=== PATIENT | female | born 1980 | race Caucasian/White ===

== ENCOUNTER 2023-04-17 10:27 | Emergency (ER) | payer BC, SELFPAY ==
[2023-04-17 10:34] VITALS: BP 123/90; PULSE 94; RESP 16; TEMP 36.7; O2SAT 96; BMI 36.0
--- NOTE | 2023-04-17 10:39 | XR_ITS ---
The [address] [address] Patient Name: ALEN TURNER MRN: [id number] date: 1980 Sex: F Assigned Patient Location: ER Current Patient Location: ER Accession/Order Number: [id number] Exam Date: 04/17/2023 10:45 Report Date: 04/17/2023 11:04 At the request of: KWABENA GONZALEZ Procedure: XR knee RT 4V EXAM: XR knee RT 4V HISTORY: Fall; technologist notes state right knee pain, locking and popping following a fall and twisting injury last night. COMPARISON: None. TECHNIQUE: 4 views of the right knee performed. FINDINGS: The bony alignment and mineralization are normal. There is no fracture. The joint spaces are normal. There is no joint effusion at the knee. There is no soft tissue abnormality. XR/XR knee RT 4V IMPRESSION: Unremarkable right knee series. Electronically authenticated by: PAMELA GRIER Date: 04/17/2023 11:04
--- NOTE | 2023-04-17 10:44 | ED.LOWEXI1 ---
HPI - Extremity Injury (Lower) General Chief Complaint: Extremity Injury, Lower Stated Complaint: RIGHT KNEE PAIN, TRAUMATIC Time Seen by Provider: 04/17/23 10:42 Source: patient Mode of arrival: walk-in Limitations: no limitations History of Present Illness HPI Narrative: 43-year-old female presents for right knee pain. It twisted last night and she fell. It hurts to bear weight on it and does not hurt much to push on it. No other injury was sustained, no pain in the ankle or hip. She is never had issues with this knee previously. Related Data Previous Rx's Medication Instructions Recorded acetaminophen 300 mg-codeine 30 mg 1 tab PO Q6H PRN pain 5 days #20 04/17/23 tablet tabs ibuprofen 800 mg tablet 800 mg PO Q8H PRN pain #20 tabs 04/17/23 Allergies Allergy/AdvReac Type Severity Reaction Status Date / Time No Known Drug Allergies Allergy Verified 04/17/23 10:34 Review of Systems ROS Narrative A ten point review of systems is negative except as noted above. PFSH PFSH Social History Smoking status: Current some day smoker Exam Narrative Exam Narrative: Nurses note and vital signs reviewed and patient is not hypoxic. General: The patient appears well and in no apparent distress. Patient is resting comfortably on cart. Skin: Warm, dry, no pallor noted. There is no rash noted. Head: Normocephalic, atraumatic Eye: Normal conjunctiva, no drainage Ears, Nose, Mouth, and Throat: oral mucosa is moist. Nares patent. Cardiovascular: Regular Rate and Rhythm Respiratory: Patient is in no distress, no accessory muscle use, lungs are clear to auscultation, no wheezing, rales or rhonchi Back: non-tender GI: Soft and nontender Musculoskeletal: The right ankle and hip are nontender. The right knee has no obvious deformity or palpable tenderness Neurological: A&O, normal speech Psychiatric: Cooperative Constitutional Vital Signs, click to edit/add: Last Vital Signs Temp 98.1 F 04/17/23 10:34 Pulse 94 H 04/17/23 10:34 Resp 16 04/17/23 10:34 BP 123/90 04/17/23 10:34 Pulse Ox 96 04/17/23 10:34 O2 Del Method Room Air 04/17/23 10:34 Course Vital Signs Vital signs: Vital Signs Temperature 98.1 F 04/17/23 10:34 Pulse Rate 94 H 04/17/23 10:34 Respiratory Rate 16 04/17/23 10:34 Blood Pressure 123/90 04/17/23 10:34 Pulse Oximetry 96 04/17/23 10:34 Oxygen Delivery Method Room Air 04/17/23 10:34 Temperature 98.1 F 04/17/23 10:34 Pulse Rate 94 H 04/17/23 10:34 Respiratory Rate 16 04/17/23 10:34 Blood Pressure 123/90 04/17/23 10:34 Pulse Oximetry 96 04/17/23 10:34 Oxygen Delivery Method Room Air 04/17/23 10:34 MDM - Extremity Injury (Lower) MDM Narrative Medical decision making narrative: X-ray per radiologist shows no acute findings. Knee immobilizer applied, application checked by me and found to be appropriate, she is neurovascularly intact. She will follow-up with orthopedics. Treatment diagnosis and follow-up were discussed with the patient Differential Diagnosis Differential diagnosis: Likely other (Knee sprain, knee strain, knee fracture, knee effusion) Imaging Data Knee: Radiologist's impression: ITS Impressions Knee X-Ray 04/17/23 10:39 IMPRESSION: Unremarkable right knee series. Electronically authenticated by: PAMELA GRIER Date: 04/17/2023 11:04 Discharge Plan Discharge Chief Complaint: Extremity Injury, Lower Clinical Impression: Right knee sprain Patient Disposition: Home, Self-Care Time of Disposition Decision: 11:15 Condition: Good Mode of Transportation: Private Vehicle Prescriptions / Home Meds: New acetaminophen-codeine 300-30 mg tablet 1 tab PO Q6H PRN (Reason: pain) 5 Days Qty: 20 0RF ibuprofen 800 mg tablet 800 mg PO Q8H PRN (Reason: pain) Qty: 20 0RF Instructions: Knee Sprain (ED) Additional Instructions: Follow-up with Dr. Liu Stand Alone Forms: Portal Instructions Referrals: Physician,Non-Staff, MD [Primary Care Provider] - 1 week
[2023-04-17] MEDS: ACETAMINOPHEN 300 MG/ 30 MG CODEINE TABLET 1 TAB PO (11:29)
== END 2023-04-17 11:33 | disposition home or self-care (01) ==
PROVIDERS: Emergency Provider Emergency Medicine
DX: S83.91XA Sprain of unspecified site of right knee, initial encounter (principal); W19.XXXA Unspecified fall, initial encounter; F17.210 Nicotine dependence, cigarettes, uncomplicated
CPT/HCPCS: 73564; 99283

== ENCOUNTER 2023-04-24 08:47 | Outpatient (OUT) | payer BC, SELFPAY ==
--- NOTE | 2023-04-24 | XR_ITS ---
The [address] [address] Patient Name: ALEN TURNER MRN: [id number] date: 1980 Sex: F Assigned Patient Location: Current Patient Location: Accession/Order Number: [id number] Exam Date: 04/24/2023 08:49 Report Date: 04/24/2023 09:23 At the request of: URSZULA AVILA Procedure: XR knee RT 4V PROCEDURE: XR knee RT 4V HISTORY: RIGHT KNEE PAIN since falling COMPARISON: XR knee right 04/17/2023 FINDINGS: BONES:No fracture, acute abnormality, or significant arthropathy. SOFT TISSUES:No visible soft tissue swelling. EFFUSION:None visible. OTHER: Negative. XR/XR knee RT 4V IMPRESSION: 1. No acute bone abnormality or significant degenerative joint disease. Electronically authenticated by: URSZULA ELIZONDO Date: 04/24/2023 09:23
--- OUTSIDE RECORDS SUMMARY | 2023-04-24 08:52 | XMS_ITS | CCD ---
Author Name Unknown Address [facility] [address] [place] [address] Organization [facility] Care Team Providers Care Trichologist Name Role Phone Rafaela West Primary Care Physician LOUIS, DR GALAN Admitting Unavailable LOUIS, DR GALAN Attending Unavailable MISC, DR BOLTON Primary Care Unavailable LOUIS, DR GALAN Consulting Unavailable JANETC, DR BOLTON Primary Care Unavailable JESUS, DR ELY Melissa Admitting Unavailcarrie LEE, DR ELY Melissa Attending Unavailabl e JESUS, DR ELY Melissa Consulting UnavailAnahy Hopson Attending Unavailable Rafaela West Attending Unavailable Rafaela West Attending Unavailable Rafaela West Attending Unavailable Rafaela West Attending Unavailable Shelia Gomez CNP Primary Care Provider [phone] Unavailable Primary Care Provider Gigi Morales MD Attending Unavailable SHELIA GOMEZ Referring Unavailable Medications Current Medications Medication Drug Class(es) Dates Sig (Normalized) Sig (Original) benzonatate 200 mg oral capsule (1 source) Non-narcotic Antitussive Start: 11-10-2021 End: 11-20-2021 take 1 capsule by mouth three times daily benzonatate 200 mg oral capsule 200 mg = 1 cap(s), Oral, TID, do not crush or chew, X 10 day(s), # 30 cap(s), Refills(s) 0, Pharmacy: [facility], 170, cm, 11/10/21 16:30:00 EDT, Height/Length Dosing, 110.6, kg, 11/10/21 16:30:00 EDT, Weight Dosing Start Date: 11/10/21 Stop Date: 11/20/21 Status: Ordered Brompheniramine / Pseudoephedrine (1 source) alpha-Adrenergic Agonist Start: 07-26-2021 take 10 mL by mouth four times daily for cough and congestion Bromfed DM oral syrup 10 mL, Oral, QID for cough and congestion, 200 mL, Refill(s) 0, [id number], 170, cm, 12/08/20 10:31:00 EDT, Height/Length Dosing, 113.5, kg, 12/08/20 10:31:00 EDT, Weight Dosing Start Date: 07/26/21 Status: Ordered cetirizine hydrochloride 10 mg oral tablet (1 source) Histamine-1 Receptor Antagonist Start: 12-13-2021 take 1 tablet by mouth once daily cetirizine 10 mg Tab 10 mg = 1 tab(s), Oral, Daily, # 90 tab(s), Refills(s) 3, Pharmacy: [facility], 170, cm, 12/13/21 17:01:00 EDT, Height/Length Dosing, 106.1, kg, 12/13/21 17:01:00 EDT, Weight Dosing Start Date: 12/13/21 Status: Ordered fluticasone propionate 0.05 mg/actuat metered dose nasal spray (1 source) Corticosteroid Start: 12-13-2021 End: 12-08-2022 take 1 spray(s) nasal route once daily Flonase 0.05 mg/inh nasal spray 1 spray(s), Nasal, Daily for 30 day(s), 16 gram, Refill(s) 11, each nostril, [facility], 170, cm, 12/13/21 17:01:00 EDT, Height/Length Dosing, 106.1, kg, 12/13/21 17:01:00 EDT, Weight Dosing Start Date: 12/13/21 Stop Date: 12/08/22 Status: Ordered methylPREDNISolone 4 mg oral tablet (1 source) Corticosteroid Start: 07-26-2021 End: 08-01-2021 Medrol 4 mg Tab = 1 packet(s), Oral, As Directed, as directed on package labeling, X 6 day(s), # 21 tab(s), Refills(s) 0, Pharmacy: [id number], 170, cm, 12/08/20 10:31:00 EDT, Height/Length Dosing, 113.5, kg, 12/08/20 10:31:00 EDT, Weight Dosing Start Date: 07/26/21 Stop Date: 08/01/21 Status: Ordered ondansetron 4 mg oral tablet (4 sources) Serotonin-3 Receptor Antagonist Start: 01-04-2021 take 1 tablet by mouth every eight hours as needed for nausea Zofran 4 mg Tab 4 mg = 1 tab(s), Oral, q8hr, PRN Nausea, # 20 tab(s), Refills(s) 2, Pharmacy: [facility], 170, cm, 12/08/20 10:31:00 EDT, Height/Length Dosing, 113.5, kg, 12/08/20 10:31:00 EDT, Weight Dosing Start Date: 01/04/21 Status: Ordered phentermine hydrochloride 37.5 mg oral tablet (2 sources) Sympathomimetic Amine Anorectic Start: 11-10-2021 End: 12-10-2021 take 1 tablet by mouth once daily 1 hour(s) after mealtime Adipex-P 37.5 mg Tab 37.5 mg = 1 tab(s), Oral, Daily, 1 hour before or 2 hours after meals., X 30 day(s), # 30 tab(s), Refills(s) 0, Pharmacy: [facility], 170, cm, 11/10/21 16:30:00 EDT, Height/Length Dosing, 110.6, kg, 11/10/21 16:30:00 EDT, Weight Dosing Start Date: 11/10/21 Stop Date: 12/10/21 Status: Ordered Start: 10-06-2021 End: 11-05-2021 take 1 tablet by mouth once daily 1 hour(s) after mealtime Adipex-P 37.5 mg Tab 37.5 mg = 1 tab(s), Oral, Daily, 1 hour before or 2 hours after meals. Adipex #1. OARRS reviewed. BMI>30., X 30 day(s), # 30 tab(s), Refills(s) 0, Pharmacy: [facility], 170, cm, 10/06/21 16:26:00 EDT, Height/Length Dosing, 114.3, kg, 080... Start Date: 10/06/21 Stop Date: 11/05/21 Status: Ordered predniSONE 20 mg oral tablet (1 source) Start: 11-10-2021 End: 11-15-2021 take 2 tablets by mouth once daily at mealtime predniSONE 20 mg Tab 40 mg = 2 tab(s), Oral, Daily, with food or milk, X 5 day(s), # 10 tab(s), Refills(s) 0, Pharmacy: [facility], 170, cm, 11/10/21 16:30:00 EDT, Height/Length Dosing, 110.6, kg, 11/10/21 16:30:00 EDT, Weight Dosing Start Date: 11/10/21 Stop Date: 11/15/21 Status: Ordered Completed/Discontinued Medications Medication Drug Class(es) Dates Sig (Normalized) Sig (Original) Albuterol (Eqv-ProAir HFA) 90 mcg/inh inhalation aerosol (4 sources) Start: 07-26-2021 take 1 dose by inhalation every six hours Albuterol (Eqv-ProAir HFA) 90 mcg/inh inhalation aerosol 2 puff(s), Inhalation, q6hr, 1 EA, Refill(s) 5, [id number], 170, cm, 12/08/20 10:31:00 EDT, Height/Length Dosing, 113.5, kg, 12/08/20 10:31:00 EDT, Weight Dosing Start Date: 07/26/21 Status: Ordered nebulizer machine and mouthpiece (4 sources) Start: 12-07-2020 nebulizer machine and mouthpiece nebulizer machine and mouthpiece, See Instructions, 1 EA, 0, Please dispense 1 nebulizer machine with adult mouthpiece kit. J20.8, Supply Start Date: 12/07/20 Status: Ordered Problems Active Problems Problem Classification Problem Date Documented Date Episodic/Chronic Administrative/social admission (6 sources) Patient encounter status; Translations: [Persons encountering health services in other specified circumstances] Onset: 10-05-2021 Episodic Anxiety disorders (4 sources) Mixed anxiety and depressive disorder 09-25-2020 Chronic Chronic obstructive pulmonary disease and bronchiectasis (4 sources) Bronchitis 09-25-2020 Episodic Conditions associated with dizziness or vertigo (4 sources) Dizziness and giddiness; Translations: [Unspecified disorder of vestibular function, unspecified ear] Onset: 11-11-2021 Episodic Immunizations and screening for infectious disease (8 sources) Exposure to sexually transmissible disorder; Translations: [Contact with or exposure to venereal diseases] Onset: 05-16-2022 Episodic Other nutritional; endocrine; and metabolic disorders (6 sources) Obesity; Translations: [Obesity, unspecified] Onset: 10-06-2021 10-26-2020 Chronic Other nutritional; endocrine; and metabolic disorders (2 sources) Obese class II; Translations: [Body mass index (BMI) 39.0-39.9, adult] Onset: 10-06-2021 Chronic Other nutritional; endocrine; and metabolic disorders (3 sources) Body mass index 30+ - obesity 10-06-2021 Chronic Other nutritional; endocrine; and metabolic disorders (3 sources) Finding of body mass index; Translations: [Body mass index (observable entity)] Onset: 05-16-2022 Chronic Other screening for suspected conditions (not mental disorders or infectious disease) (3 sources) Encounter for screening for diabetes mellitus; Translations: [Diabetes Risk Test Score] Onset: 05-16-2022 Episodic Other upper respiratory disease (4 sources) Allergic rhinitis 09-25-2020 Chronic Other upper respiratory infections (4 sources) Viral upper respiratory tract infection 12-02-2020 Episodic Spondylosis; intervertebral disc disorders; other back problems (4 sources) Low back pain 09-25-2020 Episodic Substance-related disorders (6 sources) Cocaine abuse; Translations: [Cocaine abuse, unspecified] Onset: 05-16-2022 Chronic Unclassified (4 sources) Non-smoker 09-25-2020 Unclassified (4 sources) Patient encounter status 10-26-2020 Unclassified (2 sources) COUGH, UNSPECIFIED; Translations: [COUGH, UNSPECIFIED] Onset: 05-17-2021 Past or Other Problems Problem Classification Problem Date Documented Da te Episodic/Chronic Acute bronchitis (1 source) Acute bronchitis, unspecified; Translations: [ACUTE BRONCHITIS UNSPECIFIED] Onset: 05-17-2021 Episodic Unclassified (1 source) COUGH, UNSPECIFIED; Translations: [COUGH, UNSPECIFIED] Onset: 05-14-2021 Unclassified (3 sources) 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 Amplification of target nucleic acid may have been Abnormal NEG [facility] Comment on above: Result Comment: affe cted by inhibitory substances present in the specimen. This test is intended for medical purposes only and is not valid for the evaluation of suspected sexual abuse or for other forensic purposes. In certain contexts, culture may be required to meet applicable laws and regulations for diagnosis of C. trachomatis and N. gonorrhoeae infections. Per 2014 CDC recommendations, this test does not include confirmation of positive results by an alternative nucleic acid target. Performed By: #### T RCMOL, VAGP, UCGP #### [address] [id number] [employer] Cover[employer] Consultant: Yoni Paniagua MD Gonorrhea Probe, Ur Result indeterminate . Amplification of target nucleic acid may have been Abnormal NEG [facility] Comment on above: Result Comment: affe cted by inhibitory substances present in the specimen. This test is intended for medical purposes only and is not valid for the evaluation of suspected sexual abuse or for other forensic purposes. In certain contexts, culture may be required to meet applicable laws and regulations for diagnosis of C. trachomatis and N. gonorrhoeae infections. Per 2014 CDC recommendations, this test does not include confirmation of positive results by an alternative nucleic acid target. Performed By: #### T RCMOL, VAGP, UCGP #### [place] [id number] [employer] Consultant: Yoni Paniagua MD HCV RNA,Quant,PCRon 05-18-19 23 HCV RNA,Quant Not detected Normal NOTDET [facility] Comment on above: Result Comment: INTERPRETIVE INFORMATION: HCV by Quantitative NAAT, Serum or Plasma Normal Range for this assay is Not Detected . The quantitative range of this assay is 15-30,000,000 IU/mL (1.17-7.48 log IU/mL). Lower limit of quantitation(LLoQ) is 15 IU/mL(1.17 log IU/mL). LLoQ values do not apply to diluted specimens. A result of Not Detected does not rule out the presence of inhibitors in the patient specimen or hepatitis C virus RNA concentrations below the level of detection of the test. Care should be taken when interpreting any single viral load determination. This test should not be used for blood donor screening, associated re-entry protocols, or for screening Human Cell, Tissues and Cellular Tissue-Based Products (HCT/P). Performed By: #### H CVQN, QBVD, HIVQN #### [facility] [address] [place] [address] [id number] [employer] Consultant: Yoni Paniagua MD HIV-1,Quant,RNAon 05-17-2022 HIV-1,RNA Not detected Normal NOTDET [facility] Comment on above: Result Comment: INTERPRETIVE INFORMATION: HIV-1 by Quantitative NAAT,Plasma Normal range for this assay is Not Detected . The quantitative range of this assay is 1.30-6.78 log copies/mL (20-6,000,000 copies/mL). An interpretation of Not Detected does not rule out the presence of inhibitors or HIV-1 RNA detection of the assay. Care should be taken in the interpretation of any single viral load determination. The clinical significance of changes in HIV-1 RNA concentration has not been fully established. However, a change of 0.5 log copies/mL may be significant.This assay should not be used for blood donor screening, associated re-entry protocols, or for screening Human Cell, Tissues and Tissue based Products(HCT/P). This assay has not been evaluated in patients younger than 19 years of age. Performed By: #### H CVQN, QBVD, HIVQN #### [facility] [address] [place] [address] [phone] [employer] Consultant: Yoni Paniagua MD Source .PLASMA Normal [facility] Comment on above: Performed By: #### H CVQN, QBVD, HIVQN #### [facility] [address] [place] [address] [phone] [employer] Consultant: Yoni Paniagua MD Trich Vag, Molecularon 05-17 Trich Vag, Molecular Negative Normal NEG [facility] Comment on above: Result Comment: T. v aginalis DNA not detected Results should be interpreted in conjunction with other clinical data. This test is intended for medical purposes only and is not valid for the evaluation of suspected sexual abuse or for other forensic purposes. This test has not been evaluated in women or in patients less than 16 years of age. Performed By: #### T RCMOL, VAGP, UCGP #### [address] [address] [employer] Consultant: Yoni Paniagua MD Source: .URINE Normal [facility] Comment on above: Performed By: #### T RCMOL, VAGP, UCGP #### [address] [id number] [employer] Consultant: Yoni Paniagua MD VDRL, Quantitativeon 023 VDRL, Quantitative Non-Reactive Normal NR [facility] Comment on above: Performed By: #### H CVQN, QBVD, HIVQN #### [address] [address] [employer] Consultant: Yoni Paniagua MD Vaginitis DNA Probeon 2022 Zelda Negative Normal NEG [facility] Comment on above: Result Comment: for Zelda sp. Method of testing is a DNA probe intended for detection and identification of Zelda species, Gardnerella vaginalis, and Trichomonas vaginalis nucleic acid in vaginal fluid specimens from patients with symptoms of vaginitis/vaginosis. Performed By: #### T RCMOL, VAGP, UCGP #### [facility] [address] [place] [id number] [employer] Consultant: Yoni Paniagua MD Gardnerella Negative Normal NEG [facility] Comment on above: Result Comment: for Gardnerella vaginalis Performed By: #### T RCMOL, VAGP, UCGP #### [address] [address] [employer] Consultant: Yoni Paniagua MD Trichomonas Negative Normal NEG [facility] Comment on above: Result Comment: for Trichomonas Vaginalis Performed By: #### T RCMOL, VAGP, UCGP #### [facility] [address] [place], [place] [phone] [employer] Consultant: Yoni Paniagua MD Source .VAGINAL SWAB Normal [facility] Comment on above: Performed By: #### T RCMOL, VAGP, UCGP #### [facility] [address] [place], [place] [phone] [employer] Consultant: Yoni Paniagua MD Laboratory - Microbiology an d Antimicrobial susceptibilityon 05-16-2022 HIV 1 RNA SALOME+probe [#/Vol] Not detected (NOTDET ) [facility] Comment on above: Note: INTERPRETIVE I NFORMATION: HIV-1 by Quantitative NAAT,PlasmaNormal range for this assay is Not Detected . The quantitative range of thisassay is 1.30-6.78 log copies/mL (20-6,000,000 copies/mL). An interpretation of Not Detected does not rule out the presence of inhibitors or HIV-1 RNAdetection of the assay.Care should be taken in the interpretation of any single viral loaddetermination. The clinical significance of changes in HIV-1 RNA concentrationhas not been fully established. However, a change of 0.5 log copies/mL may besignificant.This assay should not be used for blood donor screening, associatedre-entry protocols, or for screening Human Cell, Tissues and Tissue basedProducts(HCT/P).This assay has not been evaluated in patients younger than 19 years of age.Responsible Observer: BETSY PARHAM ([id number]) No Panel Informationon 05-16 HCV RNA,Quant Not detected (NOTDET ) [facility] Comment on above: Note: INTERPRETIVE I NFORMATION: HCV by Quantitative NAAT, Serum or PlasmaNormal Range for this assay is Not Detected . The quantitative range of thisassay is 15-30,000,000 IU/mL (1.17-7.48 log IU/mL). Lower limit ofquantitation(LLoQ) is 15 IU/mL(1.17 log IU/mL). LLoQ values do not apply todiluted specimens.A result of Not Detected does not rule out the presence of inhibitors in thepatient specimen or hepatitis C virus RNA concentrations below the level ofdetection of the test. Care should be taken when interpreting any single viralload determination.This test should not be used for blood donor screening, associated re-entryprotocols, or for screening Human Cell, Tissues and Cellular Tissue-BasedProducts (HCT/P).Responsible Observer: BETSY PARHAM ([id number]) Reported Physicians See Note [facility] Comment on above: Note: Reported Physi cians:Ordering: Shelia GomezAttending: Shelia GomezReferring: Shelia Gomez Source .PLASMA [facility] Comment on above: Note: Responsible Ob primer powder blender wet: GABBY THAO ([id number]) VDRL, Quantitative Non-Reactive (NR ) [facility] Comment on above: Note: Responsible Ob primer powder blender wet: BEVERLY JC (189) Zelda Negative (NEG ) [facility] Comment on above: Note: for Zelda sp .Method of testing is a DNA probe intended for detection and identification ofCandida species, Gardnerella vaginalis, and Trichomonas vaginalis nucleic acidin vaginal fluid specimens from patients with symptoms of vaginitis/vaginosis.Responsible Observer: DAYNA BLISS ([id number]) Chlamydia Probe, Ur Result indeterminate . Amplification of target nucleic acid may have been Abnormal (NEG ) [facility] Comment on above: Note: affected by in hibitory substances present in the specimen.This test is intended for medical purposes only and is not valid for theevaluation of suspected sexual abuse or for other forensic purposes.In certain contexts, culture may be required to meet applicable laws andregulations for diagnosis of C. trachomatis and N. gonorrhoeae infections.Per 2014 CDC recommendations, this test does not include confirmation ofpositive results by an alternative nucleic acid target.Responsible Observer: TIMMY VIDAL ([id number]) Gardnerella Negative (NEG ) [facility] Comment on above: Note: for Gardnerell a vaginalisResponsible Observer: DAYNA BLISS ([id number]) Gonorrhea Probe, Ur Result indeterminate . Amplification of target nucleic acid may have been Abnormal (NEG ) [facility] Comment on above: Note: affected by in hibitory substances present in the specimen.This test is intended for medical purposes only and is not valid for theevaluation of suspected sexual abuse or for other forensic purposes.In certain contexts, culture may be required to meet applicable laws andregulations for diagnosis of C. trachomatis and N. gonorrhoeae infections.Per 2014 CDC recommendations, this test does not include confirmation ofpositive results by an alternative nucleic acid target.Responsible Observer: TIMMY VIDAL ([id number]) Reported Physicians See Note [facility] Comment on above: Note: Reported Physi cians:Ordering: Shelia GomezAttending: Shelia GomezReferring: Shelia Gomez Source .VAGINAL SWAB [facility] Comment on above: Note: Responsible Ob primer powder blender wet: GERALDO ARGUELLO ([id number]) Source: .URINE [facility] Comment on above: Note: Responsible Ob primer powder blender wet: GERALDO ARGUELLO ([id number]) Trich Vag, Molecular Negative (NEG ) [facility] Comment on above: Note: T. vaginalis D NA not detectedResults should be interpreted in conjunction with other clinical data.This test is intended for medical purposes only and is not valid for theevaluation of suspected sexual abuse or for other forensic purposes.This test has not been evaluated in women or in patients less than 16years of age.Responsible Observer: STEVE MARTINES ([id number]) Trichomonas Negative (NEG ) [facility] Comment on above: Note: for Trichomona s VaginalisResponsible Observer: DAYNA BLISS ([id number]) Family Medicine Office/Clini c Noteon 12-14-2021 Family Medicine Office/Clinic Note Chief Complaint pt here for adipex #3. down 10lbs. History of Present Illness Pt presents today for Adipex f/u. Adipex #:3 Started at 39.55 kg 1st month on medication: 38.27 kg 2nd month on medication: 36.71 kg Feeling really good. The day after her last dose as started. She started having vertigo sleeping. This happened at work. Went to the ER. Was sitting down and then stood up, felt lightheaded. A few minutes later, room started spinning, felt like on [id number], 5 minutes vomited. Went to [place] ER- gave her antiemetic, and Meclizine and Valium. Then sent her home with Meclizine but has not needed it. Allergies are horrible, taking Advil allergy without relief. Dizziness has never happened to her before when she was on Adipex before. Sleeping well: yes Chest pain: no Tremors: no Headaches: No Increased heart rate: No Increased blood pressure: No Heart fluttering: No Blurred Vision: No Insomnia: No Dry mouth: No Constipation: No Nervousness: No Eating habits-logs: smaller portions, healthy options Exercise-logs: was walking a lot; but since new job gets 10,000 steps in at work and in process of moving. Concerns/complaints: none Review of Systems Constitutional: no fever, no chills, no sweats, no weakness, no fatigue, no body aches. Skin: no rash, no skin lesions, no petechiae. Eyes: no eye irritation, no eye drainage, no blurry vision, no double vision, no loss of vision, no foreign body sensation. Ears: no ear pain, no __ ear drainage, no_ itching, no_ tinnitus, no _ popping, no _ muffled hearing. Nose: clear rhinorrhea, mild nasal congestion, no bloody noses, no upper dental pain, reports PND. Throat: no pain, no difficulty swallowing, no laryngitis, reports hoarseness. Respiratory: no shortness of breath, no cough, no wheezing. Cardiovascular: no chest pain, no palpitations, no edema. Gastrointestinal: no nausea, no vomiting, no diarrhea, no bleeding, no abdominal pain. Musculoskeletal: no back pain, no neck pain, no shoulder pain, no knee pain, no trauma/injury, no joint pain, no joint swelling, no muscle aches, no change in ROM. Neurovascular: no numbness, no tingling, no headaches, no dizziness. Psychological: see depression screen. Physical Exam Vitals & Measurements T: 36.5 ?C(Oral) HR: 92(Peripheral) BP: 132/70 SpO2: 98% HT: 67 in HT: 170 cm WT: 106.1 kg WT: 233.42 lb BMI: 36.71 General: well developed, well groomed, obese in no acute distress. Eyes: pupils equal, round, reactive to light. Conjunctivae normal and sclera clear. Extraocular movement intact. Ears: bilateral external canals intact , no discharge. Bilateral tympanic membrane yellow and intact, light reflex present. No pain with manipulation of tragus and pinna bilaterally. Hearing grossly normal to conversational speech. Nose: no congestion, no erythema; pink & moist turbinates; no rhinorrhea. Mild congestion noted. Mouth: mucous membranes pink, moist and intact. [place] posterior oropharynx, no palatal inflammation, uvula midline, no cobble-stoning, no enlarged tonsils, no tonsillar exudate, no ulcers, with active post nasal drip. Neck: supple, no masses palpable. Trachea midline. No palpable cervical adenopathy. Lungs: normal respiratory effort. Lungs clear and equal to auscultation throughout all smith anterior and posterior. Cardiovascular: S1 and S2 present, with regular rate and rhythm. No murmur. No peripheral edema. Abdomen: soft, non-distended, non-tender. Bowel sounds active throughout. Musculoskeletal: Gait steady without assistance. Neurologic: Cranial nerves II-XII grossly intact. Skin: [place], warm and dry. No rashes, ulcerations, or suspicious lesions noted on visible/exposed skin. Mental status: alert and oriented x 3. Normal mood and affect, normal behavior for age. Assessment/Plan 1. Encounter for weight management (Z76.89: Persons encountering health services in other specified circumstances) Adipex #3 refilled. F/u in 1 month. Continue diet and exercise; over and beyond work now. OARRS reviewed. Ordered: phentermine, 37.5 mg = 1 tab(s), Oral, Daily, 1 hour before or 2 hours after meals., X 30 day(s), # 30 tab(s), Refills(s) 0, Pharmacy: [facility], 170, cm, 12/13/21 17:01:00 EDT, Height/Length Dosing, 106.1, kg, 12/13/21 17:01:00 EDT, Weight Dosing 2. Allergic rhinitis (J30.9: Allergic rhinitis, unspecified) Avoid known triggers. Will treat symptoms with daily Zyrtec and nightly Flonase nasal spray, reviewed dosing, s/e, and administration. Try sinus irrigation kits as well. F/u PRN. Ordered: cetirizine, 10 mg = 1 tab(s), Oral, Daily, # 90 tab(s), Refills(s) 3, [facility], 170, cm, 12/13/21 17:01:00 EDT, Height/Length Dosing, 106.1, kg, 12/13/21 17:01:00 EDT, Weight Dosing fluticasone nasal, 1 spray(s), Nasal, Daily for 30 day(s), 16 gram, Refill(s) 11, each nostril, [facility], 170, cm, 12/13/21 17:01:00 EDT, Height/Length Dosing, 106.1, kg, (more content not included)... [facility] Comment on above: Result Comment: Elec tronically Signed By: Rafaela West CNP.mikael\Date and Time Signed: 12/14/21 13:35 EDT Patient Educationon 12-15-19 Patient Education Immunology Allergic Rhinitis, Adult Allergic rhinitis is an allergic reaction that affects the mucous membrane inside the nose. It causes sneezing, a runny or stuffy nose, and the feeling of mucus going down the back of the throat (postnasal drip). Allergic rhinitis can be mild to severe. There are two types of allergic rhinitis: ? Seasonal. This type is also called hay fever. It happens only during certain seasons. ? Perennial. This type can happen at any time of the year. What are the causes? This condition happens when the body's defense system (immune system) responds to certain harmless substances called allergens as though they were germs. Seasonal allergic rhinitis is triggered by pollen, which can come from grasses, trees, and weeds. Perennial allergic rhinitis may be caused by: ? House dust mites. ? Pet dander. ? Mold spores. What are the signs or symptoms? Symptoms of this condition include: ? Sneezing. ? Runny or stuffy nose (nasal congestion). ? Postnasal drip. ? Itchy nose. ? Tearing of the eyes. ? Trouble sleeping. ? Daytime sleepiness. How is this diagnosed? This condition may be diagnosed based on: ? Your medical history. ? A physical exam. ? Tests to check for related conditions, such as: ? Asthma. ? [place] eye. ? Ear infection. ? Upper respiratory infection. ? Tests to find out which allergens trigger your symptoms. These may include skin or blood tests. How is this treated? There is no cure for this condition, but treatment can help control symptoms. Treatment may include: ? Taking medicines that block allergy symptoms, such as antihistamines. Medicine may be given as a shot, nasal spray, or pill. ? Avoiding the allergen. ? Desensitization. This treatment involves getting ongoing shots until your body becomes less sensitive to the allergen. This treatment may be done if other treatments do not help. ? If taking medicine and avoiding the allergen does not work, new, stronger medicines may be prescribed. Follow these instructions at home: ? Find out what you are allergic to. Common allergens include smoke, dust, and pollen. ? Avoid the things you are allergic to. These are some things you can do to help avoid allergens: ? Replace carpet with wood, tile, or vinyl maria luisa. Carpet can trap dander and dust. ? Do not smoke. Do not allow smoking in your home. ? Change your heating and air conditioning filter at least once a month. ? During allergy season: ? Keep windows closed as much as possible. ? Plan outdoor activities when pollen counts are lowest. This is usually during the evening hours. ? When coming indoors, change clothing and shower before sitting on furniture or bedding. ? Take gycg-cpe-vizpzry and prescription medicines only as told by your health care provider. ? Keep all follow-up visits as told by your health care provider. This is important. Contact a health care provider if: ? You have a fever. ? You develop a persistent cough. ? You make whistling sounds when you breathe (you wheeze). ? Your symptoms interfere with your normal daily activities. Get help right away if: ? You have shortness of breath. Summary ? This condition can be managed by taking medicines as directed and avoiding allergens. ? Contact your health care provider if you develop a persistent cough or fever. ? During allergy season, keep windows closed as much as possible. This information is not intended to replace advice given to you by your health care provider. Make sure you discuss any questions you have with your health care provider. Document Released: 11/15/2001 Document Revised: 02/02/2018 Document Reviewed: 03/30/2017 [employer] Patient Education ? 2020 [employer] Nutrition Healthy Eating Following a healthy eating pattern may help you to achieve and maintain a healthy body weight, reduce the risk of chronic disease, and live a long and productive life. It is important to follow a healthy eating pattern at an appropriate calorie level for your body. Your nutritional needs should be met primarily through food by choosing a variety of nutrient-rich foods. What are tips for following this plan? Reading food labels ? Read labels and choose the following: ? Reduced or low sodium. ? Juices with 100% fruit juice. ? Foods with low saturated fats and high polyunsaturated and monounsaturated fats. ? Foods with whole grains, such as whole wheat, cracked wheat, brown rice, and wild rice. ? Whole grains that are fortified with folic acid. This is recommended for women who are or who want to become . ? Read labels and avoid the following: ? Foods with a lot of added sugars. These include foods that contain brown sugar, corn sweetener, corn syrup, dextrose, fructose, glucose, high-fructose corn syrup, honey, invert sugar, lactose, malt syrup, maltose, molasses, raw sugar, sucrose, trehalose, or turbinado sugar. ? Do not eat more than the following amounts (more content not included)... [facility] Ambulatory Visit Summaryon 1 Ambulatory Visit Summary ALEN GOMEZ :1980 Visit Date:12/13/2021 Ambulatory Visit Instructions Your Diagnosis Encounter for weight management BMI 36.0-36.9,adult Obesity, Obesity Non-smoker Allergic rhinitis Your Care Team Attending Physician - Rafaela West CNP Primary Care Physician - Rafaela West CNP This Is Your Medications List cetirizine (cetirizine 10 mg Tab) fluticasone nasal (Flonase 0.05 mg/inh nasal spray) phentermine (Adipex-P 37.5 mg Tab) Contact prescribing physician if questions or concerns Misc Prescription (nebulizer machine and mouthpiece) albuterol (Albuterol (Eqv-ProAir HFA) 90 mcg/inh inhalation aerosol) ondansetron (Zofran 4 mg Tab) Procedures Performed Tubal ligation. Discharge Vitals Temperature (Oral) 36.5 ?C Heart Rate (Peripheral) 92 Blood Pressure 132/70 Height 170 cm Height 67 in Weight 106.1 kg Weight 233.42 lb BMI 36.71 What to do next Scheduled Follow-Up Appointments 2021 5:00 PM EST With: Rafaela West CNP Where: [facility] Ambulatory Visit Summary ALEN GOMZE :1980 Visit Date:12/13/2021 Ambulatory Visit Instructions Your Diagnosis Encounter for weight management BMI 36.0-36.9,adult Obesity, Obesity Non-smoker Allergic rhinitis Your Care Team Attending Physician - Rafaela West CNP Primary Care Physician - Rafaela West CNP This Is Your Medications List cetirizine (cetirizine 10 mg Tab) fluticasone nasal (Flonase 0.05 mg/inh nasal spray) phentermine (Adipex-P 37.5 mg Tab) Contact prescribing physician if questions or concerns Misc Prescription (nebulizer machine and mouthpiece) albuterol (Albuterol (Eqv-ProAir HFA) 90 mcg/inh inhalation aerosol) ondansetron (Zofran 4 mg Tab) Procedures Performed Tubal ligation. Discharge Vitals Temperature (Oral) 36.5 ?C Heart Rate (Peripheral) 92 Blood Pressure 132/70 Height 170 cm Height 67 in Weight 106.1 kg Weight 233.42 lb BMI 36.71 What to do next Scheduled Follow-Up Appointments 2021 5:00 PM EST With: Rafaela West CNP Where: [facility] POINT OF CARE GLUCOSEon 09-0 Glucose [Mass/Vol] 97 mg/dL Normal 74-106 [facility] Comment on above: Performed By: #### P OCGLUC #### [facility] [address] [address] [address] Lindsay Jimenes Family Medicine Office/Clini c Noteon 11-10-2021 Family Medicine Office/Clinic Note Chief Complaint pt here for adipex #2. down 8lbs. History of Present Illness Pt presents today for Adipex #2 f/u. Started at 39.55 kg 1st month on medication: 38.27 kg Thinks she gained some back this weekend because she ate a lot this weekend. Was down to 238 lb, and ate a lot of food and had 2 drinks. Sleeping well: yes Chest pain: no Tremors: no Headaches: No Increased heart rate: No Increased blood pressure: No Heart fluttering: No Blurred Vision: No Insomnia: No Dry mouth: mild Constipation: No Nervousness: No Eating habits-logs: more water, small portions. Exercise-logs: walking every night for 1 hour. Concerns/complaints: none Now working at [employer] Believes she is developing bronchitis again, happens this time of year, annually. Dry cough, no other symptoms, mild chest tightness with cough. No meds at home. No sick contacts. Review of Systems Constitutional: no fever, no chills, no sweats, no weakness, no fatigue, no body aches. Skin: no rash, no skin lesions, no petechiae. Eyes: no eye irritation, no eye drainage, no vision changes. Ears: no ear pain, no __ ear drainage, no_ itching, no_ tinnitus, no _ popping, no _ muffled hearing. Nose: no rhinorrhea, no nasal congestion, no bloody noses, no upper dental pain. Throat: no pain, no difficulty swallowing, no laryngitis, no hoarseness. Respiratory: no shortness of breath, mild, dry cough, no wheezing. Cardiovascular: no chest pain, no palpitations, no edema. Gastrointestinal: no nausea, no vomiting, no diarrhea, no bleeding, no abdominal pain. Musculoskeletal: no joint pain, no joint swelling. Neurovascular: no numbness, no tingling, no headaches, no dizziness. Psychological: see depression screen. Physical Exam Vitals & Measurements T: 36.5 ?C(Oral) HR: 93(Peripheral) BP: 136/78 SpO2: 98% HT: 170 cm HT: 170.0 cm WT: 110.6 kg WT: 110.6 kg BMI: 38.27 General: well developed, well groomed, obese in no acute distress. Eyes: pupils equal, round, reactive to light. Conjunctivae normal and sclera clear. Ears: bilateral external canals intact , no discharge. Bilateral tympanic membrane pearly xavier and intact, light reflex present. No pain with manipulation of tragus and pinna bilaterally. Hearing grossly normal to conversational speech. Nose: no congestion, no erythema; pink & moist turbinates; no rhinorrhea. Mouth: mucous membranes pink, moist and intact. [place] posterior oropharynx, no palatal inflammation, uvula midline, tongue normal. Neck: supple, no masses palpable. Trachea midline. No palpable cervical adenopathy. Lungs: normal respiratory effort. Lungs clear and equal to auscultation throughout all smith anterior and posterior. Symmetrical chest rise and fall bilaterally. No conversational dyspnea. Dry cough noted. Cardiovascular: S1 and S2 present, with regular rate and rhythm. No murmur. Abdomen: soft, non-distended, non-tender. Bowel sounds active throughout. Musculoskeletal: Gait steady without assistance. Neurologic: Cranial nerves II-XII grossly intact. Skin: [place], warm and dry. No rashes, ulcerations, or suspicious lesions noted on visible/exposed skin. Mental status: alert and oriented x 3. Normal mood and affect, normal behavior for age. Assessment/Plan 1. Encounter for weight management (Z76.89: Persons encountering health services in other specified circumstances) Adipex #2. OARRS reviewed. Step up exercise and diet changes. F/u in 1 month. Ordered: phentermine, 37.5 mg = 1 tab(s), Oral, Daily, 1 hour before or 2 hours after meals., X 30 day(s), # 30 tab(s), Refills(s) 0, Pharmacy: [facility], 170, cm, 11/10/21 16:30:00 EDT, Height/Length Dosing, 110.6, kg, 11/10/21 16:30:00 EDT, Weight Dosing 2. Viral bronchitis (J20.8: Acute bronchitis due to other specified organisms) Discussed viral nature of bronchitis and average duration being 3-6 weeks. Encouraged frequent handwashing, coughing into elbow, etc. Will prescribe steroid and tessalon for symptoms. May try Mucinex if expectorating. Advised to f/u if symptoms have not improved over the next 2 weeks; or sooner if develops fevers, shortness of breath, and/or chest pain with deep breathing (consistent with pneumonia). Patient understands treatment plan. Continue albuterol. Ordered: benzonatate, 200 mg = 1 cap(s), Oral, TID, do not crush or chew, X 10 day(s), # 30 cap(s), Refills(s) 0, Pharmacy: [facility], 170, cm, 11/10/21 16:30:00 EDT, Height/Length Dosing, 110.6, kg, 11/10/21 16:30:00 EDT, Weight Dosing predniSONE, 40 mg = 2 tab(s), Oral, Daily, with food or milk, X 5 day(s), # 10 tab(s), Refills(s) 0, Pharmacy: [facility], 170, cm, 11/10/21 16:30:00 EDT, Height/Length Dosing, 110.6, kg, 11/10/21 16:30:00 EDT, Weight Dosing 3. BMI 38.0-38.9,adult (Z68.38: Body mass index [BMI] 38.0-38.9, adult) The standard range for ages 18 and older is >=18.5 and < 25 kg/m2. Your BMI today was above this range, this f (more content not included)... [facility] Comment on above: Result Comment: Elec tronically Signed By: Rafaela West CNP\.br\Date and Time Signed: 11/10/21 17:08 EDT Patient Educationon 11-11-19 Patient Education Infectious Disease Viral Respiratory Infection Test Why am I having this test? A viral respiratory infection test is done to diagnose certain viral infections of the respiratory system. The respiratory system includes the nose, throat, windpipe, and lungs. In this test, a sample of the fluid from the back of your nose and throat, or the nasopharynx, is collected and sent to a lab for testing. The results will show whether a virus is causing your infection. It will also help your health care provider plan for your treatment. You may be given this test if: ? You have symptoms of a respiratory infection, including fever, cough, or sore throat. ? You are at risk for a respiratory infection because of your work or travel. ? You have had contact with someone who is sick, or there are many people who are infected in your community. ? It is important to find out if you are infected, even if you do not have symptoms. You do not have to prepare for this test. What is being tested? This test checks for the presence of a virus in your respiratory system. It checks a sample for the genetic material that makes up the virus (viral genetic material). Sometimes the test may also be used to find bacteria. What kind of sample is taken? A sample of fluid from the back of your nose and throat, also called the nasopharyngeal fluid, is collected using a swab that is attached to a metal wire or plastic tube (nasopharyngeal swab test). What happens during the test? Your health care provider will collect the sample by: ? Tilting your head back. ? Inserting the swab through one nostril, and along the bottom of your nose, until it reaches the back of your nose (about 2 inches). ? Gently rolling the swab to collect nasopharyngeal fluid. If the swab cannot be easily passed through your nose, your health care provider may collect the nasopharyngeal fluid by: ? Inserting the swab through your mouth to the back of your throat. ? Inserting the swab custodial inside your nose, to the middle front of the nose. The collected sample will be placed in a culture tube, labeled with your name, and sent to the lab for processing. How are the results reported? Your test results will be reported as either positive or negative. Sometimes, the test results may report that a condition is present when it is not present (false-positive result). This can happen if genetic material remains from a virus. Sometimes, the test results may report that a condition is not present when it is present (false-negative result). This can happen if the sample was not collected properly or if there is not enough viral genetic material for the test to detect. What do the results mean? ? A positive result means that viral genetic material was found. This also means that you likely have respiratory infection from a virus. ? A negative result means that no viral genetic material was found. This also means that you likely do not have a respiratory infection from a virus. If you have a positive result, this test may identify the type of virus or bacteria that you have. The test may indicate whether your infection is from: ? Flu (influenza) viruses. ? Coronaviruses. ? Rhinoviruses. ? Adenoviruses. ? Respiratory syncytial virus (RSV). ? Bacteria such as pertussis (also called whooping cough), chlamydophila, or mycoplasma. Talk with your health care provider about what your results mean. Questions to ask your health care provider Ask your health care provider, or the department that is doing the test: ? When will my results be ready? ? How will I get my results? ? What are my treatment options? ? What other tests do I need? ? What are my next steps? Summary ? A viral respiratory infection test is done to diagnose certain viral infections in the respiratory system. ? This test involves collecting a sample of the fluid from the back of your nose and throat and testing it in a lab for the presence of the virus. ? The sample is collected using a swab attached to a metal wire or plastic tube (nasopharyngeal swab test). ? A positive result means that it is likely that you have a viral respiratory infection. A negative result means that it is likely that you do not have a viral respiratory infection. ? Talk with your health care provider about what your results mean. This information is not intended to replace advice given to you by your health care provider. Make sure you discuss any questions you have with your health care provider. Document Released: 08/20/2019 Document Revised: 09/17/2019 Document Reviewed: 08/20/2019 [employer] Patient Education ? 2019 FRS. Nutrition BMI for Adults Body mass index (BMI) is a number that is calculated from a person's weight and height. BMI may help to estimate how much of a person's weight is composed of fat. BMI can help identify those who may be at higher r (more content not included)... [facility] Family Medicine Office/Clini c Noteon 10-06-2021 Family Medicine Office/Clinic Note Chief Complaint pt here to discuss adipex, History of Present Illness Pt presents today to discuss Adipex. Was last on Adipex in October of 2020. Previous side effects to Adipex: none Hx of heart disease: no Hx drug abuse: no Hx bipolar: no Diet: smaller portions, trying to eat healthier. Has lost some weight. Exercise: none now Occupation: [employer] Review of Systems Constitutional: no fever, no chills, no sweats. Skin: no jaundice, no rash, no diaphoresis. Throat: no pain, no difficulty swallowing, no laryngitis, no hoarseness. Respiratory: no shortness of breath, no cough, no wheezing. Cardiovascular: no chest pain, no palpitations, no edema. Gastrointestinal: no nausea, no vomiting, no diarrhea, no abdominal pain. Neurovascular: no numbness or tingling, headaches, or dizziness. Psychological: see depression screen. Physical Exam Vitals & Measurements T: 36.4 ?C(Oral) HR: 83(Peripheral) BP: 128/66 SpO2: 98% HT: 170.0 cm HT: 170 cm WT: 114.3 kg WT: 114.3 kg BMI: 39.55 General: well developed, well groomed, morbidly obese, in no acute distress. Neck: supple, no masses palpable. Trachea midline. Thyroid without nodules/masses, tenderness, or enlargement. Lungs: normal respiratory effort. Lungs clear and equal to auscultation throughout all smith anterior and posterior. Symmetrical chest rise and fall bilaterally. Cardiovascular: S1 and S2 present, with regular rate and rhythm. No murmur. Abdomen: soft, non-distended, non-tender. No organomegaly. No guarding or rigidity. Bowel sounds active throughout. Neurologic: Cranial nerves II-XII grossly intact. Skin: [place], warm and dry. No rashes, excessive bruising, ulcerations, or suspicious lesions noted on visible/exposed skin. Mental status: alert and oriented x 3. Normal mood and affect, normal behavior for age. Assessment/Plan 1. Encounter for weight management (Z76.89: Persons encountering health services in other specified circumstances) Discussed importance of diet and exercise to be used in conjunction with medication management. Given Adipex Rules sheet and Weight Loss Tips sheet. Keep food and exercise log and bring to all appointments. OARRS reviewed and no suspicious activity is noted. Discussed potential side effects of Adipex: increased HR/BP, insomnia, dry mouth, constipation, nervousness. If experiences insomnia, take dose in AM. If develops constipation, increase water intake. Immediately STOP Adipex if develops chest pain, shortness of breath, palpitations. Follow up in 1 month. Call with issues. Ordered: phentermine, 37.5 mg = 1 tab(s), Oral, Daily, 1 hour before or 2 hours after meals. Adipex #1. OARRS reviewed. BMI>30., X 30 day(s), # 30 tab(s), Refills(s) 0, Pharmacy: [facility], 170, cm, 10/06/21 16:26:00 EDT, Height/Length Dosing, 114.3, kg, 08/0... 2. Non-smoker (Z78.9: Other specified health status) Continue non-smoking behaviors. 3. BMI 39.0-39.9,adult (Z68.39: Body mass index [BMI] 39.0-39.9, adult) See #1. Ordered: phentermine, 37.5 mg = 1 tab(s), Oral, Daily, 1 hour before or 2 hours after meals. Adipex #1. OARRS reviewed. BMI>30., X 30 day(s), # 30 tab(s), Refills(s) 0, Pharmacy: [facility], 170, cm, 10/06/21 16:26:00 EDT, Height/Length Dosing, 114.3, kg, 08/0... 4. Obesity (E66.9: Obesity, unspecified) See #1. Follow-up With When Contact Information Brett KENDALL, Rafaela Gatica Within 1 month [address] [place] [phone] [phone] Additional Instructions: Patient Education Obesity, Adult Exercising to Stay Healthy Healthy Eating BMI for Adults Health Maintenance, Female Problem List/Past Medical History Ongoing Allergic rhinitis Anxiety and depression BMI 39.0-39.9,adult Bronchitis Encounter for weight management Low back pain Non-smoker Obesity Viral URI Historical No qualifying data Procedure/Surgical History Tubal ligation. Medications Adipex-P 37.5 mg Tab, 37.5 mg= 1 tab(s), Oral, Daily Albuterol (Eqv-ProAir HFA) 90 mcg/inh inhalation aerosol, 2 puff(s), Inhalation, q6hr, 5 refills nebulizer machine and mouthpiece, See Instructions Zofran 4 mg Tab, 4 mg= 1 tab(s), Oral, q8hr, PRN, 2 refills Allergies No Known Allergies Social History Alcohol - Denies Alcohol Use, 09/25/2020 Exercise Exercise duration: 30. Exercise frequency: 1-2 times/week. Exercise type: Walking., 09/25/2020 Substance Abuse - Denies Substance Abuse, 09/25/2020 Tobacco - Denies Tobacco Use, 09/25/2020 Never (less than 100 in lifetime) Tobacco Use:. Never Smokeless Tobacco Use:., 10/06/2021 Family History Anxiety: Mother. Depression: Mother. Drug addiction: Mother. Heart attack: Mother and Father. Hypertension: Mother. Immunizations Vaccine Date Status Comments SARS-CoV-2 (COVID-19) mRNA-1273 vaccine 01/18/2021 Given Prophylaxis influenza virus vaccine, inactivated 01/18/2021 Given Prophylaxis SARS-CoV-2 (COVID-19) mRNA-1273 vaccine 03/30 (more content not included)... [facility] Comment on above: Result Comment: Elec tronically Signed By: Rafaela West CNP.br\Date and Time Signed: 10/06/21 16:45 EDT Patient Educationon 10-07-19 Patient Education Gastroenterology Obesity, Adult Obesity is the condition of having too much total body fat. Being overweight or obese means that your weight is greater than what is considered healthy for your body size. Obesity is determined by a measurement called BMI. BMI is an estimate of body fat and is calculated from height and weight. For adults, a BMI of 30 or higher is considered obese. Obesity can lead to other health concerns and major illnesses, including: ? Stroke. ? Coronary artery disease (CAD). ? Type 2 diabetes. ? Some types of cancer, including cancers of the colon, breast, uterus, and gallbladder. ? Osteoarthritis. ? High blood pressure (hypertension). ? High cholesterol. ? Sleep apnea. ? Gallbladder stones. ? Infertility problems. What are the causes? Common causes of this condition include: ? Eating daily meals that are high in calories, sugar, and fat. ? Being born with genes that may make you more likely to become obese. ? Having a medical condition that causes obesity, including: ? Hypothyroidism. ? Polycystic ovarian syndrome (PCOS). ? Binge-eating disorder. ? David syndrome. ? Taking certain medicines, such as steroids, antidepressants, and seizure medicines. ? Not being physically active (sedentary lifestyle). ? Not getting enough sleep. ? Drinking high amounts of sugar-sweetened beverages, such as soft drinks. What increases the risk? The following factors may make you more likely to develop this condition: ? Having a family history of obesity. ? Being a woman of descent. ? Being a man of descent. ? Living in an area with limited access to: ? [place], recreation centers, or sidewalks. ? Healthy food choices, such as grocery stores and [employer] markets. What are the signs or symptoms? The main sign of this condition is having too much body fat. How is this diagnosed? This condition is diagnosed based on: ? Your BMI. If you are an adult with a BMI of 30 or higher, you are considered obese. ? Your waist circumference. This measures the distance around your waistline. ? Your skinfold thickness. Your health care provider may gently pinch a fold of your skin and measure it. You may have other tests to check for underlying conditions. How is this treated? Treatment for this condition often includes changing your lifestyle. Treatment may include some or all of the following: ? Dietary changes. This may include developing a healthy meal plan. ? Regular physical activity. This may include activity that causes your heart to beat faster (aerobic exercise) and strength training. Work with your health care provider to design an exercise program that works for you. ? Medicine to help you lose weight if you are unable to lose 1 pound a week after 6 weeks of healthy eating and more physical activity. ? Treating conditions that cause the obesity (underlying conditions). ? Surgery. Surgical options may include gastric banding and gastric bypass. Surgery may be done if: ? Other treatments have not helped to improve your condition. ? You have a BMI of 40 or higher. ? You have life-threatening health problems related to obesity. Follow these instructions at home: Eating and drinking ? Follow recommendations from your health care provider about what you eat and drink. Your health care provider may advise you to: ? Limit fast food, sweets, and processed snack foods. ? Choose low-fat options, such as low-fat milk instead of whole milk. ? Eat 5 or more servings of fruits or vegetables every day. ? Eat at home more often. This gives you more control over what you eat. ? Choose healthy foods when you eat out. ? Learn to read food labels. This will help you understand how much food is considered 1 serving. ? Learn what a healthy serving size is. ? Keep low-fat snacks available. ? Limit sugary drinks, such as soda, fruit juice, sweetened iced tea, and flavored milk. ? Drink enough water to keep your urine pale yellow. ? Do not follow a fad diet. Fad diets can be unhealthy and even dangerous. Physical activity ? Exercise regularly, as told by your health care provider. ? Most adults should get up to 150 minutes of moderate-intensity exercise every week. ? Ask your health care provider what types of exercise are safe for you and how often you should exercise. ? Warm up and stretch before being active. ? Cool down and stretch after being active. ? Rest between periods of activity. Lifestyle ? Work with your health care provider and a dietitian to set a weight-loss goal that is healthy and reasonable for you. ? Limit your screen time. ? Find ways to reward yourself that do not involve food. ? Do not drink alcohol if: ? Your health care provider tells you not to drink. ? You are , may be , or are planning to become . ? If you drink alcohol: ? Limit how much you use to: ? 0?1 drink (more content not included)... Normal [facility] Office/Clini c Noteon 08-04-2021 Family Medicine Office/Clinic Note Chief Complaint sinus sxs HPI Staff PT is a VV today c/o not feeling well since Monday. Claims this AM she woke up with nasal drainage/congestion, sore throat, sinus pressure. Does have a cough with mucus that is yellow in color. Does have SOB and wheezing. Denies V&D, ear ache. Has been taking otc Advil sinus with slight relief but sxs come right back. History of Present Illness Alen Gomez is a 41-year-old female who presents today with cough, rhinorrhea, fatigue, head, and chest congestion. Alen explains that she has been sick since 07/23/2021. Since that time, she has been experiencing an increase in congestion, sore throat, sinus pressure, productive cough with yellow phlegm, shortness of breath, and wheezing. She has been taking Advil Sinus to relieve her symptoms. When she was younger, she was prone to frequent asthmatic bronchitis. Alen notes that she has begun to experience wheezing with her shortness of breath and cough. There has been no exposure to COVID-19. She does have an albuterol inhaler; however, it is almost empty. Alen denies fever or chills. She does have a tooth infection and will be calling the dentist for an antibiotic. Review of Systems ROS - Clinical Support GI Symptoms: None Cardiopulmonary Symptoms: Cough, Shortness of breath General Symptoms: Other: nasal drainage/congestion, sore throat, sinus pressure Genitourinary Symptoms: None Pain Symptoms: No Skin Symptoms: None Constitutional: no fever, no chills, no sweats, Positive for fatigue Skin: no discoloration, no rash, no lesions, no cyanosis. ENMT: no ear pain, no sore throat, Positive for congestion, no vision change. Positive for sinus pressure. Respiratory: Positive for shortness of breath and cough, no orthopnea, Positive for wheezing. Cardiovascular: no chest pain, no palpitations, no edema. Gastrointestinal: no nausea, no vomiting, no diarrhea, no constipation no GI bleeding. Genitourinary: no dysuria, no hematuria, no discharge, no pain. Musculoskeletal: no back pain, no trauma, no change in ROM, no stiffness Neurologic: Positive for headache, no dizziness, no numbness, no weakness. Psychiatric: no sleeping problems, no irritability, no mood swings/depression. Heme/Lymph: no bleeding tendency, no bruising tendency, no petechiae, no swelling Allergy/Immunologic: no seasonal allergies, no food allergies, no recurrent infections, no impaired immunity. Physical Exam General Exam: Constitutional: alert, congested with speaking. examined via telehealth video while patient is sitting comfortably at their home. No one else present. Neck: trachea midline, thyroid appears normal. no masses or lymphadenopathy noted Skin: normal color, no rashes, no lesions, no unusual bruising. Eyes: EOM intact, sclera and conjunctiva clear Ears: no external deformities, gross hearing intact. Nose: nasal passages clear, no external drainage noted. does not sound congested with speaking Mouth: oral mucosa pink, moist without lesions. Respiratory: no respiratory distress or tachypnea. no coughing during exam. talks easily without breathlessness noted Musculoskeletal: no deformities noted, normal rom in neck and arms/shoulders during exam Psych: oriented to all spheres, affect and mood appropriate, normal interaction, good eye contact Assessment/Plan Nonsmoker (Z78.9: Other specified health status) URI with cough and congestion (J06.9: Acute upper respiratory infection, unspecified) I am prescribing Bromfed, Medrol dosepak, and refills for albuterol inhaler for Alen. She will need to increase her water intake while on the Bromfed. These prescriptions were sent to [facility]. She can take the antibiotic from the dentist in addition to the medications that I prescribed. Alen can take Tylenol for her headaches. If things worsen, we can see her again for a follow-up. This visit was conducted via two-way, real-time interactive video communications from my office using [employer] due to the restrictions of the COVID-19 pandemic. No physical exam was conducted other than those areas of the body visible to telecommunications with the patient located at [address] [place] [address] [phone], with no one else in attendance. If it is determined that the patient should be evaluated in the clinic, the patient will be directed to the appropriate clinic or venue. The patient or their guardian verbally consented to this visit. Total time spent preparing the chart, conducting the encounter with the patient and family, and time spent documenting, reviewing, and ordering tests was 10 minutes. ATTESTATION: Documentation services were performed after patient or guardian consented to allow Tami Jaison Frederick to record this visit. NEHA residential treatment specialist and provider reviewed before signing. NEHA: [place] Follow-up No qualifying data available Problem List/Past Medical History Ongoing Allergic rhinitis Anxiety and dep (more content not included)... Normal [facility] Comment on above: Result Comment: Elec tronically Signed By: Nir DALAL, Anahy Gatica\.br\Date and Time Signed: 08/04/21 11:24 EDT Vital Signs Date Time Vital Sign Value Performing Clinician Facility 05-16-2022 16:29-0400 Body height 170.18 cm Shelia Gomez ENOCH Work Phone: [facility] Work Phone: 05-16-2022 16:29-0400 Body mass index (BMI) [Ratio] 36 kg/m2 Shelia Gomez ENOCH Work Phone: [facility] Work Phone: 05-16-2022 16:29-0400 Body surface area Derived from formula 2.1 m2 Shelia Gomez ENOCH Work Phone: [facility] Work Phone: 05-16-2022 16:29-0400 Body weight 104.24 kg Shelia Gomez ENOCH Work Phone: [facility] Work Phone: 05-16-2022 16:29-0400 Diastolic blood pressure 82 mm[Hg] Shelia Ray [employer] Work Phone: [facility] Work Phone: 05-16-2022 16:29-0400 Heart rate 82 /min Shelia Ray [employer] Work Phone: [facility] Work Phone: 05-16-2022 16:29-0400 Inhaled oxygen concentration 21 % Shelia Ray [employer] Work Phone: [facility] Work Phone: 05-16-2022 16:29-0400 Inhaled oxygen flow rate 0 L/min Shelia Ray [employer] Work Phone: [facility] Work Phone: 05-16-2022 16:29-0400 Respiratory rate 18 /min Shelia Ray [employer] Work Phone: [facility] Work Phone: 05-16-2022 16:29-0400 SaO2% (BldA) [Mass fraction] 97 % Shelia Ray [employer] Work Phone: [facility] Work Phone: 05-16-2022 16:29-0400 Systolic blood pressure 118 mm[Hg] Shelia Ray [employer] Work Phone: [facility] Work Phone: 11-10-2021 16:26-0400 Blood Pressure Location Rafaela [facility] 11-10-2021 16:26-0400 Body temperature 97.7 [degF] Rafaela [facility] 11-10-2021 16:26-0400 Diastolic blood pressure 78 mm[Hg] Rafaela [facility] 11-10-2021 16:26-0400 Heart rate 93 /min Rafaela [facility] 11-10-2021 16:26-0400 SaO2% (BldA) [Mass fraction] 98 % Rafaela [facility] 11-10-2021 16:26-0400 Systolic blood pressure 136 mm[Hg] Rafaela [facility] 10-06-2021 16:21-0400 Blood Pressure Location Rafaela [facility] 10-06-2021 16:21-0400 Body temperature 97.52 [degF] Rafaela [facility] 10-06-2021 16:21-0400 Diastolic blood pressure 66 mm[Hg] Rafaela [facility] 10-06-2021 16:21-0400 Heart rate 83 /min Rafaela [facility] 10-06-2021 16:21-0400 SaO2% (BldA) [Mass fraction] 98 % Rafaela [facility] 10-06-2021 16:21-0400 Systolic blood pressure 128 mm[Hg] Rafaela [facility] Encounters Encounter Date Encounter Type Care Provider Facility Start: 05-16-2022 End: 05-16-2022 Subsequent hospital visit by physician [facility] Start: 05-16-2022 End: 05-16-2022 [facility] visit, estab pt Maia Pageell [employer] Work Phone: [facility] Work Phone: Start: 05-16-2022 End: 05-16-2022 [facility] visit, estab pt Maia Pageell [employer] Work Phone: [facility] Work Phone: Start: 05-16-2022 End: 05-17-2022 ambulatory Gigi Carroll MD [facility] Start: 05-16-2022 End: 05-16-2022 Adult health examination Shelia Gomez ENOCH Work Phone: [facility] Work Phone: Start: 05-16-2022 End: 05-16-2022 [facility] visit new patient Shelia Gomez [employer] Work Phone: [facility] Work Phone: Start: 05-16-2022 End: 05-16-2022 General Shelia Gomez CNP Work Phone: [facility] Work Phone: Start: 01-13-2022 End: 01-14-2022 ambulatory Rafaela [facility] Facility:[facility] Start: 01-13-2022 End: 01-13-2022 Patient encounter procedure Rafaela [facility] Start: 12-13-2021 End: 12-14-2021 ambulatory Rafaela [facility]st Facility:[facility] Start: 11-11-2021 End: 11-11-[address] DOCTOR MARMOLEJO Facility:[facility] Start: 11-10-2021 End: 11-11-2021 ambulatory Rafaela [facility] Facility:[facility] Start: 11-10-2021 End: 09-07-2022 Patient encounter procedure Rafaela [facility] Start: 10-06-2021 End: 10-07-2021 ambulatory Rafaela [facility] Facility:[facility] Start: 10-06-2021 End: 10-06-2021 Patient encounter procedure Rafaela [facility] Start: 10-05-2021 ambulatory Anahy Loyola Facility:[facility] Start: 09-28-2021 ambulatory Anahy Loyola [facility] Start: 07-26-2021 End: 07-26-2021 Off-Site Anahy Loyola [facility] Start: 07-26-2021 End: 07-27-2021 ambulatory Anahy Loyola Facility: [facility] Start: 05-14-2021 End: 05-14-[address] ADAMA MYERS Facility: Procedures Date Procedure Procedure Detail Performing Clinician Start: 05-16-2022 Dilation and curettage Shelia Gomez CNP Work Phone: Start: 05-16-2022 Hemoglobin glycosylated a1c Shelia Gomez CNP Work Phone: Start: 05-16-2022 Hepatitis c antibody Shelia Gomez CNP Work Phone: Start: 05-16-2022 Most recent diastolic blood pressure < 80 mm hg Shelia Gomez CNP Work Phone: Start: 05-16-2022 Most recent hemoglobin a1c level < 7.0% Shelia Gomez CNP Work Phone: Start: 05-16-2022 Most recent systolic blood pressure <130 mm hg Shelia Gomez CNP Work Phone: Start: 05-16-2022 Psychotherapy w/patient 30 minutes Maia VALLEJO Work Phone: Start: 05-16-2022 Tonsillectomy and adenoidectomy Shelia Gomez [employer] Work Phone: Start: 05-16-2022 Viral screening Visit For: Screening Exam Infectious Diseases Viral Shelia Gomez [employer] Work Phone: Ligation of fallopia n tube Anahy Loyola Plan of Treatment Date Care Activity Detail Author Start: 09-23-2022 [facility] Start: 06-15-2022 [facility] Start: 05-16-2022 End: 05-16-2022 Patient education based on identified need BHP offered active and supportive listening, validated emotions and feelings, and processed current stressors with relapsing and changes in mood. ~BHP encouraged patient to utilize positive supports and coping skills. ~P praised patient for prioritizing their recovery. ~ [facility] Start: 05-16-2022 End: 05-16-2022 Patient education based on identified need [facility] Start: 10-04-2021 Influenza vaccination Flu vaccine (# 1) [facility] [employer] Start: 1998 DTaP/Tdap/Td vaccine (1 - Tdap) DTaP/Tdap/Td vaccine (1 - Tdap) [facility] [employer] Start: 1979 COVID-19 Vaccine (#1) COVID-19 Vacci ne (#1) [facility] End: 05-16-2022 Hepatitis C RNA, quantitative, PCR [facility] Phone: Comment on above: Once for 1 Occurrenc es starting 05/16/2022 until 05/16/2022 End: 05-16-2022 HIV RNA, Quantitative, PCR [facility] Phone: Comment on above: Once for 1 Occurrenc es starting 05/16/2022 until 05/16/2022 End: 05-16-2022 VDRL, QUANTITATIVE [facility] Phone: Comment on above: Once for 1 Occurrenc es starting 05/16/2022 until 05/16/2022 Immunizations Immunization Date Immunization Notes Care Provider Fa cility 01-18-2021 COVID-19, mRNA, LNP- S, PF, 100 mcg or 50 mcg dose Anahy Loyola [facility] Comment on above: Reason for Medicatio n: Prophylaxis 01-18-2021 influenza virus vaccine, unspecified formulation; Translations: [Fluzone PF Quadrivalent ] Anahy Loyola [facility] Comment on above: Reason for Medicatio n: Prophylaxis 03-30-2020 SARS-CoV-2 (COVID-19 ) mRNA-1273 vaccine Anahy Loyola [facility] 03-09-2020 SARS-CoV-2 (COVID-19 ) mRNA-1273 vaccine Anahy Loyola [facility] NEGATED: Highlighted row has not occurred!12-13-2021 influenza virus vaccine, unspecified formulation Rafaela [facility] Payers Date Payer Category Payer Unknown [id number] 2014 Unknown [id number] 1979 Unknown [id number] 2.16.84 [id number] 1979 Unknown [id number] 2.16.84 [id number] 1979 Unknown [id number] 2.16.8 [id number] 1979 Unknown [id number] 2.16.8 [id number] 1979 Unknown [id number] 2.16.8 [id number] 1979 Unknown [id number] 2.16.8 [id number] 1979 Unknown [id number] 2.16.8 [id number] 1979 Unknown [id number] 2.16.8 [id number] 1979 Unknown [id number] 2.16.8 [id number] 1979 Unknown [id number] 2.16.8 [id number] 1979 Unknown [id number] 2.16. [id number] 1959 Unknown [id number] 1959 Unknown [id number] Unknown [id number] 2. [id number] Social History Date Type Detail Facility Start: 07-26-2021 End: 12-13-2021 Tobacco smoking status Never smoked tobacco (finding) [facility] Tobacco smoking status Never [facility] Sex Assigned At Female [facility] Assertion Details of drug misuse behavior (observable entity) [facility] Tobacco smoking status Unknown if ever smoked [facility] Work Phone: Start: 1980 Sex Assigned At Not on file [facility] Work Phone: Assertion Gender identity finding (finding) [facility] Assertion Exposure to poll ution (event) [facility] Assertion Finding of sexua l orientation (finding) [facility] NEGATED: Highlighted row Assertion Current drinker of alcohol (finding) [facility] NEGATED: Highlighted row Assertion Exposure to pollution (event) [facility] NEGATED: Highlighted row Assertion [facility] NEGATED: Highlighted row Assertion Contraception (finding) [facility] Functional Status Date Assessment Result Facility 11-10-2021 Functional Status N/A [facility] 10-06-2021 Functional Status N/A [facility] Mental Status Date Assessment Result Facility Cognitive function Oriented to t divya, place, and person Oriented to person, time and place (finding) [facility] Work Phone: Clinical Notes 10-06-2021 to 05-20-2022 Note Date & Type Note Facility 05-20-2022 Progress note Progress note Date 05/20/2022 Chart Update Last documented on 05/22/2022; 2:17 PM, Shelia Gomez CNP; [facility] Current Medication - None Past Medical/Surgical History Reported: Medical: No previous hospitalizations. : Not planning to have a baby in the next 12 months. Diagnoses: Depression Anxiety disorder NOS Surgical: - Tonsillectomy with adenoidectomy - Dilation and curettage Allergies - No Known Allergies Family History Maternal: Systemic hypertension Respiratory disorder Depression Sororal: Depression Previous Tests - Test: HIV-1,Quant,RNA Report Date: 05/17/2022 HIV-1,RNA Not Detected Source .PLASMA - Test: Trich Vag, Molecular Report Date: 05/17/2022 Trich Vag, Molecular NEGATIVE Source: .URINE - Test: Vaginitis DNA Probe Report Date: 05/17/2022 Zelda NEGATIVE Gardnerella NEGATIVE Source .VAGINAL SWAB Trichomonas NEGATIVE - Test: HCV RNA,Quant,PCR Report Date: 05/17/2022 HCV RNA,Quant Not Detected Source .PLASMA - Test: VDRL, Quantitative Report Date: 05/17/2022 VDRL, Quantitative NONREACTIVE - Test: Chlamydia/GC DNA, Ur Report Date: 05/18/2022 Chlamydia Probe, Ur Result indeterminate. Amplification of target nucleic acid may have been Abnormal Gonorrhea Probe, Ur Result indeterminate. Amplification of target nucleic acid may have been Abnormal [id number] Evaluation note Includes: Assessments for all patient encounters Findings Encounter Date Uncomplicated cocaine abuse BH Established Patie nt with Maia Cate [employer] 05/16/2022 Last Documented On 3 5:43PM ; [facility] Assessment of body mass index Open Acces s New Patient with Shelia Gomez [employer] 05/16/2022 Last Documented On 3 5:11PM ; [facility] Diabetes Risk Test Score was three score 05/16/2022 Open Access New Patient with Shelia Gomez [employer] 05/16/2022 Last Documented On 3 5:11PM ; [facility] Exposure to STD Open Access New Patient with Chr josh Gomez [employer] 05/16/2022 Last Documented On 3 5:11PM ; [facility] Nicotine dependence Open Access New Patient with Shelia Gomez [employer] 05/16/2022 Last Documented On 3 5:11PM ; [facility] Screening for HIV Open Access New Patient with C maurice Gomez [employer] 05/16/2022 Last Documented On 3 5:11PM ; [facility] Vaping related disorder Open Access New Patient with Shelia Gomez [employer] 05/16/2022 Last Documented On 3 5:11PM ; [facility] Visit for: routine adult H&P with abnormal findings Open Access New Patient with Shelia Gomez [employer] 05/16/2022 Last Documented On 3 5:11PM ; [facility] Visit for: screening exam fo r viral diseases Open Access New Patient with Shelia Gomez [employer] 05/16/2022 Last Documented On 3 5:11PM ; [facility] Work Phone: [phone] 866-999603-13-2023 Evaluation note Includes: Assessments for all patient encounters Findings Encounter Date Uncomplicated cocaine abuse BH Established Patie nt with Maia Pageell [employer] 05/16/2022 Last Documented On 3 5:43PM ; [facility] Assessment of body mass index Open Acces s New Patient with Shelia Gomez [employer] 05/16/2022 Last Documented On 3 10:10AM ; [facility] Diabetes Risk Test Score was three score 05/16/2022 Open Access New Patient with Shelia Gomez [employer] 05/16/2022 Last Documented On 3 10:10AM ; [facility] Exposure to STD Open Access New Patient with Chr josh Gomez [employer] 05/16/2022 Last Documented On 3 10:10AM ; [facility] Nicotine dependence Open Access New Patient with Shelia Ray [employer] 05/16/2022 Last Documented On 3 10:10AM ; [facility] Screening for HIV Open Access New Patient with C hristina Ray CHAMPAGNE MAKER 05/16/2022 Last Documented On 3 10:10AM ; [facility] Vaping related disorder Open Access New Patient with Shelia Gomez CHAMPAGNE MAKER 05/16/2022 Last Documented On 3 10:10AM ; [facility] Visit for: routine adult H&P with abnormal findings Open Access New Patient with Shelia Gomez CHAMPAGNE MAKER 05/16/2022 Last Documented On 3 10:10AM ; [facility] Visit for: screening exam fo r viral diseases Open Access New Patient with Shelia Gomez CHAMPAGNE MAKER 05/16/2022 Last Documented On 3 10:10AM ; [facility] Work Phone: 1([phone]) 312-593203-13-2023 Evaluation note Includes: Assessments for all patient encounters Findings Encounter Date Uncomplicated cocaine abuse BH Sera Watts nt with Maia VALLEJO 05/16/2022 Last Documented On 3 5:43PM ; [facility] Assessment of body mass index Open Acces s New Patient with Shelia Gomez CHAMPAGNE MAKER 05/16/2022 Last Documented On 3 10:10AM ; [facility] Diabetes Risk Test Score was three score 05/16/2022 Open Access New Patient with Shelia Ray CHAMPAGNE MAKER 05/16/2022 Last Documented On 3 10:10AM ; [facility] Exposure to STD Open Access New Patient with Chr josh Ray CHAMPAGNE MAKER 05/16/2022 Last Documented On 3 10:10AM ; [facility] Nicotine dependence Open Access New Patient with Shelia Gomez CHAMPAGNE MAKER 05/16/2022 Last Documented On 3 10:10AM ; [facility] Screening for HIV Open Access New Patient with Rebekah Gomez CHAMPAGNE MAKER 05/16/2022 Last Documented On 3 10:10AM ; [facility] Vaping related disorder Open Access New Patient with Shelia Gomez CHAMPAGNE MAKER 05/16/2022 Last Documented On 3 10:10AM ; [facility] Visit for: routine adult H&P with abnormal findings Open Access New Patient with Shelia Gomez CHAMPAGNE MAKER 05/16/2022 Last Documented On 3 10:10AM ; [facility] Visit for: screening exam fo r viral diseases Open Access New Patient with Shelia Gomez CHAMPAGNE MAKER 05/16/2022 Last Documented On 3 10:10AM ; [facility] Work Phone: [phone]) 623-348303-13-2023 History general Narrative - Reported Includes: Medical History in patient's chart Description Last Updated History of anxiety disorder NOS 05/17/19 Last Documented On 3 10:10AM ; [facility] History of depression 05/16/2022 Last Documented On 3 10:10AM ; [facility] No previous hospitalizations 05/16/2022 Last Documented On 3 10:10AM ; [facility] Not planning to have a baby in the next 12 months 05/16/2022 Last Documented On 3 10:10AM ; [facility] Work Phone: 1(449) 596-617603-13-2023 History general Narrative - Reported Includes: Medical History in patient's chart Description Last Updated History of anxiety disorder NOS 05/17/19 Last Documented On 3 10:10AM ; [facility] History of depression 05/16/2022 Last Documented On 3 10:10AM ; [facility] No previous hospitalizations 05/16/2022 Last Documented On 3 10:10AM ; [facility] Not planning to have a baby in the next 12 months 05/16/2022 Last Documented On 3 10:10AM ; [facility] Work Phone: 1([phone]) 345-972103-13-2023 Progress note* Progress note Date Encounter Last Documented by 05/16/2022 BH Established Patient Last docu mented on 05/16/2022; 5:43 PM, Maia VALLEJO; [facility] Subjective BHP met with patient to discuss mood. Patient reports a history of anxiety, stating she was on prozac for almost a month but didn't like it. Patient reports she was at [facility] at that time and they were going to try Effexor on her but then she left treatment. Patient reports she relapsed on crack cocaine last December. Patient reports she used it 3 times since then and is now going to [facility]. Patient reports she wants to address her mental health there and will establish with a counselor there as well. Patient denies thoughts to harm self or others. Chief Complaint The Chief Complaint is: STD testing. History of Present Illness Alen Gomez is a 42 year old female. - Anxiety - Sleep disturbances - Energy level is fair Current Medication - None Social History Environmental Exposure: No secondhand cigarette smoke exposure. Behavioral: Not a current tobacco user. Alcohol: Not using alcohol. Drug Use: Recovering from drug addiction. - Substance Use: [facility] Allergies - No Known Allergies Physical Findings General Appearance: - Normal Appearance. Neurological: - Oriented to time, place, and person. Speech: - Is Normal. Psychiatric: - Mood is Euthymic. - Attitude Open. Affect: - Congruent with the mood. Thought Processes: - Not impaired. Thought Content: - Revealed no impairment. - No suicidal ideation. - No homicidal ideations. Assessment - F14.10 - Cocaine abuse, uncomplicated Therapy - SBIRT Screen Pos. - SBIRT Full Screen Pos. - Brief solution-focused therapy. - Referral to mental health team. - Collaborated with patient and provider: Counseling/Education BHP offered active and supportive listening, validated emotions and feelings, and processed current stressors with relapsing and changes in mood. BHP encouraged patient to utilize positive supports and coping skills. BHP praised patient for prioritizing their recovery. . Plan P to follow up with patient at next scheduled visit. . Health Reminders - Assess Tobacco Use satisfied 05/16/2022. - PHQ9 / PHQA satisfied 05/16/2022. - SBIRT satisfied 05/16/2022. User Defined 1 Has not worked without getting the payment you thought you would, has not felt pressured to do something against will to keep job, have not felt threatened in a relationship, has not been put down, humilitated, or someone has tried to control them, has not been hit, kicked, punched, or sexually forced to do something, or hurt, and not afraid of someone you have a relationship with. Domestic Violence/ Human Trafficking Screening was completed. She has not had 4 or more drinks in a day within the past year. and no misuse of prescription only drugs. Illicit drug use. PHQ-9: total score was five 05/16/2022 If you checked off problems, how difficult is it for you to do your work? + : Somewhat difficult, [PHQ-9-1] Little interest or pleasure in doing things? + 0 pt : Not at all, [PHQ-9-2] Feeling down, depressed, or hopeless? + 1 pt : Several days, [PHQ-9-3] Trouble falling or staying asleep or sleeping too much? + 1 pt : Several days, [PHQ-9-4] Feeling tired or having little energy? + 1 pt : Several days, [PHQ-9-5] Poor appetite or overeating? + 1 pt : Several days, [PHQ-9-6] Feeling bad about yourself-or that you are a failure + 1 pt : Several days, [PHQ-9-7] Trouble concentrating on things such as reading the newspaper + 0 pt : Not at all, [PHQ-9-8] Moving or speaking so slowly that other people have noticed. + 0 pt : Not at all, [PHQ-9-9] Thoughts that you would be better off or hurting yourself? + 0 pt : Not at all, Dast - 10 Score was three 05/16/2022 (DAST1) Have you used drugs other than those required for medical reasons? was one Yes , (DAST3) Are you always able to stop using drugs when you want to? was one No , (DAST4) Have you had blackouts or flashbacks as a result of drug use? was 0 No , (DAST5) Do you ever feel bad or guilty about your drug use? was 0 No , (DAST6)Do your parents/spouse ever complain about your involvement with drugs? was 0 No , (DAST7) Have you neglected your family because of your use of drugs? was 0 No , (DAST9) Have you ever experienced withdrawl symptoms when you stopped drugs? was 0 No , (DAST10) Have you had medical problems as a result of your drug use? was 0 No , (DAST8) Have you engaged in illegal activities in order to obtain drugs? was one Yes , and (DAST2) Do you abuse more than one drug at a time? was 0 No . [facility]03-13-2023 Progress note* Progress note Date Encounter Last Documented by 05/16/2022 Open Access New Patient Last doc umented on 05/18/2022; 10:10 AM, Shelia Gomez CNP; [facility] Chief Complaint The Chief Complaint is: Pt is here today to be tested for STD's, Pt along with boyfriend donate blood however was told they couldn't donate. Referred Here Not referred by urgent care clinic and not the emergency room. No prior encounters. - Data to be reviewed: no clinical lab tests History of Present Illness Alen Gomez is a 42 year old female. - Allergy list reviewed - Reviewed Medications - Medication list reviewed - Date of last menstruation 05/13/2022 - test - would not like a test Patient is a 42 year old female who presents for STI testing. Patient and her significant other donate plasma. They were recently informed that they could no longer donate due to testing positive for HCV, HIV, or syphilis - patient is unsure which. Patient and her significant other were evaluated at the health department and she was notified that her hepatitis C antibody screen was positive. Patient has never tested positive for hepatitis C in the past. Her significant other had hepatitis C and completed treatment with [facility] in January 2022. His last viral load in March 2022 was completed at [facility] and was negative. 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 Was sober for 17 months, relapsed on 12/21/22, last use was approximately 4+ weeks ago - has not used recently because he doesn't have any money to buy drugs. Has a good support system and is planning on moving into [facility] in the near future. Chlamydia in 2003, completed treatment and testing since that time has been negative. Declines routine screening labs and PAP - states she is originally from [place], [place] and will likely have completed when she returns home after sober living Current Medication - None Past Medical/Surgical History Reported: Medical: No previous hospitalizations. : Not planning to have a baby in the next 12 months. Diagnoses: Depression Anxiety disorder NOS Surgical: - Tonsillectomy with adenoidectomy - Dilation and curettage Social History Environmental Exposure: Secondhand cigarette smoke exposure. Behavioral: Not a current tobacco user. Tobacco use: Not using electronic cigarettes/vaping. Alcohol: Not using alcohol. Drug Use: Using cocaine. Sexual: Sexual orientation Straight (not lesbian or avendano) and gender identity Female. No report of control being practiced. Allergies - No Known Allergies Family History Maternal: Systemic hypertension Respiratory disorder Depression Sororal: Depression Review Of Systems Systemic: Energy level. Not feeling tired or poorly. No fever. Head: No head symptoms. Neck: No neck symptoms. Eyes: No eye symptoms. Otolaryngeal: No ear symptoms, no nasal symptoms, no nose and sinus finding, no throat symptoms, no oral cavity symptoms, and no jaw symptoms. Cardiovascular: No cardiovascular symptoms. Pulmonary: No pulmonary symptoms. Gastrointestinal: No gastrointestinal symptoms. Genitourinary: No urinary symptoms, no genital lesion, and no vaginal discharge. Musculoskeletal: No musculoskeletal symptoms. Neurological: No neurological symptoms. Psychological: No anxiety and no depression. Skin: No skin symptoms. Physical Findings - Vitals taken 05/16/2022 04:29 pm BP-Sitting L118/82 mmHg Pulse Rate-Vrkoenq72 bpm Respiration Rate18 per min Sfrnxz11 in Exocna253 lbs 12.8 oz Body Mass Index36 kg/m2 Body Surface Area2.1 m2 Oxygen Jukvewhoaz26 % O2 DeviceNone (Room Air) SkJ176 % General Appearance: - Awake. - Alert. - Well developed. - Well nourished. - In no acute distress. Head: Appearance: - Head normocephalic. Neck: Appearance: - Of the neck was normal. Palpation: - Of the neck revealed no abnormalities. Thyroid: - Is normal. Eyes: General/bilateral: Extraocular Movements: - Normal. Pupils: - PERRLA. Ears: General/bilateral: Outer Ear: - Normal. Tympanic Membrane: - Examined. - Both tympanic membranes were examined. Hearing: - No hearing abnormalities. Right Ear: - Examined. Left Ear: - Examined. Nose: General/bilateral: Discharge: - No nasal discharge. External Deformities: - No external nose deformities. Oral Cavity: - General condition was good. Pharynx: Oropharynx: - Normal. Lungs: - Respiration rhythm and depth was normal. - Respiratory movements were normal. - Clear to auscultation. Cardiovascular: Heart Rate And Rhythm: - Normal. Heart Sounds: - Normal. Abdomen: Visual Inspection: - Abdomen was normal on visual inspection. Auscultation: - Bowel sounds were normal. Palpation: - Abdominal palpation revealed no abnormalities. - Abdominal non- tender. Musculoskeletal System: General/bilateral: - Normal movement of all extremities. Neurological: - Oriented to time, place, and person. - Memory was unimpaired. Speech: - Normal. Gait And Stance: - Normal. Psychiatric: - Mood was anxious. Appearance: - Not tired. - Clothing was appropriate. - Grooming was normal. Skin: - General appearance was normal. Tests Blood Analysis: Blood Endocrine Laboratory Tests: ValueDate Blood glucose level by fingerstick Fasting 89 mg/dl05/16/2022 Blood hemoglobin A1c 4.9%05/16/2022 Laboratory-based Chemistry: Immunology Studies: HIV test was negative. Other Laboratory Tests: Screening for sexually transmitted infections was performed. Microbiology: Infectious Agent Antigen Detection: Antigen detection for hepatitis C was negative 05/16/2022. 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 Discussed benefits of flu vaccine with Patient. Vaccinations - Did not receive dose of Reported: Patient has not received the Covid Vaccine Counseling/Education - Does not want to stop using current contraception - Discussed nutritional needs teach healthy choices including fruits and vegetables - Patient education about a proper diet - Not requesting contraception - Discussed concerns about exercise: promote physical activity Plan StartCited- Contact w and exposure to infect w a sexl mode of transmiss Lab: HCV VIRAL LOAD Lab: HIV VIRAL LOAD Lab: VDRL Outside Labs/Microbiology: All 3 Urine Test Vuccfinnn-Axnkudbjs-Vdveocxgals, BD Affirm EndCited Will call with test results. Follow up as needed. Practice Management Hemoglobin A1c level < 7.0%, for blood pressure systolic < 140 mmHg systolic < 130 mmHg systolic < 130 mmHg, and diastolic < 80 mmHg diastolic < 80 mmHg. User Defined 1 No (0 points) [Pre-DM]: No, mother, father, sister, or brother does not have DM, No (0 points) [Pre-DM]: No, patient has not been diagnosed with high blood pressure, No (0 points) [Pre-DM]: Patient has not been diagnosed with gestational diabetes or given to a baby weighing 9 pounds or more, No (1 point) [Pre-DM]: No, not physically active, and Woman (0 Points) [Pre-DM]. 40 to 49 Years Old (1 Point) [Pre-DM]. [facility]03-13-2023 Reason for referral (narrative)* Date Encounter Description Provider Reason for Referral 05/16/22 Established Patient Maia VALLEJO Referral To Mental Health Team [facility] Work Phone: 1(780) 602-544309-07-2022 Hospital Discharge instructions Patient Education 11/10/2021 17:07:32 BMI for Adults BMI for Adults Body mass index (BMI) is a number that is calculated from a person's weight and height. BMI may help to estimate how much of a person's weight is composed of fat. BMI can help identify those who may be at higher risk for certain medical problems. How is BMI used with adults? BMI is used as a screening tool to identify possible weight problems. It is used to check whether aperson is obese, overweight, healthy weight, or underweight. How is BMI calculated? BMI measures your weight and compares it to your height. This can be done either in [place] or metric measurements. Note that charts are available to help you find your BMI quickly and easily without having to do these calculations yourself. To calculate your BMI in [place] measurements, your health care provider will: 1.Measure your weight in pounds (lb). 2.Multiply the number of pounds by 703. For example, for a person who weighs 180 lb, multiply that number by 703, which equals 126,540. 3.Measure your height in inches (in). Then multiply that number by itself to get a measurement called inches squared. For example, for a person who is 70 in tall, the inches squared measurement is 70 in x 70 in, which equals 4900 inches squared. 4.Divide the total from Step 2 (number of lb x 703) by the total from Step 3 (inches squared): 126,540 4900 = 25.8. This is your BMI. To calculate your BMI in metric measurements, your health care provider will: 1.Measure your weight in kilograms (kg). 2.Measure your height in meters (m). Then multiply that number by itself to get a measurement called meters squared. For example, for a person who is 1.75 m tall, the meters squared measurement is 1.75 m x 1.75 m, which is equal to 3.1 meters squared. 3.Divide the number of kilograms (your weight) by the meters squared number. In this example: 70 3.1 = 22.6. This is your BMI. How is BMI interpreted? To interpret your results, your health care provider will use BMI charts to identify whether you are underweight, normal weight, overweight, or obese. The following guidelines will be used: Underweight: BMI less than 18.5. Normal weight: BMI between 18.5 and 24.9. Overweight: BMI between 25 and 29.9. Obese: BMI of 30 and above. Please note: Weight includes both fat and muscle, so someone with a muscular build, such as an athlete, may havea BMI that is higher than 24.9. In cases like these, BMI is not an accurate measure of body fat. To determine if excess body fat is the cause of a BMI of 25 or higher, further assessments may needto be done by a health care provider. BMI is usually interpreted in the same way for men and women. Why is BMI a useful tool? BMI is useful in two ways: Identifying a weight problem that may be related to a medical condition, or that may increase the risk for medical problems. Promoting lifestyle and diet changes in order to reach a healthy weight. Summary Body mass index (BMI) is a number that is calculated from a person's weight and height. BMI may help to estimate how much of a person's weight is composed of fat. BMI can help identify those who may be at higher risk for certain medical problems. BMI can be measured using [place] measurements or metric measurements. To interpret your results, your health care provider will use BMI charts to identify whether you are underweight, normal weight, overweight, or obese. This information is not intended to replace advice given to you by your health care provider. Make sure you discuss any questions you have with your health care provider. Document Released: 11/01/2004 Document Revised: 02/02/2018 Document Reviewed: 01/03/2018 [employer] Patient Education 2020 FRS. 11/10/2021 17:07:30 Viral Respiratory Infection Test Viral Respiratory Infection Test Why am I having this test? A viral respiratory infection test is done to diagnose certain viral infections of the respiratory system. The respiratory system includes the nose, throat, windpipe, and lungs. In this test, a sample of the fluid from the back of your nose and throat, or the nasopharynx, is collected and sent to alab for testing. The results will show whether a virus is causing your infection. It will also helpyour health care provider plan for your treatment. You may be given this test if: You have symptoms of a respiratory infection, including fever, cough, or sore throat. You are at risk for a respiratory infection because of your work or travel. You have had contact with someone who is sick, or there are many people who are infected in your community. It is important to find out if you are infected, even if you do not have symptoms. You do not have to prepare for this test. What is being tested? This test checks for the presence of a virus in your respiratory system. It checks a sample for thegenetic material that makes up the virus (viral genetic material). Sometimes the test may also be used to find bacteria. What kind of sample is taken? A sample of fluid from the back of your nose and throat, also called the nasopharyngeal fluid, is collected using a swab that is attached to a metal wire or plastic tube (nasopharyngeal swab test). What happens during the test? Your health care provider will collect the sample by: Tilting your head back. Inserting the swab through one nostril, and along the bottom of your nose, until it reaches the back of your nose (about 2 inches). Gently rolling the swab to collect nasopharyngeal fluid. If the swab cannot be easily passed through your nose, your health care provider may collect the nasopharyngeal fluid by: Inserting the swab through your mouth to the back of your throat. Inserting the swab custodial inside your nose, to the middle front of the nose. The collected sample will be placed in a culture tube, labeled with your name, and sent to the lab for processing. How are the results reported? Your test results will be reported as either positive or negative. Sometimes, the test results may report that a condition is present when it is not present (false-positive result). This can happen if genetic material remains from a virus. Sometimes, the test results may report that a condition is not present when it is present (false-negative result). This can happen if the sample was not collected properly or if there is not enough viral genetic material for the test to detect. What do the results mean? A positive result means that viral genetic material was found. This also means that you likely haverespiratory infection from a virus. A negative result means that no viral genetic material was found. This also means that you likely do not have a respiratory infection from a virus. If you have a positive result, this test may identify the type of virus or bacteria that you have. The test may indicate whether your infection is from: Flu (influenza) viruses. Coronaviruses. Rhinoviruses. Adenoviruses. Respiratory syncytial virus (RSV). Bacteria such as pertussis (also called whooping cough), chlamydophila, or mycoplasma. Talk with your health care provider about what your results mean. Questions to ask your health care provider Ask your health care provider, or the department that is doing the test: When will my results be ready? How will I get my results? What are my treatment options? What other tests do I need? What are my next steps? Summary A viral respiratory infection test is done to diagnose certain viral infections in the respiratory system. This test involves collecting a sample of the fluid from the back of your nose and throat and testing it in a lab for the presence of the virus. The sample is collected using a swab attached to a metal wire or plastic tube (nasopharyngeal swab test). A positive result means that it is likely that you have a viral respiratory infection. A negative result means that it is likely that you do not have a viral respiratory infection. Talk with your health care provider about what your results mean. This information is not intended to replace advice given to you by your health care provider. Make sure you discuss any questions you have with your health care provider. Document Released: 08/20/2019 Document Revised: 09/17/2019 Document Reviewed: 08/20/2019 [employer] Patient Education 2020 FRS. 11/10/2021 17:07:26 Health Maintenance, Female Health Maintenance, Female Adopting a healthy lifestyle and getting preventive care are important in promoting health and wellness. Ask your health care provider about: The right schedule for you to have regular tests and exams. Things you can do on your own to prevent diseases and keep yourself healthy. What should I know about diet, weight, and exercise? Eat a healthy diet Eat a diet that includes plenty of vegetables, fruits, low-fat dairy products, and lean protein. Do not eat a lot of foods that are high in solid fats, added sugars, or sodium. Maintain a healthy weight Body mass index (BMI) is used to identify weight problems. It estimates body fat based on height and weight. Your health care provider can help determine your BMI and help you achieve or maintain a healthy weight. Get regular exercise Get regular exercise. This is one of the most important things you can do for your health. Most adults should: Exercise for at least 150 minutes each week. The exercise should increase your heart rate and make you sweat (moderate-intensity exercise). Do strengthening exercises at least twice a week. This is in addition to the moderate-intensity exercise. Spend less time sitting. Even light physical activity can be beneficial. Watch cholesterol and blood lipids Have your blood tested for lipids and cholesterol at 20 years of age, then have this test every 5 years. Have your cholesterol levels checked more often if: Your lipid or cholesterol levels are high. You are older than 40 years of age. You are at high risk for heart disease. What should I know about cancer screening? Depending on your health history and family history, you may need to have cancer screening at various ages. This may include screening for: Breast cancer. Cervical cancer. Colorectal cancer. Skin cancer. Lung cancer. What should I know about heart disease, diabetes, and high blood pressure? Blood pressure and heart disease High blood pressure causes heart disease and increases the risk of stroke. This is more likely to develop in people who have high blood pressure readings, are of descent, or are overweight. Have your blood pressure checked: ?Every 3 5 years if you are 18 39 years of age. ?Every year if you are 40 years old or older. Diabetes Have regular diabetes screenings. This checks your fasting blood sugar level. Have the screening done: Once every three years after age 40 if you are at a normal weight and have a low risk for diabetes. More often and at a younger age if you are overweight or have a high risk for diabetes. What should I know about preventing infection? Hepatitis B If you have a higher risk for hepatitis B, you should be screened for this virus. Talk with your health care provider to find out if you are at risk for hepatitis B infection. Hepatitis C Testing is recommended for: Everyone born from 1945 through 1965. Anyone with known risk factors for hepatitis C. Sexually transmitted infections (STIs) Get screened for STIs, including gonorrhea and chlamydia, if: ?You are sexually active and are younger than 24 years of age. ?You are older than 24 years of age and your health care provider tells you that you are at risk for this type of infection. ?Your sexual activity has changed since you were last screened, and you are at increased risk for chlamydia or gonorrhea. Ask your health care provider if you are at risk. Ask your health care provider about whether you are at high risk for HIV. Your health care providermay recommend a prescription medicine to help prevent HIV infection. If you choose to take medicineto prevent HIV, you should first get tested for HIV. You should then be tested every 3 months for as long as you are taking the medicine. If you are about to stop having your period (premenopausal) and you may become , seek counseling before you get . Take 400 to 800 micrograms (mcg) of folic acid every day if you become . Ask for control (contraception) if you want to prevent . Osteoporosis and menopause Osteoporosis is a disease in which the bones lose minerals and strength with aging. This can resultin bone fractures. If you are 65 years old or older, or if you are at risk for osteoporosis and fractures, ask your health care provider if you should: Be screened for bone loss. Take a calcium or vitamin D supplement to lower your risk of fractures. Be given hormone replacement therapy (HRT) to treat symptoms of menopause. Follow these instructions at home: Lifestyle Do not use any products that contain nicotine or tobacco, such as cigarettes, e- cigarettes, and chewing tobacco. If you need help quitting, ask your health care provider. Do not use street drugs. Do not share needles. Ask your health care provider for help if you need support or information about quitting drugs. Alcohol use Do not drink alcohol if: ?Your health care provider tells you not to drink. ?You are , may be , or are planning to become . If you drink alcohol: ?Limit how much you use to 0 1 drink a day. ?Limit intake if you are . Be aware of how much alcohol is in your drink. In the [place] one drink equals one 12 oz bottle of beer (355 mL), one 5 oz glass of wine (148 mL), or one 1 oz glass of hard liquor (44 mL). General instructions Schedule regular health, dental, and eye exams. Stay current with your vaccines. Tell your health care provider if: ?You often feel depressed. ?You have ever been abused or do not feel safe at home. Summary Adopting a healthy lifestyle and getting preventive care are important in promoting health and wellness. Follow your health care provider's instructions about healthy diet, exercising, and getting tested or screened for diseases. Follow your health care provider's instructions on monitoring your cholesterol and blood pressure. This information is not intended to replace advice given to you by your health care provider. Make sure you discuss any questions you have with your health care provider. Document Released: 09/05/2011 Document Revised: 02/13/2019 Document Reviewed: 02/13/2019 [employer] Patient Education 2020 FRS. Follow Up Care 10/06/2021 16:43:43 With:Rafaela West CNP Address: [address] [place] [address] [place] [address]- [phone] When:1 month [facility] 08-03-2022 Hospital Discharge instructions Patient Education 10/06/2021 16:45:03 Obesity, Adult Obesity, Adult Obesity is the condition of having too much total body fat. Being overweight or obese means that your weight is greater than what is considered healthy for your body size. Obesity is determined by a measurement called BMI. BMI is an estimate of body fat and is calculated from height and weight. Foradults, a BMI of 30 or higher is considered obese. Obesity can lead to other health concerns and major illnesses, including: Stroke. Coronary artery disease (CAD). Type 2 diabetes. Some types of cancer, including cancers of the colon, breast, uterus, and gallbladder. Osteoarthritis. High blood pressure (hypertension). High cholesterol. Sleep apnea. Gallbladder stones. Infertility problems. What are the causes? Common causes of this condition include: Eating daily meals that are high in calories, sugar, and fat. Being born with genes that may make you more likely to become obese. Having a medical condition that causes obesity, including: ?Hypothyroidism. ?Polycystic ovarian syndrome (PCOS). ?Binge-eating disorder. ?[place] syndrome. Taking certain medicines, such as steroids, antidepressants, and seizure medicines. Not being physically active (sedentary lifestyle). Not getting enough sleep. Drinking high amounts of sugar-sweetened beverages, such as soft drinks. What increases the risk? The following factors may make you more likely to develop this condition: Having a family history of obesity. Being a woman of descent. Being a man of descent. Living in an area with limited access to: ?[place], recreation centers, or sidewalks. ?Healthy food choices, such as grocery stores and [employer] markets. What are the signs or symptoms? The main sign of this condition is having too much body fat. How is this diagnosed? This condition is diagnosed based on: Your BMI. If you are an adult with a BMI of 30 or higher, you are considered obese. Your waist circumference. This measures the distance around your waistline. Your skinfold thickness. Your health care provider may gently pinch a fold of your skin and measureit. You may have other tests to check for underlying conditions. How is this treated? Treatment for this condition often includes changing your lifestyle. Treatment may include some or all of the following: Dietary changes. This may include developing a healthy meal plan. Regular physical activity. This may include activity that causes your heart to beat faster (aerobicexercise) and strength training. Work with your health care provider to design an exercise program that works for you. Medicine to help you lose weight if you are unable to lose 1 pound a week after 6 weeks of healthy eating and more physical activity. Treating conditions that cause the obesity (underlying conditions). Surgery. Surgical options may include gastric banding and gastric bypass. Surgery may be done if: ?Other treatments have not helped to improve your condition. ?You have a BMI of 40 or higher. ?You have life-threatening health problems related to obesity. Follow these instructions at home: Eating and drinking Follow recommendations from your health care provider about what you eat and drink. Your health care provider may advise you to: ?Limit fast food, sweets, and processed snack foods. ?Choose low-fat options, such as low-fat milk instead of whole milk. ?Eat 5 or more servings of fruits or vegetables every day. ?Eat at home more often. This gives you more control over what you eat. ?Choose healthy foods when you eat out. ?Learn to read food labels. This will help you understand how much food is considered 1 serving. ?Learn what a healthy serving size is. ?Keep low-fat snacks available. ?Limit sugary drinks, such as soda, fruit juice, sweetened iced tea, and flavored milk. Drink enough water to keep your urine pale yellow. Do not follow a fad diet. Fad diets can be unhealthy and even dangerous. Physical activity Exercise regularly, as told by your health care provider. ?Most adults should get up to 150 minutes of moderate-intensity exercise every week. ?Ask your health care provider what types of exercise are safe for you and how often you should exercise. Warm up and stretch before being active. Cool down and stretch after being active. Rest between periods of activity. Lifestyle Work with your health care provider and a dietitian to set a weight-loss goal that is healthy and reasonable for you. Limit your screen time. Find ways to reward yourself that do not involve food. Do not drink alcohol if: ?Your health care provider tells you not to drink. ?You are , may be , or are planning to become . If you drink alcohol: ?Limit how much you use to: ?0 1 drink a day for women. ?0 2 drinks a day for men. ?Be aware of how much alcohol is in your drink. In the [place] one drink equals one 12 oz bottle of beer (355 mL), one 5 oz glass of wine (148 mL), or one 1 oz glass of hard liquor (44 mL). General instructions Keep a weight-loss journal to keep track of the food you eat and how much exercise you get. Take wjoc-ogp-fmlqoip and prescription medicines only as told by your health care provider. Take vitamins and supplements only as told by your health care provider. Consider joining a support group. Your health care provider may be able to recommend a support group. Keep all follow-up visits as told by your health care provider. This is important. Contact a health care provider if: You are unable to meet your weight loss goal after 6 weeks of dietary and lifestyle changes. Get help right away if you are having: Trouble breathing. Suicidal thoughts or behaviors. Summary Obesity is the condition of having too much total body fat. Being overweight or obese means that your weight is greater than what is considered healthy for your body size. Work with your health care provider and a dietitian to set a weight-loss goal that is healthy and reasonable for you. Exercise regularly, as told by your health care provider. Ask your health care provider what types of exercise are safe for you and how often you should exercise. This information is not intended to replace advice given to you by your health care provider. Make sure you discuss any questions you have with your health care provider. Document Released: 03/30/2005 Document Revised: 10/25/2018 Document Reviewed: 10/25/2018 [employer] Patient Education 2020 [employer] 10/06/2021 16:44:57 Exercising to Stay Healthy Exercising to Stay Healthy To become healthy and stay healthy, it is recommended that you do moderate- intensity and vigorous-intensity exercise. You can tell that you are exercising at a moderate intensity if your heart startsbeating faster and you start breathing faster but can still hold a conversation. You can tell that you are exercising at a vigorous intensity if you are breathing much harder and faster and cannot hold a conversation while exercising. Exercising regularly is important. It has many health benefits, such as: Improving overall fitness, flexibility, and endurance. Increasing bone density. Helping with weight control. Decreasing body fat. Increasing muscle strength. Reducing stress and tension. Improving overall health. How often should I exercise? Choose an activity that you enjoy, and set realistic goals. Your health care provider can help you make an activity plan that works for you. Exercise regularly as told by your health care provider. This may include: Doing strength training two times a week, such as: ?Lifting weights. ?Using resistance bands. ?Push-ups. ?Sit-ups. ?Yoga. Doing a certain intensity of exercise for a given amount of time. Choose from these options: ?A total of 150 minutes of moderate-intensity exercise every week. ?A total of 75 minutes of vigorous-intensity exercise every week. ?A mix of moderate-intensity and vigorous-intensity exercise every week. Children, women, people who have not exercised regularly, people who are overweight, and older adults may need to talk with a health care provider about what activities are safe to do. If you have a medical condition, be sure to talk with your health care provider before you start a new exercise program. What are some exercise ideas? Moderate-intensity exercise ideas include: Walking 1 mile (1.6 km) in about 15 minutes. Biking. Hiking. Golfing. Dancing. Water aerobics. Vigorous-intensity exercise ideas include: Walking 4.5 miles (7.2 km) or more in about 1 hour. Jogging or running 5 miles (8 km) in about 1 hour. Biking 10 miles (16.1 km) or more in about 1 hour. Lap swimming. Roller-skating or in-line skating. Cross-country skiing. Vigorous competitive sports, such as football, basketball, and soccer. Jumping rope. Aerobic dancing. What are some everyday activities that can help me to get exercise? Yard work, such as: ?Pushing a home therapy teacher. ?Raking and bagging leaves. Washing your car. Pushing a stroller. Shoveling snow. Gardening. Washing windows or floors. How can I be more active in my day-to-day activities? Use stairs instead of an elevator. Take a walk during your lunch break. If you drive, park your car farther away from your work or school. If you take public transportation, get off one stop early and walk the rest of the way. Stand up or walk around during all of your indoor phone calls. Get up, stretch, and walk around every 30 minutes throughout the day. Enjoy exercise with a friend. Support to continue exercising will help you keep a regular routine of activity. What guidelines can I follow while exercising? Before you start a new exercise program, talk with your health care provider. Do not exercise so much that you hurt yourself, feel dizzy, or get very short of breath. Wear comfortable clothes and wear shoes with good support. Drink plenty of water while you exercise to prevent dehydration or heat stroke. Work out until your breathing and your heartbeat get faster. Where to find more information [place] Department of Health and Human Services: www.hhs.gov Centers for Disease Control and Prevention (CDC): www.cdc.gov Summary Exercising regularly is important. It will improve your overall fitness, flexibility, and endurance. Regular exercise also will improve your overall health. It can help you control your weight, reducestress, and improve your bone density. Do not exercise so much that you hurt yourself, feel dizzy, or get very short of breath. Before you start a new exercise program, talk with your health care provider. This information is not intended to replace advice given to you by your health care provider. Make sure you discuss any questions you have with your health care provider. Document Released: 03/25/2011 Document Revised: 02/02/2018 Document Reviewed: 01/11/2018 [employer] Patient Education 2020 FRS. 10/06/2021 16:44:55 Healthy Eating Healthy Eating Following a healthy eating pattern may help you to achieve and maintain a healthy body weight, reduce the risk of chronic disease, and live a long and productive life. It is important to follow a healthy eating pattern at an appropriate calorie level for your body. Your nutritional needs should be met primarily through food by choosing a variety of nutrient-rich foods. What are tips for following this plan? Reading food labels Read labels and choose the following: ?Reduced or low sodium. ?Juices with 100% fruit juice. ?Foods with low saturated fats and high polyunsaturated and monounsaturated fats. ?Foods with whole grains, such as whole wheat, cracked wheat, brown rice, and wild rice. ?Whole grains that are fortified with folic acid. This is recommended for women who are orwho want to become . Read labels and avoid the following: ?Foods with a lot of added sugars. These include foods that contain brown sugar, corn sweetener, corn syrup, dextrose, fructose, glucose, high-fructose corn syrup, honey, invert sugar, lactose, malt syrup, maltose, molasses, raw sugar, sucrose, trehalose, or turbinado sugar. ?Do not eat more than the following amounts of added sugar per day: 6 teaspoons (25 g) for women. 9 teaspoons (38 g) for men. ?Foods that contain processed or refined starches and grains. ?Refined grain products, such as white flour, degermed cornmeal, white bread, and white rice. Shopping Choose nutrient-rich snacks, such as vegetables, whole fruits, and nuts. Avoid high-calorie and high-sugar snacks, such as potato chips, fruit snacks, and candy. Use oil-based dressings and spreads on foods instead of solid fats such as butter, stick margarine,or cream cheese. Limit pre-made sauces, mixes, and instant products such as flavored rice, instant noodles, and ready-made pasta. Try more plant-protein sources, such as tofu, tempeh, black beans, edamame, lentils, nuts, and seeds. Explore eating plans such as the Mediterranean diet or vegetarian diet. Cooking Use oil to saut or stir-spivey foods instead of solid fats such as butter, stick margarine, or lard. Try baking, boiling, grilling, or broiling instead of frying. Remove the fatty part of meats before cooking. Steam vegetables in water or broth. Meal planning At meals, imagine dividing your plate into fourths: ?One-half of your plate is fruits and vegetables. ?One-fourth of your plate is whole grains. ?One-fourth of your plate is protein, especially lean meats, poultry, eggs, tofu, beans, or nuts. Include low-fat dairy as part of your daily diet. Lifestyle Choose healthy options in all settings, including home, work, school, restaurants, or stores. Prepare your food safely: ?Wash your hands after handling raw meats. ?Keep food preparation surfaces clean by regularly washing with hot, soapy water. ?Keep raw meats separate from pjxgd-ml-whg foods, such as fruits and vegetables. ?manager van, meat, poultry, and eggs to the recommended internal temperature. ?Store foods at safe temperatures. In general: ?Keep cold foods at 40 F (4.4 C) or below. ?Keep hot foods at 140 F (60 C) or above. ?Keep your freezer at 0 F (-17.8 C) or below. ?Foods are no longer safe to eat when they have been between the temperatures of 40 140 F (4.4 60 C) for more than 2 hours. What foods should I eat? Fruits Aim to eat 2 cup-equivalents of fresh, canned (in natural juice), or frozen fruits each day. Examples of 1 cup-equivalent of fruit include 1 small apple, 8 large strawberries, 1 cup canned fruit, cupdried fruit, or 1 cup 100% juice. Vegetables Aim to eat 2 3 cup-equivalents of fresh and frozen vegetables each day, including different varieties and colors. Examples of 1 cup-equivalent of vegetables include 2 medium carrots, 2 cups raw, leafy greens, 1 cup chopped vegetable (raw or cooked), or 1 medium baked potato. Grains Aim to eat 6 ounce-equivalents of whole grains each day. Examples of 1 ounce- equivalent of grains include 1 slice of bread, 1 cup uqvsy-yw-bhv cereal, 3 cups popcorn, or cup cooked rice, pasta, or cereal. Meats and other proteins Aim to eat 5 6 ounce-equivalents of protein each day. Examples of 1 ounce- equivalent of protein include 1 egg, 1/2 cup nuts or seeds, or 1 tablespoon (16 g) peanut butter. A cut of meat or fish that is the size of a deck of cards is about 3 4 ounce-equivalents. Of the protein you eat each week, try to have at least 8 ounces come from seafood. This includes salmon, trout, weber, and anchovies. Dairy Aim to eat 3 cup-equivalents of fat-free or low-fat dairy each day. Examples of 1 cup-equivalent ofdairy include 1 cup (240 mL) milk, 8 ounces (250 g) yogurt, 1 ounces (44 g) natural cheese, or 1 cup (240 mL) fortified soy milk. Fats and oils Aim for about 5 teaspoons (21 g) per day. Choose monounsaturated fats, such as canola and olive oils, avocados, peanut butter, and most nuts, or polyunsaturated fats, such as sunflower, corn, and soybean oils, walnuts, pine nuts, sesame seeds, sunflower seeds, and flaxseed. Beverages Aim for six 8-oz glasses of water per day. Limit coffee to three to five 8-oz cups per day. Limit caffeinated beverages that have added calories, such as soda and energy drinks. Limit alcohol intake to no more than 1 drink a day for non women and 2 drinks a day for men. One drink equals 12 oz of beer (355 mL), 5 oz of wine (148 mL), or 1 oz of hard liquor (44 mL). Seasoning and other foods Avoid adding excess amounts of salt to your foods. Try flavoring foods with herbs and spices instead of salt. Avoid adding sugar to foods. Try using oil-based dressings, sauces, and spreads instead of solid fats. This information is based on general [place] nutrition guidelines. For more information, visit choosemyplate.gov. Exact amounts may vary based on your nutrition needs. Summary A healthy eating plan may help you to maintain a healthy weight, reduce the risk of chronic diseases, and stay active throughout your life. Plan your meals. Make sure you eat the right portions of a variety of nutrient- rich foods. Try baking, boiling, grilling, or broiling instead of frying. Choose healthy options in all settings, including home, work, school, restaurants, or stores. This information is not intended to replace advice given to you by your health care provider. Make sure you discuss any questions you have with your health care provider. Document Released: 06/04/2018 Document Revised: 06/04/2018 Document Reviewed: 06/04/2018 [employer] Patient Education 2020 [employer] 10/06/2021 16:44:54 BMI for Adults BMI for Adults Body mass index (BMI) is a number that is calculated from a person's weight and height. BMI may help to estimate how much of a person's weight is composed of fat. BMI can help identify those who may be at higher risk for certain medical problems. How is BMI used with adults? BMI is used as a screening tool to identify possible weight problems. It is used to check whether aperson is obese, overweight, healthy weight, or underweight. How is BMI calculated? BMI measures your weight and compares it to your height. This can be done either in [place] ([place] or metric measurements. Note that charts are available to help you find your BMI quickly and easily without having to do these calculations yourself. To calculate your BMI in [place] measurements, your health care provider will: 1.Measure your weight in pounds (lb). 2.Multiply the number of pounds by 703. For example, for a person who weighs 180 lb, multiply that number by 703, which equals 126,540. 3.Measure your height in inches (in). Then multiply that number by itself to get a measurement called inches squared. For example, for a person who is 70 in tall, the inches squared measurement is 70 in x 70 in, which equals 4900 inches squared. 4.Divide the total from Step 2 (number of lb x 703) by the total from Step 3 (inches squared): 126,540 4900 = 25.8. This is your BMI. To calculate your BMI in metric measurements, your health care provider will: 1.Measure your weight in kilograms (kg). 2.Measure your height in meters (m). Then multiply that number by itself to get a measurement called meters squared. For example, for a person who is 1.75 m tall, the meters squared measurement is 1.75 m x 1.75 m, which is equal to 3.1 meters squared. 3.Divide the number of kilograms (your weight) by the meters squared number. In this example: 70 3.1 = 22.6. This is your BMI. How is BMI interpreted? To interpret your results, your health care provider will use BMI charts to identify whether you are underweight, normal weight, overweight, or obese. The following guidelines will be used: Underweight: BMI less than 18.5. Normal weight: BMI between 18.5 and 24.9. Overweight: BMI between 25 and 29.9. Obese: BMI of 30 and above. Please note: Weight includes both fat and muscle, so someone with a muscular build, such as an athlete, may havea BMI that is higher than 24.9. In cases like these, BMI is not an accurate measure of body fat. To determine if excess body fat is the cause of a BMI of 25 or higher, further assessments may needto be done by a health care provider. BMI is usually interpreted in the same way for men and women. Why is BMI a useful tool? BMI is useful in two ways: Identifying a weight problem that may be related to a medical condition, or that may increase the risk for medical problems. Promoting lifestyle and diet changes in order to reach a healthy weight. Summary Body mass index (BMI) is a number that is calculated from a person's weight and height. BMI may help to estimate how much of a person's weight is composed of fat. BMI can help identify those who may be at higher risk for certain medical problems. BMI can be measured using [place] measurements or metric measurements. To interpret your results, your health care provider will use BMI charts to identify whether you are underweight, normal weight, overweight, or obese. This information is not intended to replace advice given to you by your health care provider. Make sure you discuss any questions you have with your health care provider. Document Released: 11/01/2004 Document Revised: 02/02/2018 Document Reviewed: 01/03/2018 [employer] Patient Education 2020 FRS. 10/06/2021 16:44:51 Health Maintenance, Female Health Maintenance, Female Adopting a healthy lifestyle and getting preventive care are important in promoting health and wellness. Ask your health care provider about: The right schedule for you to have regular tests and exams. Things you can do on your own to prevent diseases and keep yourself healthy. What should I know about diet, weight, and exercise? Eat a healthy diet Eat a diet that includes plenty of vegetables, fruits, low-fat dairy products, and lean protein. Do not eat a lot of foods that are high in solid fats, added sugars, or sodium. Maintain a healthy weight Body mass index (BMI) is used to identify weight problems. It estimates body fat based on height and weight. Your health care provider can help determine your BMI and help you achieve or maintain a healthy weight. Get regular exercise Get regular exercise. This is one of the most important things you can do for your health. Most adults should: Exercise for at least 150 minutes each week. The exercise should increase your heart rate and make you sweat (moderate-intensity exercise). Do strengthening exercises at least twice a week. This is in addition to the moderate-intensity exercise. Spend less time sitting. Even light physical activity can be beneficial. Watch cholesterol and blood lipids Have your blood tested for lipids and cholesterol at 20 years of age, then have this test every 5 years. Have your cholesterol levels checked more often if: Your lipid or cholesterol levels are high. You are older than 40 years of age. You are at high risk for heart disease. What should I know about cancer screening? Depending on your health history and family history, you may need to have cancer screening at various ages. This may include screening for: Breast cancer. Cervical cancer. Colorectal cancer. Skin cancer. Lung cancer. What should I know about heart disease, diabetes, and high blood pressure? Blood pressure and heart disease High blood pressure causes heart disease and increases the risk of stroke. This is more likely to develop in people who have high blood pressure readings, are of descent, or are overweight. Have your blood pressure checked: ?Every 3 5 years if you are 18 39 years of age. ?Every year if you are 40 years old or older. Diabetes Have regular diabetes screenings. This checks your fasting blood sugar level. Have the screening done: Once every three years after age 40 if you are at a normal weight and have a low risk for diabetes. More often and at a younger age if you are overweight or have a high risk for diabetes. What should I know about preventing infection? Hepatitis B If you have a higher risk for hepatitis B, you should be screened for this virus. Talk with your health care provider to find out if you are at risk for hepatitis B infection. Hepatitis C Testing is recommended for: Everyone born from 1945 through 1965. Anyone with known risk factors for hepatitis C. Sexually transmitted infections (STIs) Get screened for STIs, including gonorrhea and chlamydia, if: ?You are sexually active and are younger than 24 years of age. ?You are older than 24 years of age and your health care provider tells you that you are at risk for this type of infection. ?Your sexual activity has changed since you were last screened, and you are at increased risk for chlamydia or gonorrhea. Ask your health care provider if you are at risk. Ask your health care provider about whether you are at high risk for HIV. Your health care providermay recommend a prescription medicine to help prevent HIV infection. If you choose to take medicineto prevent HIV, you should first get tested for HIV. You should then be tested every 3 months for as long as you are taking the medicine. If you are about to stop having your period (premenopausal) and you may become , seek counseling before you get . Take 400 to 800 micrograms (mcg) of folic acid every day if you become . Ask for control (contraception) if you want to prevent . Osteoporosis and menopause Osteoporosis is a disease in which the bones lose minerals and strength with aging. This can resultin bone fractures. If you are 65 years old or older, or if you are at risk for osteoporosis and fractures, ask your health care provider if you should: Be screened for bone loss. Take a calcium or vitamin D supplement to lower your risk of fractures. Be given hormone replacement therapy (HRT) to treat symptoms of menopause. Follow these instructions at home: Lifestyle Do not use any products that contain nicotine or tobacco, such as cigarettes, e- cigarettes, and chewing tobacco. If you need help quitting, ask your health care provider. Do not use street drugs. Do not share needles. Ask your health care provider for help if you need support or information about quitting drugs. Alcohol use Do not drink alcohol if: ?Your health care provider tells you not to drink. ?You are , may be , or are planning to become . If you drink alcohol: ?Limit how much you use to 0 1 drink a day. ?Limit intake if you are . Be aware of how much alcohol is in your drink. In the [place] one drink equals one 12 oz bottle of beer (355 mL), one 5 oz glass of wine (148 mL), or one 1 oz glass of hard liquor (44 mL). General instructions Schedule regular health, dental, and eye exams. Stay current with your vaccines. Tell your health care provider if: ?You often feel depressed. ?You have ever been abused or do not feel safe at home. Summary Adopting a healthy lifestyle and getting preventive care are important in promoting health and wellness. Follow your health care provider's instructions about healthy diet, exercising, and getting tested or screened for diseases. Follow your health care provider's instructions on monitoring your cholesterol and blood pressure. This information is not intended to replace advice given to you by your health care provider. Make sure you discuss any questions you have with your health care provider. Document Released: 09/05/2011 Document Revised: 02/13/2019 Document Reviewed: 02/13/2019 [employer] Patient Education [employer]. Follow Up Care 09/28/2021 15:02:14 With:Rafaela West CNP Address: [address] [place] [address] [place] [address]- [phone] When:1 month [facility] Evaluation + Plan note No data available for this section [facility] Evaluation + Plan note Future Appointments Appointment Date:11/10/2021 04:20:00 PM Scheduled Provider:Rafaela West CNP Location:[facility] Appointment Type:[facility] Evaluation + Plan note Future Appointments Appointment Date:12/13/2021 05:00:00 PM Scheduled Provider:Rafaela West CNP Location:[facility] Appointment Type:[facility] History general Narrative - Reported Includes: Medical History in patient's chart No Medical History RecordedHealth [facility] Work Phone: History of Present illness Narrative History of Present Illness not supported for this document type No History of Present Illness RecordedHealth [facility] Work Phone: Hospital Discharge instructions No data available for this section [facility] Instructions Includes: Instructions for all patient encounters Education and Decision Aids were provided during visit for: BHP offered active and suppo rtive listening, validated emotions and feelings, and processed current stressors with relapsing and changes in mood. ~BHP encouraged patient to utilize positive supports and coping skills. ~BHP praised patient for prioritizing their recovery. ~ Last Documented On 3 5:43PM ; [facility] Discussed nutritional needs teach healthy choices including fruits and vegetables Last Documented On 3 4:35PM ; [facility] Patient education about a pr oper diet Last Documented On 3 4:35PM ; [facility] Discussed concerns about exe rcise : promote physical activity Last Documented On 3 4:35PM ; [facility] Not requesting contraception Last Documented On 3 4:35PM ; [facility] Work Phone: Instructions Includes: Instructions for all patient encounters Education and Decision Aids were provided during visit for: BHP offered active and suppo rtive listening, validated emotions and feelings, and processed current stressors with relapsing and changes in mood. ~BHP encouraged patient to utilize positive supports and coping skills. ~BHP praised patient for prioritizing their recovery. ~ Last Documented On 3 5:43PM ; [facility] Discussed nutritional needs teach healthy choices including fruits and vegetables Last Documented On 3 4:35PM ; [facility] Patient education about a pr oper diet Last Documented On 3 4:35PM ; [facility] Discussed concerns about exe rcise : promote physical activity Last Documented On 3 4:35PM ; [facility] Not requesting contraception Last Documented On 3 4:35PM ; [facility] Work Phone: Instructions Includes: Instructions for all patient encounters Education and Decision Aids were provided during visit for: BHP offered active and suppo rtive listening, validated emotions and feelings, and processed current stressors with relapsing and changes in mood. ~BHP encouraged patient to utilize positive supports and coping skills. ~BHP praised patient for prioritizing their recovery. ~ Last Documented On 3 5:43PM ; [facility] Discussed nutritional needs teach healthy choices including fruits and vegetables Last Documented On 3 4:35PM ; [facility] Patient education about a pr oper diet Last Documented On 3 4:35PM ; [facility] Discussed concerns about exe rcise : promote physical activity Last Documented On 3 4:35PM ; [facility] Not requesting contraception Last Documented On 3 4:35PM ; [facility] Work Phone: Patient problem outcome Narrative Includes: Evaluations & Outcomes for active Goals No [facility] Work Phone: Progress note No data available for this section [facility] Review of systems Narrative - Reported Review of Systems not supported for this document type No [facility] of [facility] Work Phone: Summary Purpose Family History Description Last Updated Maternal history of depression 3 Last Documented On 3 10:10AM ; [facility] Sor[place] history of depression 05/16/2022 [place] history of psychiatric disorders 05/16/2022 Maternal history of psychiatric disorder s 05/16/2022 Maternal history of respiratory disorder 05/16/2022 Maternal history of systemic hypertensio n 05/16/2022 Description Last Updated Maternal history of depression 3 Last Documented On 3 10:10AM ; [facility] Sororal history of depression 05/16/2022 Sor[place] history of psychiatric disorders 05/16/2022 Maternal history of psychiatric disorder s 05/16/2022 Maternal history of respiratory disorder 05/16/2022 Maternal history of systemic hypertensio n 05/16/2022 Advance Directives No Advanced Directives Records FoundNo Advanced Directives Records Found Includes: Current Advance Directives No Advance Directives RecordedNo Advanced Directives Records Found Includes: Current Advance Directives No Advance Directives RecordedNo Advanced Directives Records Found Includes: Current Advance Directives No Advance Directives Recorded Physical Exam Physical Exam not supported for this document type No Physical Exam Recorded Physical Exam not supported for this document type No Physical Exam Recorded Physical Exam not supported for this document type No Physical Exam Recorded Additional Source Comments Care Team (unrecognized sect ion and content) Personnel Name: Rafaela West CNP Address: [address] [place] [address], [place] [address] Personnel Name: Rafaela West CNP Address: [address], [place] [address] Personnel Name: Rafaela West CNP Address: Address: [place] [address] INFORMATION SOURCE (unrecogn ized section and content) DATE CREATED AUTHOR 11/15/2021 [facility] DATE CREATED AUTHOR AUTHOR'S ORGANIZ ATION 01/14/2022 [facility] DATE CREATED AUTHOR AUTHOR'S ORGANIZ ATION 05/17/2022 [facility] DATE CREATED AUTHOR AUTHOR'S ORGANIZ ATION 05/19/2022 [facility] FOR RECORDS PERTAINING TO PATIENTS WHO ARE OR HAVE BEEN ENROLLED IN A CHEMICAL DEPENDENCY/SUBSTANCEABUSE PROGRAM, SOME INFORMATION MAY BE OMITTED. This clinical summary was aggregated from multiple sources. Caution should be exercised in using it in the provision of clinical care. This summary normalizes information from multiple sources, and as a consequence, information in this document may materially change the coding, format and clinical context of patient data. In addition, data may be omitted in some cases. CLINICAL DECISIONS SHOULD BE BASED ON THE PRIMARY CLINICAL RECORDS. [employer] [facility]. provides no warranty or guarantee of the accuracy or completeness of information in this document.
== END 2023-04-24 08:48 | disposition home or self-care (01) ==
LOC: EC 08:47
PROVIDERS: Visit Provider Orthopaedic Surgery
DX: M25.561 Pain in right knee (principal)
CPT/HCPCS: 73564

== ENCOUNTER 2023-04-27 08:39 | Outpatient (OUT) | payer BC, SELFPAY ==
--- NOTE | 2023-04-27 08:42 | MR_ITS ---
The [address] [address] Patient Name: ALEN TURNER MRN: [id number] date: 1980 Sex: F Assigned Patient Location: MRI Current Patient Location: MRI Accession/Order Number: [id number] Exam Date: 04/27/2023 08:50 Report Date: 04/27/2023 09:46 At the request of: URSZULA AVILA Procedure: MR knee RT wo con MR knee RT wo con, 04/27/2023 8:50 AM EST INDICATION: Acute Pain Right Knee M25.561 COMPARISON: Prior x-rays of the right knee dated 04/24/2023 and 04/17/2023 TECHNIQUE: Multiplanar and multisequential MR images of the right knee were obtained without contrast. FINDINGS: The study is limited due to patient's body habitus, using alternative coil and large [id number] that decreases the sensitivity of this study. Meniscus: Possible radial tear of the posterior horn of the medial meniscus. No definite abnormality of lateral meniscus is noted. Ligaments: There is high-grade of the ACL. The PCL, LCL, and iliotibial tract are unremarkable. Medial collateral ligament sprain type I is noted. Cartilage: There is focal fissuring and partial-thickness defect (less than 50%) in medial compartment. The remainder of cartilages are unremarkable for age. Bone: There is reactive bone marrow edema in the posterior lateral and medial tibial plateau. No osseus lesion. No acute fracture or dislocation. Muscles and tendons: The visualized portions of muscles and its tendons are unremarkable. There is increased intra-articular joint effusion with extension to the suprapatellar bursa. Ruptured Tadeo's cyst is noted. MR/MR knee RT wo con IMPRESSION: Limited study. High-grade tear of the ACL. MCL sprain type I Possible radial tear of the posterior horn of the medial meniscus with mild degenerative changes in medial compartment. A stat note was submitted to inform the clinician at the 9:45 AM. Electronically authenticated by: ROBERTH JACKSON Date: 04/27/2023 09:46
--- OUTSIDE RECORDS SUMMARY | 2023-04-27 08:43 | XMS_ITS | CCD ---
Author Name Unknown Address [facility] [address] [place] [address] Organization [facility] Care Team Providers Care Sweat Band Sewer Name Role Phone Rafaela West Primary Care Physician [phone] [place], DR GALAN Admitting Unavailable [place], DR [...] Unavailable Shelia Gomez CNP Primary Care Provider Unavailable Primary Care Provider Gigi Morales MD [...] day(s), # 30 cap(s), Refills(s) 0, Pharmacy: [facility], 170, cm, 11/10/21 16:30:00 EDT, Height/Length Dosing, 110.6, kg, 11/10/21 16:30:00 EDT, Weight Dosing Start Date: 11/10/21 Stop Date: 11/20/21 Status: Ordered Brompheniramine / Pseudoephedrine (1 source) alpha-Adrenergic Agonist Start: 07-26-2021 take 10 mL by mouth four times daily for cough and congestion Bromfed DM oral syrup 10 mL, Oral, QID for cough and congestion, 200 mL, Refill(s) 0, [facility]/pharmacy #[id number], 170, cm, 12/08/20 10:31:00 EDT, Height/Length Dosing, 113.5, kg, 12/08/20 10:31:00 EDT, Weight Dosing Start Date: 07/26/21 Status: Ordered cetirizine hydrochloride 10 mg oral tablet (1 source) Histamine-1 Receptor Antagonist Start: 12-13-2021 take 1 tablet by mouth once daily cetirizine 10 mg Tab 10 mg = 1 tab(s), Oral, Daily, # 90 tab(s), Refills(s) 3, Pharmacy: [facility], 170, cm, 12/13/21 17:01:00 EDT, Height/Length Dosing, 106.1, kg, 12/13/21 17:01:00 EDT, Weight Dosing Start Date: 12/13/21 Status: Ordered fluticasone propionate 0.05 mg/actuat metered dose nasal spray (1 source) Corticosteroid Start: 12-13-2021 End: 12-08-2022 take 1 spray(s) nasal route once daily Flonase 0.05 mg/inh nasal spray 1 spray(s), Nasal, Daily for 30 day(s), 16 gram, Refill(s) 11, each nostril, [facility], 170, cm, 12/13/21 17:01:00 EDT, Height/Length Dosing, 106.1, kg, 12/13/21 17:01:00 EDT, Weight Dosing Start Date: 12/13/21 Stop Date: 12/08/22 Status: Ordered methylPREDNISolone 4 mg oral tablet (1 source) Corticosteroid Start: 07-26-2021 End: 08-01-2021 Medrol 4 mg Tab = 1 packet(s), Oral, As Directed, as directed on package labeling, X 6 day(s), # 21 tab(s), Refills(s) 0, Pharmacy: [facility]/pharmacy #[id number], 170, cm, 12/08/20 10:31:00 EDT, Height/Length [...] # 20 tab(s), Refills(s) 2, Pharmacy: [facility], 170, cm, 12/08/20 10:31:00 EDT, Height/Length [...] day(s), # 30 tab(s), Refills(s) 0, Pharmacy: [facility], 170, cm, 11/10/21 16:30:00 EDT, Height/Length [...] day(s), # 30 tab(s), Refills(s) 0, Pharmacy: [facility], 170, cm, 10/06/21 16:26:00 EDT, [...] day(s), # 10 tab(s), Refills(s) 0, Pharmacy: [facility], 170, cm, 11/10/21 16:30:00 EDT, [...] puff(s), Inhalation, q6hr, 1 EA, Refill(s) 5, [facility]/pharmacy #[id number], 170, cm, 12/08/20 10:31:00 EDT, Height/Length [...] nucleic acid may have been Abnormal NEG [facility] Comment on above: Result Comment: affe cted [...] By: #### T RCMOL, VAGP, UCGP #### [address] [address] Sheep Sorter: Yoni Paniagua MD Gonorrhea Probe, Ur Result indeterminate . Amplification of target nucleic acid may have been Abnormal NEG [facility] Comment on above: Result Comment: affe cted [...] By: #### T RCMOL, VAGP, UCGP #### [place] [id number] Sheep Sorter: Yoni Paniagua MD HCV RNA,Quant,PCRon 05-18-19 23 HCV RNA,Quant Not detected Normal NOTDET [facility] Comment on above: Result Comment: INTERPRETIVE INFORMATION: [...] By: #### H CVQN, QBVD, HIVQN #### [facility] [email or web address] [address] [place] [address] [id number] Sheep Sorter: Yoni Paniagua MD HIV-1,Quant,RNAon 05-17-2022 HIV-1,RNA Not detected Normal NOTDET [facility] Comment on above: Result Comment: INTERPRETIVE INFORMATION: [...] By: #### H CVQN, QBVD, HIVQN #### [facility] [address] [place] [address] [id number] Sheep Sorter: Yoni Paniagua MD Source .PLASMA Normal [facility] Comment on above: Performed By: #### H CVQN, QBVD, HIVQN #### [facility] [email or web address] [address] [place] [address] [id number] Sheep Sorter: Yoni Paniagua MD Trich Vag, Molecularon 05-17 Trich Vag, Molecular Negative Normal NEG [facility] Comment on above: Result Comment: [...] By: #### T RCMOL, VAGP, UCGP #### [address] [address] Sheep Sorter: Yoni Paniagua MD Source: .URINE Normal [facility] Comment on above: Performed By: #### T RCMOL, VAGP, UCGP #### [address] [address] Sheep Sorter: Yoni Paniagua MD VDRL, Quantitativeon 023 VDRL, Quantitative Non-Reactive Normal NR [facility] Comment on above: Performed By: #### H CVQN, QBVD, HIVQN #### [address] [address] Sheep Sorter: Yoni Paniagua MD Vaginitis DNA Probeon 2022 Zelda Negative Normal NEG [facility] Comment on above: Result Comment: for Zelda sp. Method of testing is a DNA probe intended for detection and identification of Zelda species, Gardnerella vaginalis, and Trichomonas vaginalis nucleic acid in vaginal fluid specimens from patients with symptoms of vaginitis/vaginosis. Performed By: #### T RCMOL, VAGP, UCGP #### [facility] [email or web address] [address] [place] [address] Sheep Sorter: Yoni Paniagua MD Gardnerella Negative Normal NEG [facility] Comment on above: Result Comment: for Gardnerella vaginalis Performed By: #### T RCMOL, VAGP, UCGP #### [address] [address] Sheep Sorter: Yoni Paniagua MD Trichomonas Negative Normal NEG [facility] Comment on above: Result Comment: for Trichomonas Vaginalis Performed By: #### T RCMOL, VAGP, UCGP #### [facility] [address] [place], [place] [id number] Sheep Sorter: Yoni Paniagua MD Source .VAGINAL SWAB Normal [facility] Comment on above: Performed By: #### T RCMOL, VAGP, UCGP #### [facility] [address] [place], [place] [id number] Sheep Sorter: Yoni Paniagua MD Laboratory - Microbiology an d Antimicrobial susceptibilityon 05-16-2022 HIV 1 RNA SALOME+probe [#/Vol] Not detected (NOTDET ) [facility] Comment on above: Note: INTERPRETIVE I [...] 18 years of age.Responsible Observer: BETSY PARHAM ([id number]) No Panel Informationon 05-16 HCV RNA,Quant Not detected (NOTDET ) [facility] Comment on above: Note: INTERPRETIVE I [...] and Cellular Tissue-BasedProducts (HCT/P).Responsible Observer: BETSY PARHAM ([id number]) Reported Physicians See Note [facility] Comment on above: Note: Reported Physi cians:Ordering: Shelia GomezAttending: Shelia GomezReferring: Shelia Gomez Source .PLASMA [facility] Comment on above: Note: Responsible Ob geophysical observer: GABBY THAO ([id number]) VDRL, Quantitative Non-Reactive (NR ) [facility] Comment on above: Note: Responsible Ob geophysical observer: BEVERLY JC ([id number]) Zelda Negative (NEG ) [facility] Comment on above: Note: for Zelda sp .Method of testing is a DNA probe intended for detection and identification ofCandida species, Gardnerella vaginalis, and Trichomonas vaginalis nucleic acidin vaginal fluid specimens from patients with symptoms of vaginitis/vaginosis.Responsible Observer: DAYNA BLISS ([id number]) Chlamydia Probe, Ur Result indeterminate . Amplification of target nucleic acid may have been Abnormal (NEG ) [facility] Comment on above: Note: affected by [...] alternative nucleic acid target.Responsible Observer: TIMMY VIDAL ([id number]) Gardnerella Negative (NEG ) [facility] Comment on above: Note: for Gardnerell a vaginalisResponsible Observer: DAYNA BLISS ([id number]) Gonorrhea Probe, Ur Result indeterminate . Amplification of target nucleic acid may have been Abnormal (NEG ) [facility] Comment on above: Note: affected by [...] alternative nucleic acid target.Responsible Observer: TIMMY VIDAL ([id number]) Reported Physicians See Note [facility] Comment on above: Note: Reported Physi cians:Ordering: Shelia GomezAttending: Shelia GomezReferring: Shelia Gomez Source .VAGINAL SWAB [facility] Comment on above: Note: Responsible Ob geophysical observer: GERALDO ARGUELLO ([id number]) Source: .URINE [facility] Comment on above: Note: Responsible Ob geophysical observer: GERALDO ARGUELLO ([id number]) Trich Vag, Molecular Negative (NEG ) [facility] Comment on above: Note: T. vaginalis D [...] STEVE MARTINES (209) Trichomonas Negative (NEG ) [facility] Comment on above: Note: for Trichomona [...] later, room started spinning, felt like on eyqaa-ti-mhcmi, 5 minutes vomited. Went to [place] [facility]- gave her antiemetic, and Meclizine and [...] Mouth: mucous membranes pink, moist and intact. [place] posterior oropharynx, no palatal inflammation, uvula midline, [...] Neurologic: Cranial nerves II-XII grossly intact. Skin: [place], warm and dry. No rashes, ulcerations, or [...] day(s), # 30 tab(s), Refills(s) 0, Pharmacy: [facility], 170, cm, 12/13/21 17:01:00 EDT, [...] Daily, # 90 tab(s), Refills(s) 3, [facility], cm, 12/13/21 17:01:00 EDT, Height/Length Dosing, 106.1, kg, 12/13/21 17:01:00 EDT, Weight Dosing fluticasone nasal, 1 spray(s), Nasal, Daily for 30 day(s), 16 gram, Refill(s) 11, each nostril, [facility], 170, cm, 12/13/21 17:01:00 EDT, Height/Length Dosing, 106.1, kg, (more content not included)... Normal [facility] Comment on above: Result [...] related conditions, such as: ? Asthma. ? [place] eye. ? Ear infection. ? Upper respiratory [...] sitting on furniture or bedding. ? Take dhjh-fbr-tombvtu and prescription medicines only as told by [...] 11/15/2001 Document Revised: 02/02/2018 Document Reviewed: 03/30/2017 [employer] Patient Education ? 2020 [employer] Nutrition Healthy Eating Following a healthy [...] following amounts (more content not included)... Normal [facility] Ambulatory Visit Summaryon 1 Ambulatory Visit Summary [...] PM EST With: Rafaela West CNP Where: [facility] Normal [facility] Ambulatory Visit Summary ALEN GOMEZ :1980 Visit [...] Follow-Up Appointments 2021 5:00 PM EST With: Rafaeal West CNP Where: [facility] Normal [facility] POINT OF CARE GLUCOSEon 09-0 Glucose [Mass/Vol] 97 mg/dL Normal 74-106 [facility] Comment on above: Performed By: #### P OCGLUC #### [facility] [address] [address] [address] Lindsay Jimenes Family Medicine Office/Clini c [...] 1 hour. Concerns/complaints: none Now working at [employer]. Believes she is developing bronchitis again, happens [...] Mouth: mucous membranes pink, moist and intact. [place] posterior oropharynx, no palatal inflammation, uvula midline, [...] Neurologic: Cranial nerves II-XII grossly intact. Skin: [place], warm and dry. No rashes, ulcerations, or [...] day(s), # 30 tab(s), Refills(s) 0, Pharmacy: [facility], 170, cm, 11/10/21 16:30:00 EDT, [...] day(s), # 30 cap(s), Refills(s) 0, Pharmacy: [facility], 170, cm, 11/10/21 16:30:00 EDT, Height/Length Dosing, 110.6, kg, 11/10/21 16:30:00 EDT, Weight Dosing predniSONE, 40 mg = 2 tab(s), Oral, Daily, with food or milk, X 5 day(s), # 10 tab(s), Refills(s) 0, Pharmacy: [facility], 170, cm, 11/10/21 16:30:00 EDT, Height/Length Dosing, 110.6, kg, 11/10/21 16:30:00 EDT, Weight Dosing 3. BMI 38.0-38.9,adult (Z68.38: Body mass index [BMI] 38.0-38.9, adult) The standard range for ages 18 and older is >=18.5 and < 25 kg/m2. Your BMI today was above this range, this f (more content not included)... Normal [facility] Comment on above: Result [...] of your throat. ? Inserting the swab [facility] inside your nose, to the middle front [...] 08/20/2019 Document Revised: 09/17/2019 Document Reviewed: 08/20/2019 [employer] Patient Education ? 2019 [employer]. Nutrition BMI for Adults Body mass index (BMI) is a number that is calculated from a person's weight and height. BMI may help to estimate how much of a person's weight is composed of fat. BMI can help identify those who may be at higher r (more content not included)... Normal [facility] Family Medicine Office/Clini c Noteon 10-06-2021 Family [...] Neurologic: Cranial nerves II-XII grossly intact. Skin: [place], warm and dry. No rashes, excessive bruising, [...] day(s), # 30 tab(s), Refills(s) 0, Pharmacy: [facility], 170, cm, 10/06/21 16:26:00 EDT, [...] day(s), # 30 tab(s), Refills(s) 0, Pharmacy: [facility], 170, cm, 10/06/21 16:26:00 EDT, Height/Length Dosing, 114.3, kg, 08/0... 4. Obesity (E66.9: Obesity, unspecified) See #1. Follow-up With When Contact Information Brett KENDALL, Rafaela Gatica Within 1 month [address] [place] [address]- [phone] Additional Instructions: Patient Education Obesity, Adult Exercising [...] 03/30 (more content not included)... Normal [facility] Comment on above: Result Comment: Elec tronically [...] food choices, such as grocery stores and [employer] markets. What are the signs or symptoms? [...] 0?1 drink (more content not included)... Normal [facility] Family Medicine Office/Clini c Noteon 08-04-2021 Family [...] the Bromfed. These prescriptions were sent to [facility]. She can take the antibiotic from the dentist in addition to the medications that I prescribed. Alen can take Tylenol for her headaches. If things worsen, we can see her again for a follow-up. This visit was conducted via two-way, real-time interactive video communications from my office using [employer] due to the restrictions of the COVID-19 pandemic. No physical exam was conducted other than those areas of the body visible to telecommunications with the patient located at [address] [place] [address] [phone], with no one else in attendance. If [...] Jaison Frederick to record this visit. NEHA network operations specialist and provider reviewed before signing. NEHA: [place] Follow-up No qualifying data available Problem List/Past Medical History Ongoing Allergic rhinitis Anxiety and dep (more content not included)... Normal [facility] Comment on above: Result Comment: Elec tronically Signed By: Nir DALAL, Anahy Gatica\.br\Date and Time Signed: 08/04/21 11:24 EDT Vital Signs Date Time Vital Sign Value Performing Clinician Facility 05-16-2022 16:29-0400 Body height 170.18 cm Shelia Gomez ENOCH Work Phone: [facility] Work Phone: 05-16-2022 16:29-0400 Body mass index (BMI) [Ratio] 36 kg/m2 Shelia Gomez ENOCH Work Phone: [facility] Work Phone: 05-16-2022 16:29-0400 Body surface area Derived from formula 2.1 m2 Shelia Gomez ENOCH Work Phone: [facility] Work Phone: 05-16-2022 16:29-0400 Body weight 104.24 kg Shelia Gomez ENOCH Work Phone: [facility] Work Phone: 05-16-2022 16:29-0400 Diastolic blood pressure 82 mm[Hg] Shelia Ray WIRE DRAWER Work Phone: [facility] Work Phone: 05-16-2022 16:29-0400 Heart rate 82 /min Shelia Ray WIRE DRAWER Work Phone: [facility] Work Phone: 05-16-2022 16:29-0400 Inhaled oxygen concentration 21 % Shelia Ray WIRE DRAWER Work Phone: [facility] Work Phone: 05-16-2022 16:29-0400 Inhaled oxygen flow rate 0 L/min Shelia Ray WIRE DRAWER Work Phone: [facility] Work Phone: 05-16-2022 16:29-0400 Respiratory rate 18 /min Shelia Ray WIRE DRAWER Work Phone: [facility] Work Phone: 05-16-2022 16:29-0400 SaO2% (BldA) [Mass fraction] 97 % Shelia Ray WIRE DRAWER Work Phone: [facility] Work Phone: 05-16-2022 16:29-0400 Systolic blood pressure 118 mm[Hg] Shelia Ray WIRE DRAWER Work Phone: [facility] Work Phone: 11-10-2021 16:26-0400 Blood Pressure Location Rafaela Brett [facility] 11-10-2021 16:26-0400 Body temperature 97.7 [degF] Rafaela West [facility] 11-10-2021 16:26-0400 Diastolic blood pressure 78 mm[Hg] Rafaela West [facility] 11-10-2021 16:26-0400 Heart rate 93 /min Rafaela West [facility] 11-10-2021 16:26-0400 SaO2% (BldA) [Mass fraction] 98 % Rafaela West [facility] 11-10-2021 16:26-0400 Systolic blood pressure 136 mm[Hg] Rafaela West [facility] 10-06-2021 16:21-0400 Blood Pressure Location Rafaela West [facility] 10-06-2021 16:21-0400 Body temperature 97.52 [degF] Rafaela West [facility] 10-06-2021 16:21-0400 Diastolic blood pressure 66 mm[Hg] Rafaela West [facility] 10-06-2021 16:21-0400 Heart rate 83 /min Rafaela West [facility] 10-06-2021 16:21-0400 SaO2% (BldA) [Mass fraction] 98 % Rafaela West [facility] 10-06-2021 16:21-0400 Systolic blood pressure 128 mm[Hg] Rafaela West [facility] Encounters Encounter Date Encounter Type Care Provider Facility Start: 05-16-2022 End: 05-16-2022 Subsequent hospital visit by physician [facility] Start: 05-16-2022 End: 05-16-2022 [facility] visit, estab pt Maia Pageell ELECTRIC BATH ATTENDANT Work Phone: [facility] Work Phone: Start: 05-16-2022 End: 05-16-2022 [facility] visit, estab pt Maia Pageell ELECTRIC BATH ATTENDANT Work Phone: [facility] Work Phone: Start: 05-16-2022 End: 05-17-2022 ambulatory Gigi Carroll MD [facility] Start: 05-16-2022 End: 05-16-2022 Adult health examination Shelia Gomez ENOCH Work Phone: [facility] Work Phone: Start: 05-16-2022 End: 05-16-2022 [facility] visit new patient Shelia Gomez WIRE DRAWER Work Phone: [facility] Work Phone: Start: 05-16-2022 End: 05-16-2022 General Shelia Gomez CNP Work Phone: [facility] Work Phone: Start: 01-13-2022 End: 01-14-2022 ambulatory Rafaela West Facility:[facility] Start: 01-13-2022 End: 01-13-2022 Patient encounter procedure Rafaela West [facility] Start: 12-13-2021 End: 12-14-2021 ambulatory Rfaaela West [facility] Start: 11-11-2021 End: 11-11-[address] DOCTOR MARMOLEJO Facility:[facility] Start: 11-10-2021 End: 11-11-2021 ambulatory Rafaela West Facility:[facility] Start: 11-10-2021 End: 09-07-2022 Patient encounter procedure Rafaela West [facility] Start: 10-06-2021 End: 10-07-2021 ambulatory Rafaela West Facility:[facility] Start: 10-06-2021 End: 10-06-2021 Patient encounter procedure Rafaela West [facility] Start: 10-05-2021 ambulatory Anahy Loyola Facility:[facility] Start: 09-28-2021 ambulatory Anahy Loyola Facility:[facility] Start: 07-26-2021 End: 07-26-2021 Off-Site Anahy Loyola [facility] Start: 07-26-2021 End: 07-27-2021 ambulatory Anahy [...] Work Phone: Start: 05-16-2022 Tonsillectomy and adenoidectomy Shelai Gomez WIRE DRAWER Work Phone: Start: 05-16-2022 Viral screening Visit For: Screening Exam Infectious Diseases Viral Shelia Gomez WIRE DRAWER Work Phone: Ligation of fallopia n tube Anahy Loyola Plan of Treatment Date Care Activity Detail Author Start: 09-23-2022 [facility] Start: 06-15-2022 [facility] Start: 05-16-2022 End: 05-16-2022 Patient education based on identified need [facility] offered active and supportive listening, validated emotions and feelings, and processed current stressors with relapsing and changes in mood. ~[facility] encouraged patient to utilize positive supports and coping skills. ~P praised patient for prioritizing their recovery. ~ [facility] Start: 05-16-2022 End: 05-16-2022 Patient education based on identified need [facility] Start: 10-04-2021 Influenza vaccination Flu vaccine (# 1) [facility] [employer] Start: 1998 DTaP/Tdap/Td vaccine (1 - Tdap) DTaP/Tdap/Td vaccine (1 - Tdap) [facility] [employer] Start: 1980 COVID-19 Vaccine (#1) COVID-19 Vacci ne (#1) [id number] [facility] End: 05-16-2022 Hepatitis C RNA, quantitative, PCR [facility] Phone: Comment on above: Once for 1 Occurrenc es starting 05/16/2022 until 05/16/2022 End: 05-16-2022 HIV RNA, Quantitative, PCR [employer] Phone: Comment on above: Once for 1 Occurrenc es starting 05/16/2022 until 05/16/2022 End: 05-16-2022 VDRL, QUANTITATIVE [employer] Phone: Comment on above: Once for 1 Occurrenc es starting 05/16/2022 until 05/16/2022 Immunizations Immunization Date Immunization Notes Care Provider Fa cility 01-18-2021 COVID-19, mRNA, LNP- S, PF, 100 mcg or 50 mcg dose Anahy Loyola [facility] Comment on above: Reason for Medicatio n: Prophylaxis 01-18-2021 influenza virus vaccine, unspecified formulation; Translations: [Fluzone PF Quadrivalent ] Anahy Loyola [facility] Comment on above: Reason for Medicatio n: Prophylaxis 03-30-2020 SARS-CoV-2 (COVID-19 ) mRNA-1273 vaccine Anahy Loyola [facility] 03-09-2020 SARS-CoV-2 (COVID-19 ) mRNA-1273 vaccine nAahy Loyola [facility] NEGATED: Highlighted row has not occurred!12-13-2021 influenza virus vaccine, unspecified formulation Rafaela West [facility] Payers Date Payer Category Payer Unknown [id number] 2014 Unknown [id number] 1979 Unknown [id number] 2.16.84 [id number] 1979 Unknown [id number] 2.16.84 [id number] 1979 Unknown [id number] 2.16.8 [id number] 1979 Unknown [id number] 2.16.8 [id number] 1979 Unknown [id number] 2.16.8 [id number] 1979 Unknown [id number] 2.16.8 [id number] 1979 Unknown [id number] 2.16.8 [id number] 1979 Unknown [id number] 2.16.8 [id number] 1979 Unknown [id number] 2.16.8 [id number] 1979 Unknown [id number] 2.16.8 [id number] 1979 Unknown [id number] 2.16. [id number] 1959 Unknown [id number] 1959 Unknown [id number] Unknown [id number] 2. [id number] Social History Date Type Detail Facility Start: 07-26-2021 End: 12-13-2021 Tobacco smoking status Never smoked tobacco (finding) [facility] Tobacco smoking status Never [facility] Sex Assigned At Female [facility] Assertion Details of drug misuse behavior (observable entity) [facility] Tobacco smoking status Unknown if ever smoked [facility] Work Phone: Start: 1980 Sex Assigned At Not on file HOWIE MENA [facility] Work Phone: Assertion Gender identity finding (finding) [facility] Assertion Exposure to poll ution (event) [facility] Assertion Finding of sexua l orientation (finding) [facility] NEGATED: Highlighted row Assertion Current drinker of alcohol (finding) [facility] NEGATED: Highlighted row Assertion Exposure to pollution (event) [facility] NEGATED: Highlighted row Assertion [facility] NEGATED: Highlighted row Assertion Contraception (finding) [facility] Functional Status Date Assessment Result Facility 11-10-2021 Functional Status N/A [facility] 10-06-2021 Functional Status N/A [facility] Mental Status Date Assessment Result Facility Cognitive function Oriented to t divya, place, and person Oriented to person, time and place (finding) [facility] Work Phone: Clinical Notes 10-06-2021 to 05-20-2022 Note Date & Type Note Facility 05-20-2022 Progress note Progress note Date 05/20/2022 Chart Update Last documented on 05/22/2022; 2:17 PM, Shelia Gomez CNP; [facility] Current Medication - None Past Medical/Surgical [...] have been Abnormal [facility] [id number] Evaluation note Includes: Assessments for all patient encounters Findings Encounter Date Uncomplicated cocaine abuse BH Established Patie nt with Maia Cate ELECTRIC BATH ATTENDANT 05/16/2022 Last Documented On 3 5:43PM ; [facility] Assessment of body mass index Open Acces s New Patient with Shelia Gomez WIRE DRAWER 05/16/2022 Last Documented On 3 5:11PM ; [facility] Diabetes Risk Test Score was three score 05/16/2022 Open Access New Patient with Shelia Gomez WIRE DRAWER 05/16/2022 Last Documented On 3 5:11PM ; [facility] Exposure to STD Open Access New Patient with Chr josh Gomez WIRE DRAWER 05/16/2022 Last Documented On 3 5:11PM ; [facility] Nicotine dependence Open Access New Patient with Shelia Gomez WIRE DRAWER 05/16/2022 Last Documented On 3 5:11PM ; [facility] Screening for HIV Open Access New Patient with C maurice Gomez WIRE DRAWER 05/16/2022 Last Documented On 3 5:11PM ; [facility] Vaping related disorder Open Access New Patient with Shelia Gomez WIRE DRAWER 05/16/2022 Last Documented On 3 5:11PM ; [facility] Visit for: routine adult H&P with abnormal findings Open Access New Patient with Shelia Gomez WIRE DRAWER 05/16/2022 Last Documented On 3 5:11PM ; [facility] Visit for: screening exam fo r viral diseases Open Access New Patient with Shelia Gomez WIRE DRAWER 05/16/2022 Last Documented On 3 5:11PM ; [facility] Work Phone: 1(554) 518-989503-13-2023 Evaluation note Includes: Assessments for all patient encounters Findings Encounter Date Uncomplicated cocaine abuse BH Established Patie nt with Maia Pageell ELECTRIC BATH ATTENDANT 05/16/2022 Last Documented On 3 5:43PM ; [facility] Assessment of body mass index Open Acces s New Patient with Shelia Gomez WIRE DRAWER 05/16/2022 Last Documented On 3 10:10AM ; [facility] Diabetes Risk Test Score was three score 05/16/2022 Open Access New Patient with Shelia Gomez WIRE DRAWER 05/16/2022 Last Documented On 3 10:10AM ; [facility] Exposure to STD Open Access New Patient with Chr josh Gomez WIRE DRAWER 05/16/2022 Last Documented On 3 10:10AM ; [facility] Nicotine dependence Open Access New Patient with Shelia Ray WIRE DRAWER 05/16/2022 Last Documented On 3 10:10AM ; [facility] Screening for HIV Open Access New Patient with C hristina Ray WIRE DRAWER 05/16/2022 Last Documented On 3 10:10AM ; [facility] Vaping related disorder Open Access New Patient with Shelia Gomez WIRE DRAWER 05/16/2022 Last Documented On 3 10:10AM ; [facility] Visit for: routine adult H&P with abnormal findings Open Access New Patient with Shelia Gomez WIRE DRAWER 05/16/2022 Last Documented On 3 10:10AM ; [facility] Visit for: screening exam fo r viral diseases Open Access New Patient with Shelia Gomez WIRE DRAWER 05/16/2022 Last Documented On 3 10:10AM ; [facility] Work Phone: 1(327) 899-926803-13-2023 Evaluation note Includes: Assessments for all patient encounters Findings Encounter Date Uncomplicated cocaine abuse BH Sera Watts nt with Maia VALLEJO 05/16/2022 Last Documented On 3 5:43PM ; [facility] Assessment of body mass index Open Acces s New Patient with Shelia Gomez WIRE DRAWER 05/16/2022 Last Documented On 3 10:10AM ; [facility] Diabetes Risk Test Score was three score 05/16/2022 Open Access New Patient with Shelia Ray WIRE DRAWER 05/16/2022 Last Documented On 3 10:10AM ; [facility] Exposure to STD Open Access New Patient with Chr josh Ray WIRE DRAWER 05/16/2022 Last Documented On 3 10:10AM ; [facility] Nicotine dependence Open Access New Patient with Shelia Gomez WIRE DRAWER 05/16/2022 Last Documented On 3 10:10AM ; [facility] Screening for HIV Open Access New Patient with Rebekah Gomez WIRE DRAWER 05/16/2022 Last Documented On 3 10:10AM ; [facility] Vaping related disorder Open Access New Patient with Shelia Gomez WIRE DRAWER 05/16/2022 Last Documented On 3 10:10AM ; [facility] Visit for: routine adult H&P with abnormal findings Open Access New Patient with Shelia Gomez WIRE DRAWER 05/16/2022 Last Documented On 3 10:10AM ; [facility] Visit for: screening exam fo r viral diseases Open Access New Patient with Shelia Gomez WIRE DRAWER 05/16/2022 Last Documented On 3 10:10AM ; [facility] Work Phone: 1(494) 318-788303-13-2023 History general Narrative - Reported Includes: Medical History in patient's chart Description Last Updated History of anxiety disorder NOS 05/17/19 Last Documented On 3 10:10AM ; [facility] History of depression 05/16/2022 Last Documented On 3 10:10AM ; [facility] No previous hospitalizations 05/16/2022 Last Documented On 3 10:10AM ; [facility] Not planning to have a baby in the next 12 months 05/16/2022 Last Documented On 3 10:10AM ; [facility] Work Phone: 1(838) 261-388103-13-2023 History general Narrative - Reported Includes: Medical History in patient's chart Description Last Updated History of anxiety disorder NOS 05/17/19 Last Documented On 3 10:10AM ; [facility] History of depression 05/16/2022 Last Documented On 3 10:10AM ; [facility] No previous hospitalizations 05/16/2022 Last Documented On 3 10:10AM ; [facility] Not planning to have a baby in the next 12 months 05/16/2022 Last Documented On 3 10:10AM ; [facility] Work Phone: 1(507) 480-354703-13-2023 Progress note* Progress note Date Encounter Last Documented by 05/16/2022 BH Established Patient Last docu mented on 05/16/2022; 5:43 PM, Maia VALLEJO; [facility] Subjective BHP met with patient to discuss mood. Patient reports a history of anxiety, stating she was on prozac for almost a month but didn't like it. Patient reports she was at [facility] at that time and they were going [...] at a time? was 0 No . [facility]03-13-2023 Progress note* Progress note Date Encounter Last Documented by 05/16/2022 Open Access New Patient Last doc umented on 05/18/2022; 10:10 AM, Shelia Gomez CNP; [facility] Chief Complaint The Chief Complaint is: [...] load in March 2022 was completed at [facility] and was negative. 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 Was sober for 17 months, relapsed on 12/21/22, last use was approximately 4+ weeks ago - has not used recently because he doesn't have any money to buy drugs. Has a good support system and is planning on moving into [facility] in the near future. Chlamydia in 2003, completed treatment and testing since that time has been negative. Declines routine screening labs and PAP - states she is originally from [place], [place] and will likely have completed when [...] 05/16/2022 04:29 pm BP-Sitting L118/82 mmHg Pulse Rate-Xrdjngz83 bpm Respiration Rate18 per min Zytllr63 in Ypkqdn077 lbs 12.8 oz Body Mass Index36 kg/m2 Body Surface Area2.1 m2 Oxygen Qybtunarmy63 % O2 DeviceNone (Room Air) SiT007 % General Appearance: - Awake. - Alert. [...] VDRL Outside Labs/Microbiology: All 3 Urine Test Vkgkrpdve-Llzzzaxpi-Bpgxodjnylw, BD Affirm EndCited Will call with test [...] to 48 Years Old (1 Point) [Pre-DM]. [facility]03-13-2023 Reason for referral (narrative)* Date Encounter Description Provider Reason for Referral 05/16/22 Established Patient Maia VALLEJO Referral To Mental Health Team [facility] Work Phone: 1(356) 990-873709-07-2022 Hospital Discharge instructions Patient Education 11/10/2021 17:07:32 [...] height. This can be done either in [place] or metric measurements. Note that charts are available to help you find your BMI quickly and easily without having to do these calculations yourself. To calculate your BMI in [place] measurements, your health care provider will: [...] medical problems. BMI can be measured using [place]ian measurements or metric measurements. To interpret your [...] 11/01/2004 Document Revised: 02/02/2018 Document Reviewed: 01/03/2018 [employer] Patient Education 2020 [employer]. 11/10/2021 17:07:30 Viral Respiratory Infection Test Viral [...] back of your throat. Inserting the swab [facility] inside your nose, to the middle front [...] 08/20/2019 Document Revised: 09/17/2019 Document Reviewed: 08/20/2019 [employer] Patient Education 2020 [employer]. 11/10/2021 17:07:26 Health Maintenance, Female Health Maintenance, [...] 09/05/2011 Document Revised: 02/13/2019 Document Reviewed: 02/13/2019 [employer] Patient Education 2020 [employer]. Follow Up Care 10/06/2021 16:43:43 With:Rafaela West CNP Address: [address] [place] [address] [place] [address] [phone] When:1 month [facility] 08-03-2022 Hospital Discharge instructions Patient [...] ?Hypothyroidism. ?Polycystic ovarian syndrome (PCOS). ?Binge-eating disorder. ?[place] syndrome. Taking certain medicines, such as steroids, [...] food choices, such as grocery stores and [employer]. What are the signs or symptoms? [...] and how much exercise you get. Take dgzb-lpy-naxbokm and prescription medicines only as told by [...] 03/30/2005 Document Revised: 10/25/2018 Document Reviewed: 10/25/2018 [employer] Patient Education 2020 [employer] 10/06/2021 16:44:57 Exercising to Stay Healthy [...] exercise? Yard work, such as: ?Pushing a electronics engineering technologist. ?Raking and bagging leaves. Washing your car. [...] 03/25/2011 Document Revised: 02/02/2018 Document Reviewed: 01/11/2018 [employer] Patient Education 2020 [employer]. 10/06/2021 16:44:55 Healthy Eating Healthy Eating Following [...] soapy water. ?Keep raw meats separate from agqbv-sf-gnd foods, such as fruits and vegetables. ?manager media relations, meat, poultry, and eggs to the recommended [...] include 1 slice of bread, 1 cup hwopu-xx-qgm cereal, 3 cups popcorn, or cup cooked [...] 06/04/2018 Document Revised: 06/04/2018 Document Reviewed: 06/04/2018 [employer] Patient Education 2020 [employer] 10/06/2021 16:44:54 BMI for Adults BMI [...] height. This can be done either in [place] or metric measurements. Note that charts are available to help you find your BMI quickly and easily without having to do these calculations yourself. To calculate your BMI in [place] measurements, your health care provider will: [...] medical problems. BMI can be measured using [place]ian measurements or metric measurements. To interpret your [...] 11/01/2004 Document Revised: 02/02/2018 Document Reviewed: 01/03/2018 [employer] Patient Education 2020 [employer]. 10/06/2021 16:44:51 Health Maintenance, Female Health Maintenance, [...] 09/05/2011 Document Revised: 02/13/2019 Document Reviewed: 02/13/2019 [employer] Patient Education [employer]. Follow Up Care 09/28/2021 15:02:14 With:Rafaela West CNP Address: [address] [place] [address] [place] [address] [phone] When:1 month [facility] Evaluation + Plan note No data available for this section [facility] Evaluation + Plan note Future Appointments Appointment Date:11/10/2021 04:20:00 PM Scheduled Provider:Rafaela West CNP Location:[facility] Appointment Type:[facility] Evaluation + Plan note Future Appointments Appointment Date:12/13/2021 05:00:00 PM Scheduled Provider:Rafaela West CNP Location:[facility] Appointment Type:[facility] History general Narrative - Reported Includes: Medical History in patient's chart No [facility] Work Phone: History of Present illness Narrative History of Present Illness not supported for this document type No History of [facility] Work Phone: Hospital Discharge instructions No data available for this section [facility] Instructions Includes: Instructions for all patient encounters Education and Decision Aids were provided during visit for: BHP offered active and suppo rtive listening, validated emotions and feelings, and processed current stressors with relapsing and changes in mood. ~BHP encouraged patient to utilize positive supports and coping skills. ~BHP praised patient for prioritizing their recovery. ~ Last Documented On 3 5:43PM ; [facility] Discussed nutritional needs teach healthy choices including fruits and vegetables Last Documented On 3 4:35PM ; [facility] Patient education about a pr oper diet Last Documented On 3 4:35PM ; [facility] Discussed concerns about exe rcise : promote physical activity Last Documented On 3 4:35PM ; [facility] Not requesting contraception Last Documented On 3 4:35PM ; [facility] Work Phone: Instructions Includes: Instructions for all patient encounters Education and Decision Aids were provided during visit for: BHP offered active and suppo rtive listening, validated emotions and feelings, and processed current stressors with relapsing and changes in mood. ~BHP encouraged patient to utilize positive supports and coping skills. ~BHP praised patient for prioritizing their recovery. ~ Last Documented On 3 5:43PM ; [facility] Discussed nutritional needs teach healthy choices including fruits and vegetables Last Documented On 3 4:35PM ; [facility] Patient education about a pr oper diet Last Documented On 3 4:35PM ; [facility] Discussed concerns about exe rcise : promote physical activity Last Documented On 3 4:35PM ; [facility] Not requesting contraception Last Documented On 3 4:35PM ; [facility] Work Phone: Instructions Includes: Instructions for all patient encounters Education and Decision Aids were provided during visit for: BHP offered active and suppo rtive listening, validated emotions and feelings, and processed current stressors with relapsing and changes in mood. ~BHP encouraged patient to utilize positive supports and coping skills. ~BHP praised patient for prioritizing their recovery. ~ Last Documented On 3 5:43PM ; [facility] Discussed nutritional needs teach healthy choices including fruits and vegetables Last Documented On 3 4:35PM ; [facility] Patient education about a pr oper diet Last Documented On 3 4:35PM ; [facility] Discussed concerns about exe rcise : promote physical activity Last Documented On 3 4:35PM ; [facility] Not requesting contraception Last Documented On 3 4:35PM ; [facility] Work Phone: Patient problem outcome Narrative Includes: Evaluations & Outcomes for active Goals No [facility] Work Phone: Progress note No data available for this section [facility] Review of systems Narrative - Reported Review of Systems not supported for this document type No Review of Systems [facility] Work Phone: Summary Purpose Family History Description Last Updated Maternal history of depression 3 Last Documented On 3 10:10AM ; [facility] Sor[place] history of depression 05/16/2022 [place] history of psychiatric disorders 05/16/2022 Maternal history of psychiatric disorder s 05/16/2022 Maternal history of respiratory disorder 05/16/2022 Maternal history of systemic hypertensio n 05/16/2022 Description Last Updated Maternal history of depression 3 Last Documented On 3 10:10AM ; [facility] [place] history of depression 05/16/2022 Sor[place] [...] content) Personnel Name: Rafaela West CNP Address: [address] [place] [address], [facility] [place] [address] Personnel Name: Rafaela West CNP Address: [address], [place] [address] Personnel Name: Rafaela West CNP Address: Address: [place] [address] INFORMATION SOURCE (unrecogn ized section and content) DATE CREATED AUTHOR 11/15/2021 [facility] DATE CREATED AUTHOR AUTHOR'S ORGANIZ ATION 01/14/2022 [facility] DATE CREATED AUTHOR AUTHOR'S ORGANIZ ATION 05/17/2022 [facility] DATE CREATED AUTHOR AUTHOR'S ORGANIZ ATION 05/19/2022 [facility] FOR RECORDS PERTAINING TO PATIENTS WHO ARE [...] BE BASED ON THE PRIMARY CLINICAL RECORDS. [facility]. provides no warranty or guarantee of the accuracy or completeness of information in this document.
== END 2023-04-27 08:40 | disposition home or self-care (01) ==
LOC: MRI 08:39
PROVIDERS: Visit Provider Orthopaedic Surgery
DX: M25.561 Pain in right knee (principal); S83.31XA Tear of articular cartilage of right knee, current, initial encounter
CPT/HCPCS: 73721

== ENCOUNTER 2023-05-02 09:57 | Outpatient (OUT) | payer BC, SELFPAY ==
--- OUTSIDE RECORDS SUMMARY | 2023-05-02 10:04 | XMS_ITS | CCD ---
Author Name Unknown Address [facility] [address] [place] [address] Organization [facility] Care Team Providers Care Crane Ladle Person Name Role Phone Rafaela West Primary Care [...] day(s), # 30 cap(s), Refills(s) 0, Pharmacy: [facility], 170, cm, 11/10/21 16:30:00 EDT, Height/Length Dosing, 110.6, kg, 11/10/21 16:30:00 EDT, Weight Dosing Start Date: 11/10/21 Stop Date: 11/20/21 Status: Ordered Brompheniramine / Pseudoephedrine (1 source) alpha-Adrenergic Agonist Start: 07-26-2021 take 10 mL by mouth four times daily for cough and congestion Bromfed DM oral syrup 10 mL, Oral, QID for cough and congestion, 200 mL, Refill(s) 0, [facility]acy #[id number], 170, cm, 12/08/20 10:31:00 EDT, Height/Length Dosing, 113.5, kg, 12/08/20 10:31:00 EDT, Weight Dosing Start Date: 07/26/21 Status: Ordered cetirizine hydrochloride 10 mg oral tablet (1 source) Histamine-1 Receptor Antagonist Start: 12-13-2021 take 1 tablet by mouth once daily cetirizine 10 mg Tab 10 mg = 1 tab(s), Oral, Daily, # 90 tab(s), Refills(s) 3, Pharmacy: [facility], 170, cm, 12/13/21 17:01:00 EDT, Height/Length Dosing, 106.1, kg, 12/13/21 17:01:00 EDT, Weight Dosing Start Date: 12/13/21 Status: Ordered fluticasone propionate 0.05 mg/actuat metered dose nasal spray (1 source) Corticosteroid Start: 12-13-2021 End: 12-08-2022 take 1 spray(s) nasal route once daily Flonase 0.05 mg/inh nasal spray 1 spray(s), Nasal, Daily for 30 day(s), 16 gram, Refill(s) 11, each nostril, [facility], 170, cm, 12/13/21 17:01:00 EDT, Height/Length Dosing, 106.1, kg, 12/13/21 17:01:00 EDT, Weight Dosing Start Date: 12/13/21 Stop Date: 12/08/22 Status: Ordered methylPREDNISolone 4 mg oral tablet (1 source) Corticosteroid Start: 07-26-2021 End: 08-01-2021 Medrol 4 mg Tab = 1 packet(s), Oral, As Directed, as directed on package labeling, X 6 day(s), # 21 tab(s), Refills(s) 0, Pharmacy: [facility] #[id number], 170, cm, 12/08/20 10:31:00 EDT, Height/Length [...] # 20 tab(s), Refills(s) 2, Pharmacy: [facility], 170, cm, 12/08/20 10:31:00 EDT, Height/Length [...] day(s), # 30 tab(s), Refills(s) 0, Pharmacy: [facility], 170, cm, 11/10/21 16:30:00 [...] day(s), # 30 tab(s), Refills(s) 0, Pharmacy: [facility], 170, cm, 10/06/21 16:26:00 EDT, [...] day(s), # 10 tab(s), Refills(s) 0, Pharmacy: [facility], 170, cm, 11/10/21 16:30:00 EDT, [...] puff(s), Inhalation, q6hr, 1 EA, Refill(s) 5, [facility]pharmacy #[id number], 170, cm, 12/08/20 10:31:00 EDT, Height/Length [...] nucleic acid may have been Abnormal NEG [facility] Comment on above: Result Comment: affe [...] By: #### T RCMOL, VAGP, UCGP #### [address] [address] [employer]: Yoni Paniagau MD Gonorrhea Probe, Ur Result indeterminate . Amplification of target nucleic acid may have been Abnormal NEG [facility] Comment on above: Result Comment: affe [...] By: #### T RCMOL, VAGP, UCGP #### [place] [id number] [employer]: Yoni Paniagua MD HCV RNA,Quant,PCRon 05-18-19 23 HCV RNA,Quant Not detected Normal NOTDET [facility] Comment on above: Result Comment: INTERPRETIVE [...] By: #### H CVQN, QBVD, HIVQN #### [facility] [email or web address] [address] [place] [address] [id number] [employer]: Yoni Paniagua MD HIV-1,Quant,RNAon 05-17-2022 HIV-1,RNA Not detected Normal NOTDET [facility] Comment on above: Result Comment: INTERPRETIVE [...] By: #### H CVQN, QBVD, HIVQN #### [facility] [address] [place] [address] [phone] [employer]: Yoni Paniagua MD Source .PLASMA Normal [facility] Comment on above: Performed By: #### H CVQN, QBVD, HIVQN #### [facility] [email or web address] [address] [place] [address] [phone] [employer]: Yoni Paniagua MD Trich Vag, Molecularon 05-17 Trich Vag, Molecular Negative Normal NEG [facility] Comment on above: Result Comment: T. [...] By: #### T RCMOL, VAGP, UCGP #### [address] [address] [employer]: Yoni Paniagua MD Source: .URINE Normal [facility] Comment on above: Performed By: #### T RCMOL, VAGP, UCGP #### [address] [address] [employer]: Yoni Paniagua MD VDRL, Quantitativeon 023 VDRL, Quantitative Non-Reactive Normal NR [facility] Comment on above: Performed By: #### H CVQN, QBVD, HIVQN #### [address] [address] [employer]: Yoni Paniagua MD Vaginitis DNA Probeon 2022 Zelda Negative Normal NEG [facility] Comment on above: Result Comment: for Zelda sp. Method of testing is a DNA probe intended for detection and identification of Zelda species, Gardnerella vaginalis, and Trichomonas vaginalis nucleic acid in vaginal fluid specimens from patients with symptoms of vaginitis/vaginosis. Performed By: #### T RCMOL, VAGP, UCGP #### [facility] [email or web address] [address] [place] [id number] [employer]: Yoni Paniagua MD Gardnerella Negative Normal NEG [facility] Comment on above: Result Comment: for Gardnerella vaginalis Performed By: #### T RCMOL, VAGP, UCGP #### [address] [address] [employer]: Yoni Paniagua MD Trichomonas Negative Normal NEG [facility] Comment on above: Result Comment: for Trichomonas Vaginalis Performed By: #### T RCMOL, VAGP, UCGP #### [facility] [address], [place] [phone] [employer]: Yoni Paniagua MD Source .VAGINAL SWAB Normal [facility] Comment on above: Performed By: #### T RCMOL, VAGP, UCGP #### [facility] [address], [place] [phone] [employer]: Yoni Paniagua MD Laboratory - Microbiology an d Antimicrobial susceptibilityon 05-16-2022 HIV 1 RNA SALOME+probe [#/Vol] Not detected (NOTDET ) [facility] Comment on above: Note: INTERPRETIVE I NFORMATION: [...] 18 years of age.Responsible Observer: BETSY PARHAM ([id number]) No Panel Informationon 05-16 HCV RNA,Quant Not detected (NOTDET ) [facility] Comment on above: Note: INTERPRETIVE I NFORMATION: [...] and Cellular Tissue-BasedProducts (HCT/P).Responsible Observer: BETSY PARHAM ([id number]) Reported Physicians See Note [facility] Comment on above: Note: Reported Physi cians:Ordering: Shelia GomezAttending: Shelia GomezReferring: Shelia Gomez Source .PLASMA [facility] Comment on above: Note: Responsible Ob prospecting observer: GABBY THAO ([id number]) VDRL, Quantitative Non-Reactive (NR ) [facility] Comment on above: Note: Responsible Ob prospecting observer: BEVERLY JC ([id number]) Zelda Negative (NEG ) [facility] Comment on above: Note: for Zelda sp .Method of testing is a DNA probe intended for detection and identification ofCandida species, Gardnerella vaginalis, and Trichomonas vaginalis nucleic acidin vaginal fluid specimens from patients with symptoms of vaginitis/vaginosis.Responsible Observer: DAYNA BLISS ([id number]) Chlamydia Probe, Ur Result indeterminate . Amplification of target nucleic acid may have been Abnormal (NEG ) [facility] Comment on above: Note: affected by in [...] alternative nucleic acid target.Responsible Observer: TIMMY VIDAL ([id number]) Gardnerella Negative (NEG ) [facility] Comment on above: Note: for Gardnerell a vaginalisResponsible Observer: DAYNA BLISS ([id number]) Gonorrhea Probe, Ur Result indeterminate . Amplification of target nucleic acid may have been Abnormal (NEG ) [facility] Comment on above: Note: affected by in [...] alternative nucleic acid target.Responsible Observer: TIMMY VIDAL ([id number]) Reported Physicians See Note [facility] Comment on above: Note: Reported Physi cians:Ordering: Shelia GomezAttending: Shleia GomezReferring: Shelia Gomez Source .VAGINAL SWAB [facility] Comment on above: Note: Responsible Ob prospecting observer: GERALDO ARGUELLO ([id number]) Source: .URINE [facility] Comment on above: Note: Responsible Ob prospecting observer: GERALDO ARGUELLO ([id number]) Trich Vag, Molecular Negative (NEG ) [facility] Comment on above: Note: T. vaginalis [...] STEVE MARTINES (209) Trichomonas Negative (NEG ) [facility] Comment on above: Note: for Trichomona s [...] later, room started spinning, felt like on dyxno-xb-[id number], 5 minutes vomited. Went to [facility]- gave her antiemetic, and Meclizine and [...] Mouth: mucous membranes pink, moist and intact. [place] posterior oropharynx, no palatal inflammation, uvula midline, [...] Neurologic: Cranial nerves II-XII grossly intact. Skin: [place], warm and dry. No rashes, ulcerations, or [...] day(s), # 30 tab(s), Refills(s) 0, Pharmacy: [facility], 170, cm, 12/13/21 17:01:00 EDT, [...] Daily, # 90 tab(s), Refills(s) 3, [facility], cm, 12/13/21 17:01:00 EDT, Height/Length Dosing, 106.1, kg, 12/13/21 17:01:00 EDT, Weight Dosing fluticasone nasal, 1 spray(s), Nasal, Daily for 30 day(s), 16 gram, Refill(s) 11, each nostril, [facility], [facility], cm, 12/13/21 17:01:00 EDT, Height/Length Dosing, 106.1, kg, (more content not included)... Normal [facility] Comment on above: Result Comment: [...] related conditions, such as: ? Asthma. ? [place] eye. ? Ear infection. ? Upper respiratory [...] sitting on furniture or bedding. ? Take yiux-vxp-fmpsqmz and prescription medicines only as told by [...] 11/15/2001 Document Revised: 02/02/2018 Document Reviewed: 03/30/2017 [email or web address] Patient Education ? 2020 [employer] Nutrition Healthy Eating Following a healthy [...] following amounts (more content not included)... Normal [facility] Ambulatory Visit Summaryon 1 Ambulatory [...] PM EST With: Rafaela West CNP Where: [facility] Normal [facility] Ambulatory Visit Summary ALEN GOMEZ [...] PM EST With: Rafaela West CNP Where: [facility] Normal [facility] POINT OF CARE GLUCOSEon 09-0 Glucose [Mass/Vol] 97 mg/dL Normal 74-106 [facility] Comment on above: Performed By: #### P OCGLUC #### [facility] [address] [address] [address] Lindsay Jimenes Family Medicine Office/Clini c [...] 1 hour. Concerns/complaints: none Now working at [employer], [place]. Believes she is developing bronchitis again, happens [...] Mouth: mucous membranes pink, moist and intact. [place] posterior oropharynx, no palatal inflammation, uvula midline, [...] Neurologic: Cranial nerves II-XII grossly intact. Skin: [place], warm and dry. No rashes, ulcerations, or [...] day(s), # 30 tab(s), Refills(s) 0, Pharmacy: [facility], 170, cm, 11/10/21 16:30:00 EDT, [...] day(s), # 30 cap(s), Refills(s) 0, Pharmacy: [facility], 170, cm, 11/10/21 16:30:00 EDT, Height/Length Dosing, 110.6, kg, 11/10/21 16:30:00 EDT, Weight Dosing predniSONE, 40 mg = 2 tab(s), Oral, Daily, with food or milk, X 5 day(s), # 10 tab(s), Refills(s) 0, Pharmacy: [facility], 170, cm, 11/10/21 16:30:00 EDT, Height/Length Dosing, 110.6, kg, 11/10/21 16:30:00 EDT, Weight Dosing 3. BMI 38.0-38.9,adult (Z68.38: Body mass index [BMI] 38.0-38.9, adult) The standard range for ages 18 and older is >=18.5 and < 25 kg/m2. Your BMI today was above this range, this f (more content not included)... Normal [facility] Comment on above: Result Comment: [...] of your throat. ? Inserting the swab residential inside your nose, to the middle front [...] 08/20/2019 Document Revised: 09/17/2019 Document Reviewed: 08/20/2019 [email or web address] Patient Education ? 2019 [employer] Nutrition BMI for Adults Body mass index (BMI) is a number that is calculated from a person's weight and height. BMI may help to estimate how much of a person's weight is composed of fat. BMI can help identify those who may be at higher r (more content not included)... Normal [facility] Family Medicine Office/Clini c Noteon [...] Neurologic: Cranial nerves II-XII grossly intact. Skin: [place], warm and dry. No rashes, excessive bruising, [...] day(s), # 30 tab(s), Refills(s) 0, Pharmacy: [facility], 170, cm, 10/06/21 16:26:00 EDT, [...] day(s), # 30 tab(s), Refills(s) 0, Pharmacy: [facility], 170, cm, 10/06/21 16:26:00 EDT, Height/Length Dosing, 114.3, kg, 08/0... 4. Obesity (E66.9: Obesity, unspecified) See #1. Follow-up With When Contact Information Brett KENDALL, Rafaela Gatica Within 1 month [address] [place] [address]- [phone] Additional Instructions: Patient Education Obesity, Adult Exercising [...] 03/30 (more content not included)... Normal [facility] Comment on above: Result Comment: [...] food choices, such as grocery stores and [employer] markets. What are the signs or symptoms? [...] 0?1 drink (more content not included)... Normal [facility] Family Medicine Office/Clini c Noteon [...] the Bromfed. These prescriptions were sent to [facility]. She can take the antibiotic from the dentist in addition to the medications that I prescribed. Alen can take Tylenol for her headaches. If things worsen, we can see her again for a follow-up. This visit was conducted via two-way, real-time interactive video communications from my office using [employer] due to the restrictions of the COVID-19 pandemic. No physical exam was conducted other than those areas of the body visible to telecommunications with the patient located at [address] [place] [address] [phone], with no one else in attendance. If [...] Jaison Frederick to record this visit. NEHA air quality instrument specialist and provider reviewed before signing. NEHA: [place] Follow-up No qualifying data available Problem List/Past Medical History Ongoing Allergic rhinitis Anxiety and dep (more content not included)... Normal [facility] Comment on above: Result Comment: Elec tronically Signed By: Nir DALAL, Anahy Gatica\.br\Date and Time Signed: 08/04/21 11:24 EDT Vital Signs Date Time Vital Sign Value Performing Clinician Facility 05-16-2022 16:29-0400 Body height 170.18 cm Shelia Gomez ENOCH Work Phone: [facility] Work Phone: 05-16-2022 16:29-0400 Body mass index (BMI) [Ratio] 36 kg/m2 Shelia Gomez ENOCH Work Phone: [facility] Work Phone: 05-16-2022 16:29-0400 Body surface area Derived from formula 2.1 m2 Shelia Gomez ENOCH Work Phone: [facility] Work Phone: 05-16-2022 16:29-0400 Body weight 104.24 kg Shelia Gomez ENOCH Work Phone: [facility] Work Phone: 05-16-2022 16:29-0400 Diastolic blood pressure 82 mm[Hg] Shelia Ray EQUIPMENT MONITOR PHOTOTYPESETTING Work Phone: [facility] Work Phone: 05-16-2022 16:29-0400 Heart rate 82 /min Shelia Ray EQUIPMENT MONITOR PHOTOTYPESETTING Work Phone: [facility] Work Phone: 05-16-2022 16:29-0400 Inhaled oxygen concentration 21 % Shelia Ray EQUIPMENT MONITOR PHOTOTYPESETTING Work Phone: [facility] Work Phone: 05-16-2022 16:29-0400 Inhaled oxygen flow rate 0 L/min Shelia Ray EQUIPMENT MONITOR PHOTOTYPESETTING Work Phone: [facility] Work Phone: 05-16-2022 16:29-0400 Respiratory rate 18 /min Shelia Ray EQUIPMENT MONITOR PHOTOTYPESETTING Work Phone: [facility] Work Phone: 05-16-2022 16:29-0400 SaO2% (BldA) [Mass fraction] 97 % Shelia Ray EQUIPMENT MONITOR PHOTOTYPESETTING Work Phone: [facility] Work Phone: 05-16-2022 16:29-0400 Systolic blood pressure 118 mm[Hg] Shelia Ray EQUIPMENT MONITOR PHOTOTYPESETTING Work Phone: [facility] Work Phone: 11-10-2021 16:26-0400 Blood Pressure Location Rafaela Brett [facility] 11-10-2021 16:26-0400 Body temperature 97.7 [degF] Rafaela West [facility] 11-10-2021 16:26-0400 Diastolic blood pressure 78 mm[Hg] Rafaela West [facility] 11-10-2021 16:26-0400 Heart rate 93 /min Rafaela Wset [facility] 11-10-2021 16:26-0400 SaO2% (BldA) [Mass fraction] 98 % Rafaela West [facility] 11-10-2021 16:26-0400 Systolic blood pressure 136 mm[Hg] Rafaela West [facility] 10-06-2021 16:21-0400 Blood Pressure Location Rafaela West [facility] 10-06-2021 16:21-0400 Body temperature 97.52 [degF] Rafaela West [facility] 10-06-2021 16:21-0400 Diastolic blood pressure 66 mm[Hg] Rafaela West [facility] 10-06-2021 16:21-0400 Heart rate 83 /min Rafaela West [facility] 10-06-2021 16:21-0400 SaO2% (BldA) [Mass fraction] 98 % Rafaela West [facility] 10-06-2021 16:21-0400 Systolic blood pressure 128 mm[Hg] Rafaela West [facility] Encounters Encounter Date Encounter Type Care Provider Facility Start: 05-16-2022 End: 05-16-2022 Subsequent hospital visit by physician [facility] Start: 05-16-2022 End: 05-16-2022 [facility] visit, estab pt Maia Pageell [employer] Work Phone: [facility] Work Phone: Start: 05-16-2022 End: 05-16-2022 [facility] visit, estab pt Maia Pageell [employer] Work Phone: [facility] Work Phone: Start: 05-16-2022 End: 05-17-2022 ambulatory Gigi Carroll MD [facility] Start: 05-16-2022 End: 05-16-2022 Adult health examination Shelia Gomez [employer]CH Work Phone: [facility] Work Phone: Start: 05-16-2022 End: 05-16-2022 [facility] visit new patient Shelia Gomez EQUIPMENT MONITOR PHOTOTYPESETTING Work Phone: [facility] Work Phone: Start: 05-16-2022 End: 05-16-2022 General Shelia Gomez CNP Work Phone: [facility] Work Phone: Start: 01-13-2022 End: 01-14-2022 ambulatory Rafaela West Facility:[facility] Start: 01-13-2022 End: 01-13-2022 Patient encounter procedure Rafaela West [facility] Start: 12-13-2021 End: 12-14-2021 ambulatory Rafaela West [facility] Start: 11-11-2021 End: 11-11-[address] DOCTOR MARMOLEJO Facility:[facility] Start: 11-10-2021 End: 11-11-2021 ambulatory Rafaela West Facility[facility] Start: 11-10-2021 End: 09-07-2022 Patient encounter procedure Rafaela West [facility] Start: 10-06-2021 End: 10-07-2021 ambulatory Rafaela West Facility:[facility] Start: 10-06-2021 End: 10-06-2021 Patient encounter procedure Rafaela West [facility] Start: 10-05-2021 ambulatory Anahy Loyola Facility:[facility] Start: 09-28-2021 ambulatory Anahy Loyola Facility:[facility] [place] Start: 07-26-2021 End: 07-26-2021 Off-Site Anahy Loyola [facility] Start: 07-26-2021 End: 07-27-2021 ambulatory Anahy Loyola [...] Start: 05-16-2022 Tonsillectomy and adenoidectomy Shelia Gomez EQUIPMENT MONITOR PHOTOTYPESETTING Work Phone: Start: 05-16-2022 Viral screening Visit For: Screening Exam Infectious Diseases Viral Shelia Gomez EQUIPMENT MONITOR PHOTOTYPESETTING Work Phone: Ligation of fallopia n tube Anahy Loyola Plan of Treatment Date Care Activity Detail Author Start: 09-23-2022 [facility] Start: 06-15-2022 [facility] Start: 05-16-2022 End: 05-16-2022 Patient education based on identified need BHP offered active and supportive listening, validated emotions and feelings, and processed current stressors with relapsing and changes in mood. ~BHP encouraged patient to utilize positive supports and coping skills. ~P praised patient for prioritizing their recovery. ~ [facility] Start: 05-16-2022 End: 05-16-2022 Patient education based on identified need [facility] Start: 10-04-2021 Influenza vaccination Flu vaccine (# 1) [facility] [employer] Start: 1998 DTaP/Tdap/Td vaccine (1 - Tdap) DTaP/Tdap/Td vaccine (1 - Tdap) [facility] [employer] Start: 1979 COVID-19 Vaccine (#1) COVID-19 Vacci ne (#1) [facility] End: 05-16-2022 Hepatitis C RNA, quantitative, PCR [facility]: Comment on above: Once for 1 Occurrenc es starting 05/16/2022 until 05/16/2022 End: 05-16-2022 HIV RNA, Quantitative, PCR [facility] Phone: Comment on above: Once for 1 Occurrenc es starting 05/16/2022 until 05/16/2022 End: 05-16-2022 VDRL, QUANTITATIVE [facility] Phone: Comment on above: Once for 1 Occurrenc es starting 05/16/2022 until 05/16/2022 Immunizations Immunization Date Immunization Notes Care Provider Fa cility 01-18-2021 COVID-19, mRNA, LNP- S, PF, 100 mcg or 50 mcg dose Anahy Loyola [facility] Comment on above: Reason for Medicatio n: Prophylaxis 01-18-2021 influenza virus vaccine, unspecified formulation; Translations: [Fluzone PF Quadrivalent ] Anahy Loyola [facility] Comment on above: Reason for Medicatio n: Prophylaxis 03-30-2020 SARS-CoV-2 (COVID-19 ) mRNA-1273 vaccine Anahy Loyola [facility] 03-09-2020 SARS-CoV-2 (COVID-19 ) mRNA-1273 vaccine Anahy Loyola [facility] NEGATED: Highlighted row has not occurred!12-13-2021 influenza virus vaccine, unspecified formulation Rafaela West [facility] Payers Date Payer Category Payer Unknown [id number] 2014 Unknown [id number] 1979 Unknown [id number] 2.16.84 [id number] 1979 Unknown [id number] 2.16.84 [id number] 1979 Unknown [id number] 2.16.8 [id number] 1979 Unknown [id number] 2.16.8 [id number] 1979 Unknown [id number] 2.16.8 [id number] 1979 Unknown [id number] 2.16.8 [id number] 1979 Unknown [id number] 2.16.8 [id number] 1979 Unknown [id number] 2.16.8 [id number] 1979 Unknown [id number] 2.16.8 [id number] 1979 Unknown [id number] 2.16.8 [id number] 1979 Unknown [id number] 2.16. [id number] 1959 Unknown [id number] 1959 Unknown [id number] Unknown [id number] 2. [id number] Social History Date Type Detail Facility Start: 07-26-2021 End: 12-13-2021 Tobacco smoking status Never smoked tobacco (finding) [facility] Tobacco smoking status Never [facility] Sex Assigned At Female [facility] Assertion Details of drug misuse behavior (observable entity) [facility] Tobacco smoking status Unknown if ever smoked [facility] Work Phone: Start: 1980 Sex Assigned At Not on file HOWIE MENA [facility] Work Phone: Assertion Gender identity finding (finding) [facility] Assertion Exposure to poll ution (event) [facility] Assertion Finding of sexua l orientation (finding) [facility] NEGATED: Highlighted row Assertion Current drinker of alcohol (finding) [facility] NEGATED: Highlighted row Assertion Exposure to pollution (event) [facility] NEGATED: Highlighted row Assertion [facility] NEGATED: Highlighted row Assertion Contraception (finding) [facility] Functional Status Date Assessment Result Facility 11-10-2021 Functional Status N/A [facility] 10-06-2021 Functional Status N/A [facility] Mental Status Date Assessment Result Facility Cognitive function Oriented to t divya, place, and person Oriented to person, time and place (finding) [facility] Work Phone: Clinical Notes 10-06-2021 to 05-20-2022 Note Date & Type Note Facility 05-20-2022 Progress note Progress note Date 05/20/2022 Chart Update Last documented on 05/22/2022; 2:17 PM, Shelia Gomez CNP; [facility] Current Medication - None Past Medical/Surgical History [...] have been Abnormal [facility]2016 Evaluation note Includes: Assessments for all patient encounters Findings Encounter Date Uncomplicated cocaine abuse BH Established Patie nt with Maia Cate FELTMAKER AND WEIGHER 05/16/2022 Last Documented On 3 5:43PM ; [facility] Assessment of body mass index Open Acces s New Patient with Shelia Gomez EQUIPMENT MONITOR PHOTOTYPESETTING 05/16/2022 Last Documented On 3 5:11PM ; [facility] Diabetes Risk Test Score was three score 05/16/2022 Open Access New Patient with Shelia Gomez EQUIPMENT MONITOR PHOTOTYPESETTING 05/16/2022 Last Documented On 3 5:11PM ; [facility] Exposure to STD Open Access New Patient with Chr josh Gomez EQUIPMENT MONITOR PHOTOTYPESETTING 05/16/2022 Last Documented On 3 5:11PM ; [facility] Nicotine dependence Open Access New Patient with Shelia Gomez EQUIPMENT MONITOR PHOTOTYPESETTING 05/16/2022 Last Documented On 3 5:11PM ; [facility] Screening for HIV Open Access New Patient with C maurice Gomez EQUIPMENT MONITOR PHOTOTYPESETTING 05/16/2022 Last Documented On 3 5:11PM ; [facility] Vaping related disorder Open Access New Patient with Shelia Gomez EQUIPMENT MONITOR PHOTOTYPESETTING 05/16/2022 Last Documented On 3 5:11PM ; [facility] Visit for: routine adult H&P with abnormal findings Open Access New Patient with Shelia Gomez EQUIPMENT MONITOR PHOTOTYPESETTING 05/16/2022 Last Documented On 3 5:11PM ; [facility] Visit for: screening exam fo r viral diseases Open Access New Patient with Shelia Gomez EQUIPMENT MONITOR PHOTOTYPESETTING 05/16/2022 Last Documented On 3 5:11PM ; [facility] Work Phone: 1(750) 459-552703-13-2023 Evaluation note Includes: Assessments for all patient encounters Findings Encounter Date Uncomplicated cocaine abuse BH Established Patie nt with Maia Pageell FELTMAKER AND WEIGHER 05/16/2022 Last Documented On 3 5:43PM ; [facility] Assessment of body mass index Open Acces s New Patient with Shelia Gomez EQUIPMENT MONITOR PHOTOTYPESETTING 05/16/2022 Last Documented On 3 10:10AM ; [facility] Diabetes Risk Test Score was three score 05/16/2022 Open Access New Patient with Shelia Gomez EQUIPMENT MONITOR PHOTOTYPESETTING 05/16/2022 Last Documented On 3 10:10AM ; [facility] Exposure to STD Open Access New Patient with Chr josh Gomez EQUIPMENT MONITOR PHOTOTYPESETTING 05/16/2022 Last Documented On 3 10:10AM ; [facility] Nicotine dependence Open Access New Patient with Shelia Ray EQUIPMENT MONITOR PHOTOTYPESETTING 05/16/2022 Last Documented On 3 10:10AM ; [facility] Screening for HIV Open Access New Patient with C hristina Ray EQUIPMENT MONITOR PHOTOTYPESETTING 05/16/2022 Last Documented On 3 10:10AM ; [facility] Vaping related disorder Open Access New Patient with Shelia Gomez EQUIPMENT MONITOR PHOTOTYPESETTING 05/16/2022 Last Documented On 3 10:10AM ; [facility] Visit for: routine adult H&P with abnormal findings Open Access New Patient with Shelia Gomez EQUIPMENT MONITOR PHOTOTYPESETTING 05/16/2022 Last Documented On 3 10:10AM ; [facility] Visit for: screening exam fo r viral diseases Open Access New Patient with Shelia Gomez EQUIPMENT MONITOR PHOTOTYPESETTING 05/16/2022 Last Documented On 3 10:10AM ; [facility] Work Phone: 1([phone]) 894-692103-13-2023 Evaluation note Includes: Assessments for all patient encounters Findings Encounter Date Uncomplicated cocaine abuse BH Sera Watts nt with Maia VALLEJO 05/16/2022 Last Documented On 3 5:43PM ; [facility] Assessment of body mass index Open Acces s New Patient with Shelia Gomez EQUIPMENT MONITOR PHOTOTYPESETTING 05/16/2022 Last Documented On 3 10:10AM ; [facility] Diabetes Risk Test Score was three score 05/16/2022 Open Access New Patient with Shelia Ray EQUIPMENT MONITOR PHOTOTYPESETTING 05/16/2022 Last Documented On 3 10:10AM ; [facility] Exposure to STD Open Access New Patient with Chr josh Ray EQUIPMENT MONITOR PHOTOTYPESETTING 05/16/2022 Last Documented On 3 10:10AM ; [facility] Nicotine dependence Open Access New Patient with Shelia Gomez EQUIPMENT MONITOR PHOTOTYPESETTING 05/16/2022 Last Documented On 3 10:10AM ; [facility] Screening for HIV Open Access New Patient with Rebekah Gomez EQUIPMENT MONITOR PHOTOTYPESETTING 05/16/2022 Last Documented On 3 10:10AM ; [facility] Vaping related disorder Open Access New Patient with Shelia Gomez EQUIPMENT MONITOR PHOTOTYPESETTING 05/16/2022 Last Documented On 3 10:10AM ; [facility] Visit for: routine adult H&P with abnormal findings Open Access New Patient with Shelia Gomez EQUIPMENT MONITOR PHOTOTYPESETTING 05/16/2022 Last Documented On 3 10:10AM ; [facility] Visit for: screening exam fo r viral diseases Open Access New Patient with Shelia Gomez EQUIPMENT MONITOR PHOTOTYPESETTING 05/16/2022 Last Documented On 3 10:10AM ; [facility] Work Phone: 1(431) 666-968803-13-2023 History general Narrative - Reported Includes: Medical History in patient's chart Description Last Updated History of anxiety disorder NOS 05/17/19 Last Documented On 3 10:10AM ; [facility] History of depression 05/16/2022 Last Documented On 3 10:10AM ; [facility] No previous hospitalizations 05/16/2022 Last Documented On 3 10:10AM ; [facility] Not planning to have a baby in the next 12 months 05/16/2022 Last Documented On 3 10:10AM ; [facility] Work Phone: [phone]) 541-985203-13-2023 History general Narrative - Reported Includes: Medical History in patient's chart Description Last Updated History of anxiety disorder NOS 05/17/19 Last Documented On 3 10:10AM ; [facility] History of depression 05/16/2022 Last Documented On 3 10:10AM ; [facility] No previous hospitalizations 05/16/2022 Last Documented On 3 10:10AM ; [facility] Not planning to have a baby in the next 12 months 05/16/2022 Last Documented On 3 10:10AM ; [facility] Work Phone: [phone]) 128-516403-13-2023 Progress note* Progress note Date Encounter Last Documented by 05/16/2022 BH Established Patient Last docu mented on 05/16/2022; 5:43 PM, Maia VALLEJO; [facility] Subjective BHP met with patient to discuss mood. Patient reports a history of anxiety, stating she was on prozac for almost a month but didn't like it. Patient reports she was at [facility] at that time and they were [...] is: STD testing. History of Present Illness Alne Gomez is a 42 year old female. [...] at a time? was 0 No . [facility]03-13-2023 Progress note* Progress note Date Encounter Last Documented by 05/16/2022 Open Access New Patient Last doc umented on 05/18/2022; 10:10 AM, Shelia Gomez CNP; [facility] Chief Complaint The Chief Complaint is: Pt [...] load in March 2022 was completed at [facility] and was negative. 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 Was sober for 17 months, relapsed on 12/21/22, last use was approximately 4+ weeks ago - has not used recently because he doesn't have any money to buy drugs. Has a good support system and is planning on moving into [facility] in the near future. Chlamydia in 2003, completed treatment and testing since that time has been negative. Declines routine screening labs and PAP - states she is originally from [place], [place] and will likely have completed when [...] 05/16/2022 04:29 pm BP-Sitting L118/82 mmHg Pulse Rate-Uuymjyk49 bpm Respiration Rate18 per min Uwvcas69 in Ipewij681 lbs 12.8 oz Body Mass Index36 kg/m2 Body Surface Area2.1 m2 Oxygen Atyenspitz25 % O2 DeviceNone (Room Air) RfT380 % General Appearance: - Awake. - Alert. [...] VDRL Outside Labs/Microbiology: All 3 Urine Test Sxgbtvbwk-Rntizryfs-Fnhqyqdkuyh, BD Affirm EndCited Will call with test [...] to 48 Years Old (1 Point) [Pre-DM]. [facility]03-13-2023 Reason for referral (narrative)* Date Encounter Description Provider Reason for Referral 05/16/22 Established Patient Maia VALLEJO Referral To Mental Health Team [facility] Work Phone: [phone]) 195-777409-07-2022 Hospital Discharge instructions Patient Education 11/10/2021 17:07:32 [...] height. This can be done either in Ivorian ([place] or metric measurements. Note that charts are available to help you find your BMI quickly and easily without having to do these calculations yourself. To calculate your BMI in Ivorian ([place] measurements, your health care provider will: [...] medical problems. BMI can be measured using Ivorian measurements or metric measurements. To interpret your [...] 11/01/2004 Document Revised: 02/02/2018 Document Reviewed: 01/03/2018 [email or web address] Patient Education 2020 [employer] 11/10/2021 17:07:30 Viral Respiratory Infection Test Viral [...] back of your throat. Inserting the swab residential inside your nose, to the middle front [...] 08/20/2019 Document Revised: 09/17/2019 Document Reviewed: 08/20/2019 [email or web address] Patient Education 2020 [employer] 11/10/2021 17:07:26 Health Maintenance, Female Health Maintenance, [...] 09/05/2011 Document Revised: 02/13/2019 Document Reviewed: 02/13/2019 [email or web address] Patient Education 2020 [employer] Follow Up Care 10/06/2021 16:43:43 With:Rafaela West CNP Address: [address] [place] [address] [place] [address] [phone] When:1 month [facility] 08-03-2022 Hospital Discharge instructions Patient [...] ?Hypothyroidism. ?Polycystic ovarian syndrome (PCOS). ?Binge-eating disorder. ?Sullivan syndrome. Taking certain medicines, such as steroids, [...] food choices, such as grocery stores and [employer] markets. What are the signs or symptoms? [...] and how much exercise you get. Take nyny-svm-gobbfub and prescription medicines only as told by [...] 03/30/2005 Document Revised: 10/25/2018 Document Reviewed: 10/25/2018 [email or web address] Patient Education 2020 [employer] 10/06/2021 16:44:57 Exercising to Stay Healthy [...] exercise? Yard work, such as: ?Pushing a tobacco blender. ?Raking and bagging leaves. Washing your car. [...] 03/25/2011 Document Revised: 02/02/2018 Document Reviewed: 01/11/2018 [email or web address] Patient Education 2020 [employer] 10/06/2021 16:44:55 Healthy Eating Healthy Eating Following [...] soapy water. ?Keep raw meats separate from wddki-hr-bci foods, such as fruits and vegetables. ?cloth folder machine, meat, poultry, and eggs to the recommended [...] include 1 slice of bread, 1 cup qieva-ge-uak cereal, 3 cups popcorn, or cup cooked [...] 06/04/2018 Document Revised: 06/04/2018 Document Reviewed: 06/04/2018 [email or web address] Patient Education 2020 [employer] 10/06/2021 16:44:54 BMI for Adults BMI [...] height. This can be done either in Ivorian (U.[place].) or metric measurements. Note that charts are available to help you find your BMI quickly and easily without having to do these calculations yourself. To calculate your BMI in Ivorian ([place] measurements, your health care provider will: [...] medical problems. BMI can be measured using Ivorian measurements or metric measurements. To interpret your [...] 11/01/2004 Document Revised: 02/02/2018 Document Reviewed: 01/03/2018 [email or web address] Patient Education 2020 [employer] 10/06/2021 16:44:51 Health Maintenance, Female Health Maintenance, [...] 09/05/2011 Document Revised: 02/13/2019 Document Reviewed: 02/13/2019 [email or web address] Patient Education Notizza. Follow Up Care 09/28/2021 15:02:14 With:Rafaela West CNP Address: [address] [place] [address] [place] [address] [phone] When:1 month [facility] Evaluation + Plan note No data available for this section [facility] Evaluation + Plan note Future Appointments Appointment Date:11/10/2021 04:20:00 PM Scheduled Provider:Rafaela West CNP Location:[facility] Appointment Type:[facility] Evaluation + Plan note Future Appointments Appointment Date:12/13/2021 05:00:00 PM Scheduled Provider:Rafaela West CNP Location:[facility] Appointment Type:[facility] History general Narrative - Reported Includes: Medical History in patient's chart No Medical History [facility] Work Phone: History of Present illness Narrative History of Present Illness not supported for this document type No History of Present Illness [facility] Work Phone: Hospital Discharge instructions No data available for this section [facility] Instructions Includes: Instructions for all patient encounters Education and Decision Aids were provided during visit for: BHP offered active and suppo rtive listening, validated emotions and feelings, and processed current stressors with relapsing and changes in mood. ~BHP encouraged patient to utilize positive supports and coping skills. ~BHP praised patient for prioritizing their recovery. ~ Last Documented On 3 5:43PM ; [facility] Discussed nutritional needs teach healthy choices including fruits and vegetables Last Documented On 3 4:35PM ; [facility] Patient education about a pr oper diet Last Documented On 3 4:35PM ; [facility] Discussed concerns about exe rcise : promote physical activity Last Documented On 3 4:35PM ; [facility] Not requesting contraception Last Documented On 3 4:35PM ; [facility] Work Phone: Instructions Includes: Instructions [...] ~ Last Documented On 3 5:43PM ; [facility] Discussed nutritional needs teach healthy choices including fruits and vegetables Last Documented On 3 4:35PM ; [facility] Patient education about a pr oper diet Last Documented On 3 4:35PM ; [facility] Discussed concerns about exe rcise : promote physical activity Last Documented On 3 4:35PM ; [facility] Not requesting contraception Last Documented On 3 4:35PM ; [facility] Work Phone: Instructions Includes: Instructions [...] ~ Last Documented On 3 5:43PM ; [facility] Discussed nutritional needs teach healthy choices including fruits and vegetables Last Documented On 3 4:35PM ; [facility] Patient education about a pr oper diet Last Documented On 3 4:35PM ; [facility] Discussed concerns about exe rcise : promote physical activity Last Documented On 3 4:35PM ; [facility] Not requesting contraception Last Documented On 3 4:35PM ; [facility] Work Phone: Patient problem outcome Narrative Includes: Evaluations & Outcomes for active Goals No Outcomes [facility] Work Phone: Progress note No data available for this section [facility] Review of systems Narrative - Reported Review of Systems not supported for this document type No Review of Systems [facility] Work Phone: Summary Purpose Family History Description Last Updated Maternal history of depression 3 Last Documented On 3 10:10AM ; [facility] Sororal history of depression 05/16/2022 Sororal history of psychiatric disorders 05/16/2022 Maternal history of psychiatric disorder s 05/16/2022 Maternal history of respiratory disorder 05/16/2022 Maternal history of systemic hypertensio n 05/16/2022 Description Last Updated Maternal history of depression 3 Last Documented On 3 10:10AM ; [facility] Sororal history of depression 05/16/2022 Sororal history [...] content) Personnel Name: Rafaela West CNP Address: [address] [place] [address], [facility] [place] [address] Personnel Name: Rafaela West CNP Address: [address], [place] [address] Personnel Name: Rafaela West CNP Address: Address: [place] [address] INFORMATION SOURCE (unrecogn ized section and content) DATE CREATED AUTHOR 11/15/2021 [facility] DATE CREATED AUTHOR AUTHOR'S ORGANIZ ATION 01/14/2022 [facility] DATE CREATED AUTHOR AUTHOR'S ORGANIZ ATION 05/17/2022 [facility] DATE CREATED AUTHOR AUTHOR'S ORGANIZ ATION 05/19/2022 [facility] FOR RECORDS PERTAINING TO PATIENTS WHO [...] BE BASED ON THE PRIMARY CLINICAL RECORDS. [facility]. provides no warranty or guarantee of the accuracy or completeness of information in this document.
--- NOTE | 2023-05-02 10:07 | ECG_ITS ---
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
--- NOTE | 2023-05-02 10:17 | XR_ITS ---
The [address] [address] Patient Name: ALEN TURNER MRN: [id number] date: 1980 Sex: F Assigned Patient Location: [facility] Current Patient Location: [facility] Accession/Order Number: [id number] Exam Date: 05/02/2023 10:30 Report Date: 05/02/2023 10:53 At the request of: URSZULA AVILA Procedure: XR chest 2V EXAMINATION: XR chest 2V HISTORY: Preop exam COMPARISON: No relevant comparison available. TECHNIQUE: PA and lateral FINDINGS: LUNGS: No significant pulmonary parenchymal abnormalities. VASCULATURE: No increased pulmonary vasculature. PLEURA: No pneumothorax, effusion, or pleural thickening. CARDIAC: No cardiomegaly or cardiac silhouette abnormality. MEDIASTINUM: No visible mass or adenopathy. BONES: No fracture or visible bone lesion. OTHER: Negative. XR/XR chest 2V IMPRESSION: No acute cardiopulmonary process Electronically authenticated by: KRISTIN HOGAN Date: 05/02/2023 10:53
--- NOTE | 2023-05-02 10:31 | P.GSHP_ITS ---
History of Present Illness History of Present Illness Chief complaint: medial meniscus tear Narrative: Patient presents for preadmission testing. Please see HPI from Dr. Liu dated 05/01/2023. Review of Systems ROS Narrative REVIEW OF SYSTEMS: Negative except as stated in HPI, ten or more systems reviewed. Constitutional: No fever , chills, weakness ENT: No sore throat or epistaxis Cardiovascular: No edema, chest pain, palpitations, or activity intolerance Respiratory: No shortness of breath, cough, or wheezing Gastrointestinal: No abdominal pain, constipation, diarrhea, or vomiting Genitourinary: No dysuria or hematuria Neurological: No numbness, tingling, weakness, or headache Psychiatric: No mood changes PFSH PFSH Medical History (Updated 05/02/23 @ 10:32 by Halie Hutchins NP) Bucket-handle tear of medial meniscus of right knee as current injury ?S83.211A - Bucket-handle tear of medial meniscus, current injury, right knee, initial encounter (ICD-10) Depression ?F32.A - Depression, unspecified (ICD-10) Anxiety ?F41.9 - Anxiety disorder, unspecified (ICD-10) Electronic cigarette use ?Z78.9 - Other specified health status (ICD-10) Migraine ?G43.909 - Migraine, unspecified, not intractable, without status migrainosus (ICD-10) Medial meniscus tear ?S83.249A - Other tear of medial meniscus, current injury, unspecified knee, initial encounter (ICD-10) Surgical History (Updated 05/02/23 @ 10:15 by Halie Hutchins NP) History of tonsillectomy and adenoidectomy ?Z90.89 - Acquired absence of other organs (ICD-10) History of dilation and curettage ?Z98.890 - Other specified postprocedural states (ICD-10) History of dilation and curettage ?Z98.890 - Other specified postprocedural states (ICD-10) Family History (Updated 05/02/23 @ 10:15 by Halie Hutchins NP) Other Family history of hypertension Family history of myocardial infarction Family history of stroke Social History (Updated 05/02/23 @ 10:11 by Halie Hutchins NP) Within the past year, how often did you have a drink containing alcohol: never Score interpretation: A score less than 3 is consistent with normal alcohol consumption. Smoking status: Current some day smoker Do you use any of these nicotine containing products: vaping products Non-prescribed substance use: denies use Previous occupational history: Factory Highest level of school completed/degree received: high school graduate Meds Home Medications and Allergies Home Medications Medication Instructions Recorded Confirmed Type ibuprofen 800 mg tablet 800 mg PO Q8H PRN pain #20 tabs 04/17/23 05/02/23 Rx Allergies Allergy/AdvReac Type Severity Reaction Status Date / Time No Known Drug Allergies Allergy Verified 05/02/23 10:09 Exam Narrative Exam Narrative: Constitutional: Awake, alert, comfortable, well-appearing, nontoxic, inte ractive, vital signs as charted Head: Normocephalic, atraumatic Eyes: Conjunctiva and lids normal to inspection, pupils normal ENT: Tympanic membranes pearly xavier, nonerythematous, noninjected, naris patent, posterior oropharynx clear, oral mucosa moist Neck: Supple, normal appearance, normal range of motion, no meningeal signs, no lymphadenopathy Respiratory: No respiratory distress, breath sounds clear Cardiovascular: Regular rate and rhythm, strong and regular heart tones Skin: No rashes or induration, no lesions, only visible skin inspected Neuro: No neurological deficits, normal sensation Psychiatric: Oriented ?3, normal affect Assessment and Plan Assessment and Plan (1) Bucket-handle tear of medial meniscus of right knee as current injury: Plan Right knee arthroscopic partial medial meniscectomy scheduled with Dr. Liu 05/08/2023.
[2023-05-02 10:52] LABS: Basophils Absolute Auto 0.1 10^3/uL (0.0-0.1); Basophils Percent Auto 0.9 % (0.2-2.0); Eosinophils Absolute Auto 0.2 10^3/uL (0.0-0.7); Eosinophils Percent Auto 2.8 % (0.9-7.0); Hemoglobin 11.7 g/dL (12.0-16.0); Immature Granulocytes Abs Auto 0.04 10^3/uL (0.00-0.03); Immature Granulocytes Pct Auto 0.5 % (0.0-0.5); Lymphocytes Absolute Auto 1.8 10^3/uL (1.2-3.8); Lymphocytes Percent Auto 24.7 % (20.5-60.0); Mean Corpuscular HGB Conc 30.8 g/dL (29.9-35.2); Mean Corpuscular Hemoglobin 24.9 pg (26.7-34.0); Mean Platelet Volume 9.1 fL (9.5-13.5); Monocytes Absolute Auto 0.6 10^3/uL (0.3-0.8); Monocytes Percent Auto 8.5 % (1.7-12.0); Neutrophils Absolute Auto 4.6 10^3/uL (1.4-6.5); Neutrophils Percent Auto 62.6 % (43.0-75.0); Platelet Count 445 10^3/uL (150-450); Red Blood Count 4.69 10^6/uL (4.20-5.40); Red Cell Distribution Width 14.7 % (11.0-15.0); White Blood Count 7.4 10^3/uL (4.0-11.0)
[2023-05-02 11:10] LABS: Anion Gap 12.5; BUN Creatinine Ratio 22.7; Calcium 8.6 mg/dL (8.5-10.1); Carbon Dioxide 27.9 mmol/L (21.0-32.0); Chloride 104 mmol/L (98-107); Estimated GFR (African America >60 (>=60); Estimated GFR (Non-African Ame >60 (>=60); Glucose 86 mg/dL (74-106); Potassium 4.4 mmol/L (3.5-5.1); Sodium 140 mmol/L (136-145)
== END 2023-05-02 09:58 | disposition home or self-care (01) ==
PROVIDERS: Visit Provider Orthopaedic Surgery
DX: Z01.810 Encounter for preprocedural cardiovascular examination (principal); Z01.812 Encounter for preprocedural laboratory examination; Z01.818 Encounter for other preprocedural examination; S83.211A Bucket-handle tear of medial meniscus, current injury, right knee, initial encounter
CPT/HCPCS: 71046; 80048; 85025; 93005; G0463

== ENCOUNTER 2023-05-08 12:10 | Day surgery (SDC) | payer BC, SELFPAY ==
[2023-05-02 10:27] VITALS: BP 150/86; PULSE 73; RESP 16; TEMP 36.3; O2SAT 96; BMI 38.3
[2023-05-08] VITALS (11 sets, daily range): BP systolic 134–158; BP diastolic 93–117; PULSE 82–99; RESP 14–23; TEMP 36.3–36.4; O2SAT 94–98; BMI 38.1
--- OUTSIDE RECORDS SUMMARY | 2023-05-08 12:12 | XMS_ITS | CCD ---
Author Name Unknown Address [facility] [address] [place] [address] Organization [facility] Care Team Providers Care Reading Specialist Name Role Phone Rafaela West Primary Care Physician LOUIS, DR GALAN Admitting Unavailable LOUIS, DR GALAN Attending Unavailable MISC, DR BOLTON Primary Care Unavailable LOUIS, DR GALAN Consulting Unavailable JANETC, DR BOLTON Primary Care Unavailable JESUS, DR ELY Melissa Admitting Unavailabl afsaneh LEE, DR ELY Melissa Attending Unavailabl e [...] day(s), # 30 cap(s), Refills(s) 0, Pharmacy: [facility], 170, cm, 11/10/21 16:30:00 EDT, Height/Length Dosing, 110.6, kg, 11/10/21 16:30:00 EDT, Weight Dosing Start Date: 11/10/21 Stop Date: 11/20/21 Status: Ordered Brompheniramine / Pseudoephedrine (1 source) alpha-Adrenergic Agonist Start: 07-26-2021 take 10 mL by mouth four times daily for cough and congestion Bromfed DM oral syrup 10 mL, Oral, QID for cough and congestion, 200 mL, Refill(s) 0, [facility]/pharmacy #[id number], 170, cm, 12/08/20 10:31:00 EDT, Height/Length Dosing, 113.5, kg, 12/08/20 10:31:00 EDT, Weight Dosing Start Date: 07/26/21 Status: Ordered cetirizine hydrochloride 10 mg oral tablet (1 source) Histamine-1 Receptor Antagonist Start: 12-13-2021 take 1 tablet by mouth once daily cetirizine 10 mg Tab 10 mg = 1 tab(s), Oral, Daily, # 90 tab(s), Refills(s) 3, Pharmacy: [facility], 170, cm, 12/13/21 17:01:00 EDT, Height/Length Dosing, 106.1, kg, 12/13/21 17:01:00 EDT, Weight Dosing Start Date: 12/13/21 Status: Ordered fluticasone propionate 0.05 mg/actuat metered dose nasal spray (1 source) Corticosteroid Start: 12-13-2021 End: 12-08-2022 take 1 spray(s) nasal route once daily Flonase 0.05 mg/inh nasal spray 1 spray(s), Nasal, Daily for 30 day(s), 16 gram, Refill(s) 11, each nostril, [facility], 170, cm, 12/13/21 17:01:00 EDT, Height/Length Dosing, 106.1, kg, 12/13/21 17:01:00 EDT, Weight Dosing Start Date: 12/13/21 Stop Date: 12/08/22 Status: Ordered methylPREDNISolone 4 mg oral tablet (1 source) Corticosteroid Start: 07-26-2021 End: 08-01-2021 Medrol 4 mg Tab = 1 packet(s), Oral, As Directed, as directed on package labeling, X 6 day(s), # 21 tab(s), Refills(s) 0, Pharmacy: [facility]/pharmacy #[id number], 170, cm, 12/08/20 10:31:00 EDT, Height/Length [...] # 20 tab(s), Refills(s) 2, Pharmacy: [facility], 170, cm, 12/08/20 10:31:00 EDT, Height/Length [...] day(s), # 30 tab(s), Refills(s) 0, Pharmacy: [facility] 1985, 170, cm, 11/10/21 16:30:00 EDT, [...] day(s), # 30 tab(s), Refills(s) 0, Pharmacy: [facility], 170, cm, 10/06/21 16:26:00 [...] day(s), # 10 tab(s), Refills(s) 0, Pharmacy: [facility], 170, cm, 11/10/21 16:30:00 [...] puff(s), Inhalation, q6hr, 1 EA, Refill(s) 5, [facility]/pharmacy #[id number], 170, cm, 12/08/20 10:31:00 EDT, Height/Length [...] nucleic acid may have been Abnormal NEG [facility] Comment on above: Result Comment: affe [...] By: #### T RCMOL, VAGP, UCGP #### [address] [address] Test Development Engineer: Yoni Paniagua MD Gonorrhea Probe, Ur Result indeterminate . Amplification of target nucleic acid may have been Abnormal NEG [facility] Comment on above: Result Comment: affe [...] By: #### T RCMOL, VAGP, UCGP #### [place] [id number] Test Development Engineer: Yoni Paniagua MD HCV RNA,Quant,PCRon 05-18-19 23 HCV RNA,Quant Not detected Normal NOTDET [facility] Comment on above: Result Comment: INTERPRETIVE [...] By: #### H CVQN, QBVD, HIVQN #### [facility] [address] [place] [address] [id number] Test Development Engineer: Yoni Paniagua MD HIV-1,Quant,RNAon 05-17-2022 HIV-1,RNA Not detected Normal NOTDET [facility] Comment on above: Result Comment: INTERPRETIVE [...] By: #### H CVQN, QBVD, HIVQN #### [facility] [address] [place] [address] [id number] Test Development Engineer: Yoni Paniagua MD Source .PLASMA Normal [facility] Comment on above: Performed By: #### H CVQN, QBVD, HIVQN #### [facility] [address] [place] [address] [id number] Test Development Engineer: Yoni Paniagua MD Trich Vag, Molecularon 05-17 Trich Vag, Molecular Negative Normal NEG [facility] Comment on above: Result Comment: T. v [...] By: #### T RCMOL, VAGP, UCGP #### [address] [address] Test Development Engineer: Yoni Paniagua MD Source: .URINE Normal [facility] Comment on above: Performed By: #### T RCMOL, VAGP, UCGP #### [address] [address] Test Development Engineer: Yoni Paniagua MD VDRL, Quantitativeon 023 VDRL, Quantitative Non-Reactive Normal NR [facility] Comment on above: Performed By: #### H CVQN, QBVD, HIVQN #### [address] [address] Test Development Engineer: Yoni Paniagua MD Vaginitis DNA Probeon 2022 Zelda Negative Normal NEG [facility] Comment on above: Result Comment: for Zelda sp. Method of testing is a DNA probe intended for detection and identification of Zelda species, Gardnerella vaginalis, and Trichomonas vaginalis nucleic acid in vaginal fluid specimens from patients with symptoms of vaginitis/vaginosis. Performed By: #### T RCMOL, VAGP, UCGP #### [facility] [address] [place] [address] Test Development Engineer: Yoni Paniagua MD Gardnerella Negative Normal NEG [facility] Comment on above: Result Comment: for Gardnerella vaginalis Performed By: #### T RCMOL, VAGP, UCGP #### [address] [address] Test Development Engineer: Yoni Paniagua MD Trichomonas Negative Normal NEG [facility] Comment on above: Result Comment: for Trichomonas Vaginalis Performed By: #### T RCMOL, VAGP, UCGP #### [facility] [address] [place], [place] [id number] Test Development Engineer: Yoni Paniagua MD Source .VAGINAL SWAB Normal [facility] Comment on above: Performed By: #### T RCMOL, VAGP, UCGP #### [facility] [address] [place], [place] [id number] Test Development Engineer: Yoni Paniagua MD Laboratory - Microbiology an d Antimicrobial susceptibilityon 05-16-2022 HIV 1 RNA SALOME+probe [#/Vol] Not detected (NOTDET ) [facility] Comment on above: Note: INTERPRETIVE I NFORMATION: [...] 18 years of age.Responsible Observer: BETSY PARHAM ([id number]) No Panel Informationon 05-16 HCV RNA,Quant Not detected (NOTDET ) [facility] Comment on above: Note: INTERPRETIVE I NFORMATION: [...] and Cellular Tissue-BasedProducts (HCT/P).Responsible Observer: BETSY PARHAM ([id number]) Reported Physicians See Note [facility] Comment on above: Note: Reported Physi cians:Ordering: Shelia GomezAttending: Shelia GomezReferring: Shelia Gomez Source .PLASMA [facility] Comment on above: Note: Responsible Ob patient observer: GABBY THAO ([id number]) VDRL, Quantitative Non-Reactive (NR ) [facility] Comment on above: Note: Responsible Ob patient observer: BEVERLY JC ([id number]) Zelda Negative (NEG ) [facility] Comment on above: Note: for Zelda sp .Method of testing is a DNA probe intended for detection and identification ofCandida species, Gardnerella vaginalis, and Trichomonas vaginalis nucleic acidin vaginal fluid specimens from patients with symptoms of vaginitis/vaginosis.Responsible Observer: DAYNA BLISS ([id number]) Chlamydia Probe, Ur Result indeterminate . Amplification of target nucleic acid may have been Abnormal (NEG ) [facility] Comment on above: Note: affected by in [...] alternative nucleic acid target.Responsible Observer: TIMMY VIDAL ([id number]) Gardnerella Negative (NEG ) [facility] Comment on above: Note: for Gardnerell a vaginalisResponsible Observer: DAYNA BLISS ([id number]) Gonorrhea Probe, Ur Result indeterminate . Amplification of target nucleic acid may have been Abnormal (NEG ) [facility] Comment on above: Note: affected by in [...] alternative nucleic acid target.Responsible Observer: TIMMY VIDAL ([id number]) Reported Physicians See Note [facility] Comment on above: Note: Reported Physi cians:Ordering: Shelia GomezAttending: Shelia GomezReferring: Shelia Gomez Source .VAGINAL SWAB [facility] Comment on above: Note: Responsible Ob patient observer: GERALDO ARGUELLO ([id number]) Source: .URINE [facility] Comment on above: Note: Responsible Ob patient observer: GERALDO ARGUELLO ([id number]) Trich Vag, Molecular Negative (NEG ) [facility] Comment on above: Note: T. vaginalis [...] STEVE MARTINES (209) Trichomonas Negative (NEG ) [facility] Comment on above: Note: for Trichomona s [...] later, room started spinning, felt like on [id number]-wv-[id number], 5 minutes vomited. Went to [facility]- gave her antiemetic, and Meclizine and [...] Mouth: mucous membranes pink, moist and intact. [place] posterior oropharynx, no palatal inflammation, uvula midline, [...] Neurologic: Cranial nerves II-XII grossly intact. Skin: [place], warm and dry. No rashes, ulcerations, or [...] day(s), # 30 tab(s), Refills(s) 0, Pharmacy: [facility], 170, cm, 12/13/21 17:01:00 EDT, [...] Daily, # 90 tab(s), Refills(s) 3, [facility], [facility], cm, 12/13/21 17:01:00 EDT, Height/Length Dosing, 106.1, kg, 12/13/21 17:01:00 EDT, Weight Dosing fluticasone nasal, 1 spray(s), Nasal, Daily for 30 day(s), 16 gram, Refill(s) 11, each nostril, [facility], 170, cm, 12/13/21 17:01:00 EDT, Height/Length Dosing, 106.1, kg, (more content not included)... Normal [facility] Comment on above: Result Comment: Elec tronically [...] related conditions, such as: ? Asthma. ? [place] eye. ? Ear infection. ? Upper respiratory [...] sitting on furniture or bedding. ? Take gpwl-jvu-nvfyncg and prescription medicines only as told by [...] 11/15/2001 Document Revised: 02/02/2018 Document Reviewed: 03/30/2017 [employer] Patient Education ? 2020 [employer] Nutrition Healthy Eating Following a healthy [...] following amounts (more content not included)... Normal [facility] Ambulatory Visit Summaryon 1 Ambulatory Visit Summary [...] PM EST With: Rafaela West CNP Where: [facility] Normal [facility] Ambulatory Visit Summary ALEN GOMEZ :1980 Visit [...] PM EST With: Rafaela West CNP Where: [facility] Normal [facility] POINT OF CARE GLUCOSEon 09-0 Glucose [Mass/Vol] 97 mg/dL Normal 74-106 [facility] Comment on above: Performed By: #### P OCGLUC #### [facility] [address] [address] [address] Lindsay Jimenes Family Medicine Office/Clini c [...] 1 hour. Concerns/complaints: none Now working at [employer]. Believes she is developing bronchitis again, happens [...] Mouth: mucous membranes pink, moist and intact. [place] posterior oropharynx, no palatal inflammation, uvula midline, [...] Neurologic: Cranial nerves II-XII grossly intact. Skin: [place], warm and dry. No rashes, ulcerations, or [...] day(s), # 30 tab(s), Refills(s) 0, Pharmacy: [facility] 1985, 170, cm, 11/10/21 16:30:00 EDT, [...] day(s), # 30 cap(s), Refills(s) 0, Pharmacy: [facility], 170, cm, 11/10/21 16:30:00 EDT, Height/Length Dosing, 110.6, kg, 11/10/21 16:30:00 EDT, Weight Dosing predniSONE, 40 mg = 2 tab(s), Oral, Daily, with food or milk, X 5 day(s), # 10 tab(s), Refills(s) 0, Pharmacy: [facility], 170, cm, 11/10/21 16:30:00 EDT, Height/Length Dosing, 110.6, kg, 11/10/21 16:30:00 EDT, Weight Dosing 3. BMI 38.0-38.9,adult (Z68.38: Body mass index [BMI] 38.0-38.9, adult) The standard range for ages 18 and older is >=18.5 and < 25 kg/m2. Your BMI today was above this range, this f (more content not included)... Normal [facility] Comment on above: Result Comment: Elec tronically [...] of your throat. ? Inserting the swab long term inside your nose, to the middle front [...] 08/20/2019 Document Revised: 09/17/2019 Document Reviewed: 08/20/2019 [employer] Patient Education ? 2019 [employer]. Nutrition BMI for Adults Body mass index (BMI) is a number that is calculated from a person's weight and height. BMI may help to estimate how much of a person's weight is composed of fat. BMI can help identify those who may be at higher r (more content not included)... Normal [facility] Family Medicine Office/Clini c Noteon 10-06-2021 Family [...] Neurologic: Cranial nerves II-XII grossly intact. Skin: [place], warm and dry. No rashes, excessive bruising, [...] day(s), # 30 tab(s), Refills(s) 0, Pharmacy: [facility], 170, cm, 10/06/21 16:26:00 [...] day(s), # 30 tab(s), Refills(s) 0, Pharmacy: [facility], 170, cm, 10/06/21 16:26:00 EDT, Height/Length Dosing, 114.3, kg, 08/0... 4. Obesity (E66.9: Obesity, unspecified) See #1. Follow-up With When Contact Information Brett KENDALL, Rafaela Gatica Within 1 month [address] [place] [address]- [phone] Additional Instructions: Patient Education Obesity, Adult Exercising [...] 03/30 (more content not included)... Normal [facility] Comment on above: Result Comment: [...] ovarian syndrome (PCOS). ? Binge-eating disorder. ? [place] syndrome. ? Taking certain medicines, such as [...] food choices, such as grocery stores and oneforty' markets. What are the signs or symptoms? [...] 0?1 drink (more content not included)... Normal [facility] Family Medicine Office/Clini c Noteon 08-04-2021 Family [...] the Bromfed. These prescriptions were sent to [facility]. She can take the antibiotic from the dentist in addition to the medications that I prescribed. Alen can take Tylenol for her headaches. If things worsen, we can see her again for a follow-up. This visit was conducted via two-way, real-time interactive video communications from my office using [employer] due to the restrictions of the COVID-19 pandemic. No physical exam was conducted other than those areas of the body visible to telecommunications with the patient located at [address] [place] [phone], with no one else in attendance. If [...] Jaison Frederick to record this visit. NEHA yard specialist and provider reviewed before signing. NEHA: [place] Follow-up No qualifying data available Problem List/Past Medical History Ongoing Allergic rhinitis Anxiety and dep (more content not included)... Normal [facility] Comment on above: Result Comment: Elec tronically Signed By: Nir DALAL, Anahy Gatica\.br\Date and Time Signed: 08/04/21 11:24 EDT Vital Signs Date Time Vital Sign Value Performing Clinician Facility 05-16-2022 16:29-0400 Body height 170.18 cm Shelia Gomez ENOCH Work Phone: [facility] Work Phone: 05-16-2022 16:29-0400 Body mass index (BMI) [Ratio] 36 kg/m2 Shelia Gomez ENOCH Work Phone: [facility] Work Phone: 05-16-2022 16:29-0400 Body surface area Derived from formula 2.1 m2 Shelia Gomez ENOCH Work Phone: [facility] Work Phone: 05-16-2022 16:29-0400 Body weight 104.24 kg Shelia Gomez ENOCH Work Phone: [facility] Work Phone: 05-16-2022 16:29-0400 Diastolic blood pressure 82 mm[Hg] Shelia Ray [employer]IP[employer] Work Phone: [facility] Work Phone: 05-16-2022 16:29-0400 Heart rate 82 /min Shelia Ray [employer]LOADING EQUIP[employer] TENDER Work Phone: [facility] Work Phone: 05-16-2022 16:29-0400 Inhaled oxygen concentration 21 % Shelia Ray [employer] UNLOADING EQUIPMENT TENDER Work Phone: [facility] Work Phone: 05-16-2022 16:29-0400 Inhaled oxygen flow rate 0 L/min Shelia Ray [employer]LOADING EQUIPMENT TENDER Work Phone: [facility] Work Phone: 05-16-2022 16:29-0400 Respiratory rate 18 /min Shelia Ray [employer] EQUIP[employer] TENDER Work Phone: [facility] Work Phone: 05-16-2022 16:29-0400 SaO2% (BldA) [Mass fraction] 97 % Shelia Ray [employer] EQUIP[employer] TENDER Work Phone: [facility] Work Phone: 05-16-2022 16:29-0400 Systolic blood pressure 118 mm[Hg] Shelia Ray [employer] UNLOADING EQUIP[employer] TENDER Work Phone: [facility] Work Phone: 11-10-2021 16:26-0400 Blood Pressure Location Rafaela Brett [facility] 11-10-2021 16:26-0400 Body temperature 97.7 [degF] Rafaela West [facility] 11-10-2021 16:26-0400 Diastolic blood pressure 78 mm[Hg] Rafaela West [facility] 11-10-2021 16:26-0400 Heart rate 93 /min Rafaela West [facility] 11-10-2021 16:26-0400 SaO2% (BldA) [Mass fraction] 98 % Rafaela West [facility] 11-10-2021 16:26-0400 Systolic blood pressure 136 mm[Hg] Rafaela West [facility] 10-06-2021 16:21-0400 Blood Pressure Location Rafaela West [facility] 10-06-2021 16:21-0400 Body temperature 97.52 [degF] Rafaela West [facility] 10-06-2021 16:21-0400 Diastolic blood pressure 66 mm[Hg] Rafaela West [facility] 10-06-2021 16:21-0400 Heart rate 83 /min Rafaela West [facility] 10-06-2021 16:21-0400 SaO2% (BldA) [Mass fraction] 98 % Rafaela West [facility] 10-06-2021 16:21-0400 Systolic blood pressure 128 mm[Hg] Rafaela West [facility] Encounters Encounter Date Encounter Type Care Provider Facility Start: 05-16-2022 End: 05-16-2022 Subsequent hospital visit by physician [facility] Start: 05-16-2022 End: 05-16-2022 [facility] visit, estab pt Maia Pageell RN RENAL Work Phone: [facility] Work Phone: Start: 05-16-2022 End: 05-16-2022 [facility] visit, estab pt Maia Pageell RN RENAL Work Phone: [facility] Work Phone: Start: 05-16-2022 End: 05-17-2022 ambulatory Gigi Carroll MD [facility] Start: 05-16-2022 End: 05-16-2022 Adult health examination Shelia Gomez ENOCH Work Phone: [facility] Work Phone: Start: 05-16-2022 End: 05-16-2022 [facility] visit new patient Shelia Gomez [employer]IP[employer] T[employer]ER Work Phone: [facility] Work Phone: Start: 05-16-2022 End: 05-16-2022 General Shelia Gomez CNP Work Phone: [facility] Work Phone: Start: 01-13-2022 End: 01-14-2022 ambulatory Rafaela West Facility:[facility] Start: 01-13-2022 End: 01-13-2022 Patient encounter procedure Rafaela West [facility] Start: 12-13-2021 End: 12-14-2021 ambulatory Rafaela West [facility] Start: 11-11-2021 End: 11-11-[address] DOCTOR MARMOLEJO Facility:[facility] Start: 11-10-2021 End: 11-11-2021 ambulatory Rafaela West Facility[facility] Start: 11-10-2021 End: 09-07-2022 Patient encounter procedure Rafaela West [facility] Start: 10-06-2021 End: 10-07-2021 ambulatory Rafaela West Facility:[facility] Start: 10-06-2021 End: 10-06-2021 Patient encounter procedure Rafaela West [facility] Start: 10-05-2021 ambulatory Anahy Loyola Facility:[facility] [place] Start: 09-28-2021 ambulatory Anahy Loyola Facility:[facility] Start: 07-26-2021 End: 07-26-2021 Off-Site Anahy Loyola [facility] Start: 07-26-2021 End: 07-27-2021 ambulatory Anahy Loyola [...] Start: 05-16-2022 Tonsillectomy and adenoidectomy Shelia Gomez [employer]ER Work Phone: Start: 05-16-2022 Viral screening Visit For: Screening Exam Infectious Diseases Viral Shelia Gomez [employer]ER Work Phone: Ligation of fallopia n tube Anahy Loyola Plan of Treatment Date Care Activity Detail Author Start: 09-23-2022 [facility] Start: 06-15-2022 [facility] Start: 05-16-2022 End: 05-16-2022 Patient education based on identified need [facility] offered active and supportive listening, validated emotions and feelings, and processed current stressors with relapsing and changes in mood. ~[facility] encouraged patient to utilize positive supports and coping skills. ~P praised patient for prioritizing their recovery. ~ [facility] Start: 05-16-2022 End: 05-16-2022 Patient education based on identified need [facility] Start: 10-04-2021 Influenza vaccination Flu vaccine (# 1) [facility] Start: 1998 DTaP/Tdap/Td vaccine (1 - Tdap) DTaP/Tdap/Td vaccine (1 - Tdap) [facility] Start: 1979 COVID-19 Vaccine (#1) COVID-19 Vacci ne (#1) [facility] End: 05-16-2022 Hepatitis C RNA, quantitative, PCR [facility] Phone: Comment on above: Once for 1 Occurrenc es starting 05/16/2022 until 05/16/2022 End: 05-16-2022 HIV RNA, Quantitative, PCR [facility] Phone: Comment on above: Once for 1 Occurrenc es starting 05/16/2022 until 05/16/2022 End: 05-16-2022 VDRL, QUANTITATIVE [facility] Phone: Comment on above: Once for 1 Occurrenc es starting 05/16/2022 until 05/16/2022 Immunizations Immunization Date Immunization Notes Care Provider Fa cility 01-18-2021 COVID-19, mRNA, LNP- S, PF, 100 mcg or 50 mcg dose Anahy Loyola [facility] Comment on above: Reason for Medicatio n: Prophylaxis 01-18-2021 influenza virus vaccine, unspecified formulation; Translations: [Fluzone PF Quadrivalent ] Anahy Loyola [facility] Comment on above: Reason for Medicatio n: Prophylaxis 03-30-2020 SARS-CoV-2 (COVID-19 ) mRNA-1273 vaccine Anahy Loyola [facility] 03-09-2020 SARS-CoV-2 (COVID-19 ) mRNA-1273 vaccine Anahy Loyola [facility] NEGATED: Highlighted row has not occurred!12-13-2021 influenza virus vaccine, unspecified formulation Rafaela West [facility] Payers Date Payer Category Payer Unknown [id number] 2014 Unknown [id number] 1979 Unknown [id number] 2.16.84 [id number] 1979 Unknown [id number] 2.16.84 [id number] 1979 Unknown [id number] 2.16.8 [id number] 1979 Unknown [id number] 2.16.8 [id number] 1979 Unknown [id number] 2.16.8 [id number] 1979 Unknown [id number] 2.16.8 40.1.453818.3.579.2.727 1979 Unknown [id number] 2.16.8 40.1.145753.3.579.2.727 1979 Unknown [id number] 2.16.8 [id number] 1979 Unknown [id number] 2.16.8 [id number] 1979 Unknown [id number] 2.16.8 40.1.924523.3.579.2.727 1979 Unknown [id number] 2.16. [id number] 1959 Unknown [id number] 1959 Unknown [id number] Unknown [id number] 2. [id number] Social History Date Type Detail Facility Start: 07-26-2021 End: 12-13-2021 Tobacco smoking status Never smoked tobacco (finding) [facility] Tobacco smoking status Never [facility] Sex Assigned At Female [facility] Assertion Details of drug misuse behavior (observable entity) [facility] Tobacco smoking status Unknown if ever smoked [facility] Work Phone: Start: 1980 Sex Assigned At Not on file HOWIE MENA [facility] Work Phone: Assertion Gender identity finding (finding) [facility] Assertion Exposure to poll ution (event) [facility] Assertion Finding of sexua l orientation (finding) [facility] NEGATED: Highlighted row Assertion Current drinker of alcohol (finding) [facility] NEGATED: Highlighted row Assertion Exposure to pollution (event) [facility] NEGATED: Highlighted row Assertion [facility] NEGATED: Highlighted row Assertion Contraception (finding) [facility] Functional Status Date Assessment Result Facility 11-10-2021 Functional Status N/A [facility] 10-06-2021 Functional Status N/A [facility] Mental Status Date Assessment Result Facility Cognitive function Oriented to t divya, place, and person Oriented to person, time and place (finding) [facility] Work Phone: Clinical Notes 10-06-2021 to 05-20-2022 Note Date & Type Note Facility 05-20-2022 Progress note Progress note Date 05/20/2022 Chart Update Last documented on 05/22/2022; 2:17 PM, Shelia Gomez CNP; [facility] Current Medication - None Past Medical/Surgical History [...] have been Abnormal [facility] [id number] Evaluation note Includes: Assessments for all patient encounters Findings Encounter Date Uncomplicated cocaine abuse BH Established Patie nt with Maia Cate RN RENAL 05/16/2022 Last Documented On 3 5:43PM ; [facility] Assessment of body mass index Open Acces s New Patient with Shelia Gomez [employer]ASS [employer]LOADING EQUIPMENT TENDER 05/16/2022 Last Documented On 3 5:11PM ; [facility] Diabetes Risk Test Score was three score 05/16/2022 Open Access New Patient with Shelia Gomez [employer]LOAD[employer] EQUIPMENT TENDER 05/16/2022 Last Documented On 3 5:11PM ; [facility] Exposure to STD Open Access New Patient with Chr josh Gomez [employer]LOADING EQUIPMENT TENDER 05/16/2022 Last Documented On 3 5:11PM ; [facility] Nicotine dependence Open Access New Patient with Shelia Gomez [employer] UNLOADING EQUIPMENT TENDER 05/16/2022 Last Documented On 3 5:11PM ; [facility] Screening for HIV Open Access New Patient with C maurice Gomez [employer]LOADING EQUIPMENT TENDER 05/16/2022 Last Documented On 3 5:11PM ; [facility] Vaping related disorder Open Access New Patient with Shelia Gomez [employer]LOADING EQUIPMENT TENDER 05/16/2022 Last Documented On 3 5:11PM ; [facility] Visit for: routine adult H&P with abnormal findings Open Access New Patient with Shelia Gomez [employer] UNLOADING EQUIPMENT TENDER 05/16/2022 Last Documented On 3 5:11PM ; [facility] Visit for: screening exam fo r viral diseases Open Access New Patient with Shelia Gomez [employer]LOADING EQUIPMENT TENDER 05/16/2022 Last Documented On 3 5:11PM ; [facility] Work Phone: 1(296) 626-438903-13-2023 Evaluation note Includes: Assessments for all patient encounters Findings Encounter Date Uncomplicated cocaine abuse BH Established Patie nt with Maia Pageell RN RENAL 05/16/2022 Last Documented On 3 5:43PM ; [facility] Assessment of body mass index Open Acces s New Patient with Shelia Gomez [employer] UNLOADING EQUIPMENT TENDER 05/16/2022 Last Documented On 3 10:10AM ; [facility] Diabetes Risk Test Score was three score 05/16/2022 Open Access New Patient with Shelia Gomez [employer] UNLOADING EQUIPMENT TENDER 05/16/2022 Last Documented On 3 10:10AM ; [facility] Exposure to STD Open Access New Patient with Chr josh Gomez [employer] UNLOADING EQUIPMENT TENDER 05/16/2022 Last Documented On 3 10:10AM ; [facility] Nicotine dependence Open Access New Patient with Shelia Ray [employer] UNLOADING EQUIPMENT TENDER 05/16/2022 Last Documented On 3 10:10AM ; [facility] Screening for HIV Open Access New Patient with C hristina Ray [employer] UNLOADING EQUIPMENT TENDER 05/16/2022 Last Documented On 3 10:10AM ; [facility] Vaping related disorder Open Access New Patient with Shelia Gomez [employer] UNLOADING EQUIPMENT TENDER 05/16/2022 Last Documented On 3 10:10AM ; [facility] Visit for: routine adult H&P with abnormal findings Open Access New Patient with Shelia Gomez [employer] UNLOADING EQUIPMENT TENDER 05/16/2022 Last Documented On 3 10:10AM ; [facility] Visit for: screening exam fo r viral diseases Open Access New Patient with hSelia Gomez [employer] UNLOADING EQUIPMENT TENDER 05/16/2022 Last Documented On 3 10:10AM ; [facility] Work Phone: 1(851) 939-375103-13-2023 Evaluation note Includes: Assessments for all patient encounters Findings Encounter Date Uncomplicated cocaine abuse BH Sera Watts nt with Maia VALLEJO 05/16/2022 Last Documented On 3 5:43PM ; [facility] Assessment of body mass index Open Acces s New Patient with Shelia Gomez [employer] UNLOADING EQUIPMENT TENDER 05/16/2022 Last Documented On 3 10:10AM ; [facility] Diabetes Risk Test Score was three score 05/16/2022 Open Access New Patient with Shelia Ray GLASS UNLOADING EQUIPMENT TENDER 05/16/2022 Last Documented On 3 10:10AM ; [facility] Exposure to STD Open Access New Patient with Chr josh Ray [employer]ASS UNLOADING EQUIPMENT TENDER 05/16/2022 Last Documented On 3 10:10AM ; [facility] Nicotine dependence Open Access New Patient with Shelia Gomez [employer] UNLOADING EQUIPMENT TENDER 05/16/2022 Last Documented On 3 10:10AM ; [facility] Screening for HIV Open Access New Patient with Rebekah Gomez [employer] UNLOADING EQUIPMENT TENDER 05/16/2022 Last Documented On 3 10:10AM ; [facility] Vaping related disorder Open Access New Patient with Shelia Gomez [employer] UNLOADING EQUIPMENT TENDER 05/16/2022 Last Documented On 3 10:10AM ; [facility] Visit for: routine adult H&P with abnormal findings Open Access New Patient with Shelia Gomez GLASS UNLOADING EQUIPMENT TENDER 05/16/2022 Last Documented On 3 10:10AM ; [facility] Visit for: screening exam fo r viral diseases Open Access New Patient with Shelia Gomez GLASS UNLOADING EQUIPMENT TENDER 05/16/2022 Last Documented On 3 10:10AM ; [facility] Work Phone: 1(290) 295-241803-13-2023 History general Narrative - Reported Includes: Medical History in patient's chart Description Last Updated History of anxiety disorder NOS 05/17/19 Last Documented On 3 10:10AM ; [facility] History of depression 05/16/2022 Last Documented On 3 10:10AM ; [facility] No previous hospitalizations 05/16/2022 Last Documented On 3 10:10AM ; [facility] Not planning to have a baby in the next 12 months 05/16/2022 Last Documented On 3 10:10AM ; [facility] Work Phone: 1(124) 768-496803-13-2023 History general Narrative - Reported Includes: Medical History in patient's chart Description Last Updated History of anxiety disorder NOS 05/17/19 Last Documented On 3 10:10AM ; [facility] History of depression 05/16/2022 Last Documented On 3 10:10AM ; [facility] No previous hospitalizations 05/16/2022 Last Documented On 3 10:10AM ; [facility] Not planning to have a baby in the next 12 months 05/16/2022 Last Documented On 3 10:10AM ; [facility] Work Phone: 1(961) 742-420203-13-2023 Progress note* Progress note Date Encounter Last Documented by 05/16/2022 BH Established Patient Last docu mented on 05/16/2022; 5:43 PM, Maia VALLEJO; [facility] Subjective BHP met with patient to discuss mood. Patient reports a history of anxiety, stating she was on prozac for almost a month but didn't like it. Patient reports she was at [facility] at that time and they were [...] at a time? was 0 No . [facility]03-13-2023 Progress note* Progress note Date Encounter Last Documented by 05/16/2022 Open Access New Patient Last doc umented on 05/18/2022; 10:10 AM, Shelia Gomez CNP; [facility] Chief Complaint The Chief Complaint is: Pt [...] load in March 2022 was completed at [facility] and was negative. 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 Was sober for 17 months, relapsed on 12/21/22, last use was approximately 4+ weeks ago - has not used recently because he doesn't have any money to buy drugs. Has a good support system and is planning [facility] the near future. Chlamydia in 2003, completed treatment and testing since that time has been negative. Declines routine screening labs and PAP - states she is originally from [place], [place] and will likely have completed when [...] 05/16/2022 04:29 pm BP-Sitting L118/82 mmHg Pulse Rate-Wixxfyt67 bpm Respiration Rate18 per min Lodhun17 in Zdmgjn722 lbs 12.8 oz Body Mass Index36 kg/m2 Body Surface Area2.1 m2 Oxygen Ksszrjlvfq21 % O2 DeviceNone (Room Air) GbQ057 % General Appearance: - Awake. - Alert. [...] VDRL Outside Labs/Microbiology: All 3 Urine Test Mbmzffyho-Dswqojtpq-Qfhpfzljwsj, BD Affirm EndCited Will call with test [...] to 48 Years Old (1 Point) [Pre-DM]. [facility]03-13-2023 Reason for referral (narrative)* Date Encounter Description Provider Reason for Referral 05/16/22 Established Patient Maia VALLEJO Referral To Mental Health Team [facility] Work Phone: 1(264) 116-488209-07-2022 Hospital Discharge instructions Patient Education 11/10/2021 17:07:32 [...] height. This can be done either in [place] or metric measurements. Note that charts are available to help you find your BMI quickly and easily without having to do these calculations yourself. To calculate your BMI in [place] measurements, your health care provider will: [...] medical problems. BMI can be measured using Sammarinese measurements or metric measurements. To interpret your [...] 11/01/2004 Document Revised: 02/02/2018 Document Reviewed: 01/03/2018 [employer] Patient Education 2020 [employer]. 11/10/2021 17:07:30 Viral Respiratory Infection Test Viral [...] back of your throat. Inserting the swab long term inside your nose, to the middle front [...] 08/20/2019 Document Revised: 09/17/2019 Document Reviewed: 08/20/2019 [employer] Patient Education 2020 [employer]. 11/10/2021 17:07:26 Health Maintenance, Female Health Maintenance, [...] 09/05/2011 Document Revised: 02/13/2019 Document Reviewed: 02/13/2019 [employer] Patient Education 2020 [employer]. Follow Up Care 10/06/2021 16:43:43 With:Rafaela West CNP Address: [address] [place] [address] [place] [address]- [phone] When:1 month [facility] 08-03-2022 Hospital Discharge instructions Patient [...] ?Hypothyroidism. ?Polycystic ovarian syndrome (PCOS). ?Binge-eating disorder. ?[place] syndrome. Taking certain medicines, such as steroids, [...] food choices, such as grocery stores and [employer] markets. What are the signs or symptoms? [...] and how much exercise you get. Take xrcn-uli-dnpflna and prescription medicines only as told by [...] 03/30/2005 Document Revised: 10/25/2018 Document Reviewed: 10/25/2018 [employer] Patient Education 2020 [employer] 10/06/2021 16:44:57 Exercising to Stay Healthy [...] exercise? Yard work, such as: ?Pushing a bottle label inspector. ?Raking and bagging leaves. Washing your car. [...] 03/25/2011 Document Revised: 02/02/2018 Document Reviewed: 01/11/2018 [employer] Patient Education 2020 [employer]. 10/06/2021 16:44:55 Healthy Eating Healthy Eating Following [...] soapy water. ?Keep raw meats separate from mhqlb-tc-lrj foods, such as fruits and vegetables. ?pulmonology physician, meat, poultry, and eggs to the recommended [...] include 1 slice of bread, 1 cup elxxq-gy-wjd cereal, 3 cups popcorn, or cup cooked [...] 06/04/2018 Document Revised: 06/04/2018 Document Reviewed: 06/04/2018 [employer] Patient Education 2020 [employer] 10/06/2021 16:44:54 BMI for Adults BMI [...] height. This can be done either in [place] or metric measurements. Note that charts are available to help you find your BMI quickly and easily without having to do these calculations yourself. To calculate your BMI in [place] measurements, your health care provider will: [...] medical problems. BMI can be measured using Sammarinese measurements or metric measurements. To interpret your [...] 11/01/2004 Document Revised: 02/02/2018 Document Reviewed: 01/03/2018 [employer] Patient Education 2020 [employer]. 10/06/2021 16:44:51 Health Maintenance, Female Health Maintenance, [...] 09/05/2011 Document Revised: 02/13/2019 Document Reviewed: 02/13/2019 [employer] Patient Education [employer]. Follow Up Care 09/28/2021 15:02:14 With:Rafaela West CNP Address: [address] [place] [address] [place] [address]- [phone] When:1 month [facility] Evaluation + Plan note No data available for this section [facility] Evaluation + Plan note Future Appointments Appointment Date:11/10/2021 04:20:00 PM Scheduled Provider:Rafaela West CNP Location:[facility] Appointment Type:[facility] Evaluation + Plan note Future Appointments Appointment Date:12/13/2021 05:00:00 PM Scheduled Provider:Rafaela West CNP Location:[facility] Appointment Type:[facility] History general Narrative - Reported Includes: Medical History in patient's chart No Medical History RecordedHealth [facility] Work Phone: History of Present illness Narrative History of Present Illness not supported for this document type No History of Present Illness RecordedHealth [facility] Work Phone: Hospital Discharge instructions No data available for this section [facility] Instructions Includes: Instructions for all patient encounters Education and Decision Aids were provided during visit for: BHP offered active and suppo rtive listening, validated emotions and feelings, and processed current stressors with relapsing and changes in mood. ~BHP encouraged patient to utilize positive supports and coping skills. ~BHP praised patient for prioritizing their recovery. ~ Last Documented On 3 5:43PM ; [facility] Discussed nutritional needs teach healthy choices including fruits and vegetables Last Documented On 3 4:35PM ; [facility] Patient education about a pr oper diet Last Documented On 3 4:35PM ; [facility] Discussed concerns about exe rcise : promote physical activity Last Documented On 3 4:35PM ; [facility] Not requesting contraception Last Documented On 3 4:35PM ; [facility] Work Phone: Instructions Includes: Instructions [...] ~ Last Documented On 3 5:43PM ; [facility] Discussed nutritional needs teach healthy choices including fruits and vegetables Last Documented On 3 4:35PM ; [facility] Patient education about a pr oper diet Last Documented On 3 4:35PM ; [facility] Discussed concerns about exe rcise : promote physical activity Last Documented On 3 4:35PM ; [facility] Not requesting contraception Last Documented On 3 4:35PM ; [facility] Work Phone: Instructions Includes: Instructions [...] ~ Last Documented On 3 5:43PM ; [facility] Discussed nutritional needs teach healthy choices including fruits and vegetables Last Documented On 3 4:35PM ; [facility] Patient education about a pr oper diet Last Documented On 3 4:35PM ; [facility] Discussed concerns about exe rcise : promote physical activity Last Documented On 3 4:35PM ; [facility] Not requesting contraception Last Documented On 3 4:35PM ; [facility] Work Phone: Patient problem outcome Narrative Includes: Evaluations & Outcomes for active Goals No Outcomes [facility] Work Phone: Progress note No data available for this section [facility] Review of systems Narrative - Reported Review of Systems not supported for this document type No Review of Systems [facility] Work Phone: Summary Purpose Family History Description Last Updated Maternal history of depression 3 Last Documented On 3 10:10AM ; [facility] Sororal history of depression 05/16/2022 Sororal history of psychiatric disorders 05/16/2022 Maternal history of psychiatric disorder s 05/16/2022 Maternal history of respiratory disorder 05/16/2022 Maternal history of systemic hypertensio n 05/16/2022 Description Last Updated Maternal history of depression 3 Last Documented On 3 10:10AM ; [facility] Sororal history of depression 05/16/2022 Sororal history [...] content) Personnel Name: Rafaela West CNP Address: [address] [place] [address], [facility] [place] [address] Personnel Name: Rafaela West CNP Address: [address], [place] [address] Personnel Name: Rafaela West CNP Address: Address: [place] [address] INFORMATION SOURCE (unrecogn ized section and content) DATE CREATED AUTHOR 11/15/2021 [facility] DATE CREATED AUTHOR AUTHOR'S ORGANIZ ATION 01/14/2022 [facility] DATE CREATED AUTHOR AUTHOR'S ORGANIZ ATION 05/17/2022 [facility] - [facility] DATE CREATED AUTHOR AUTHOR'S ORGANIZ ATION 05/19/2022 [facility] FOR RECORDS PERTAINING TO PATIENTS [...] BE BASED ON THE PRIMARY CLINICAL RECORDS. [employer] [facility]. provides no warranty or guarantee of the accuracy or completeness of information in this document.
[2023-05-08 12:39] LABS: HCG Qualitative NEGATIVE (NEGATIVE)
[2023-05-08] MEDS: LACTATED RINGER'S SOLUTION 1,000 ML 50 ML IV (12:45)
[2023-05-08] MEDS: CEFAZOLIN SODIUM/DEXTROSE,ISO 2 GM/50 ML PIGGYBACK IV (12:46)
--- NOTE | 2023-05-08 13:07 | PM.ORPRC ---
Procedure Note Date of procedure: 05/08/23 Pre-op diagnosis: Right knee medial meniscus tear Post-op diagnosis: other (Right knee medial and lateral meniscus tears, chondromalacia) Procedure: Procedure: Right knee arthroscopy, partial medial meniscectomy and partial lateral meniscectomy Surgeon: Warner Liu MD Anesthesia: General Estimated Blood Loss: minimal Indications for surgery: The patient has had knee pain consistent with the above diagnosis. Treatment options were discussed as well as risks and benefits and the patient elected to proceed with the above surgery. Operative Procedure: After informed consent was obtained the patient received intravenous antibiotics and was brought to the operating room. The patient was placed in the supine position. General anesthetic was administered. Exam under anesthesia of the right knee revealed 0 - 120 degrees of motion and no ligamentous instability. The leg was next prepped and draped in the usual sterile fashion. Diagnostic arthroscopy was next performed through the standard anterior portals, medial and lateral to the patellar tendon. Findings included intact articular cartilage in the patellofemoral compartment. There was mild synovitis within the suprapatellar pouch. In the medial compartment the posterior horn medial meniscus tear was flipped anterior to the joint. This was in the white white zone. Using a combination of arthroscopic biters and a shaver a 90% meniscectomy was performed back to stable edge. There were are unstable articular cartilage flaps of the medial femoral condyle which was debrided with arthroscopic shaver back to a stable edge. The area of grade III chondromalacia was 1 cm x 1.5 cm in the central weightbearing portion of the medial femoral condyle. Articular cartilage of the medial plateau was intact. In the notch there was not synovitis without ACL or PCL tears. In the lateral compartment there was a small mid body tear of the lateral meniscus which was debrided the arthroscopic shaver back to stable edge. A less than 5% meniscectomy was performed. There is diffuse grade II chondromalacia of the lateral tibial plateau. Articular cartilage lateral femoral condyle was intact. The knee joint was drained of arthroscopy fluid. Portals were closed absorbable suture. The joint was infiltrated with 20 mL 0.5% Marcaine plain combined with 10 mL 1% lidocaine with epinephrine. Steri-Strips and a sterile dressing were placed. Patient was awakened and brought to the recovery room in stable condition. There were no intraoperative or immediate postoperative complications. Anesthesia: General-LMA Surgeon: Hari Liu Estimated blood loss (mL): 5 Pathology: none sent Condition: stable Disposition: PACU
[2023-05-08] MEDS: BUPIVACAINE HCL 0.5% PF 50 MG/10 ML VIAL 20 ML INJ (13:58)
[2023-05-08] MEDS: LIDOCAINE HCL 1%-EPINEPHRINE 1:100,000 10 ML MDV INJ (13:59)
[2023-05-08] MEDS: LACTATED RINGER'S SOLUTION 1,000 ML 125 ML IV (14:00)
[2023-05-08] MEDS: HYDROMORPHONE HCL 0.5 MG/0.5 ML SYRINGE IV (14:15)
== END 2023-05-08 15:30 | disposition home or self-care (01) ==
PROVIDERS: Visit Provider Orthopaedic Surgery
PROC: (CPT 1400; principal; 2023-05-08 13:20)
DX: S83.211A Bucket-handle tear of medial meniscus, current injury, right knee, initial encounter (principal); S83.251A Bucket-handle tear of lateral meniscus, current injury, right knee, initial encounter; M94.261 Chondromalacia, right knee; F32.A Depression, unspecified; F41.9 Anxiety disorder, unspecified; F17.290 Nicotine dependence, other tobacco product, uncomplicated; X58.XXXA Exposure to other specified factors, initial encounter
CPT/HCPCS: 29880; 36415; 84703; J1094; J1170; J2704

== ENCOUNTER 2023-05-24 09:44 | Outpatient (RCR) | payer BC, SELFPAY | END 2023-06-08 13:33 | disposition home or self-care (01) | LOC: PT 09:44 | PROVIDERS: Visit Provider Orthopaedic Surgery | DX: S83.241D Other tear of medial meniscus, current injury, right knee, subsequent encounter (principal); S83.211D Bucket-handle tear of medial meniscus, current injury, right knee, subsequent encounter | CPT/HCPCS: 97110; 97112; 97162 ==

== ENCOUNTER 2023-07-13 12:35 | Emergency (ER) | payer BC, SELFPAY ==
[2023-07-13 12:41] VITALS: BP 154/100; PULSE 99; TEMP 36.8; O2SAT 98; BMI 36.0
--- NOTE | 2023-07-13 12:50 | XR_ITS ---
The [address] [address] Patient Name: ALEN TURNER MRN: [id number] date: 1980 Sex: F Assigned Patient Location: ER Current Patient Location: ER Accession/Order Number: [id number] Exam Date: 07/13/2023 12:55 Report Date: 07/13/2023 13:37 At the request of: KWABENA GONZALEZ Procedure: XR lumbar spine 2-3V EXAMINATION: XR lumbar spine 2-3V HISTORY: Fall 2 weeks ; left side lumbar pain COMPARISON: r FINDINGS: BONES: No significant spondylosis, scoliosis, fracture, or visible bony lesion. DISC SPACES: Mild to moderate narrowing L5-S1. PARASPINOUS: 6 x 2 mm calcification projecting over left kidney. OTHER: Fallopian tube clips within right side of pelvis. A second fallopian tube clips is seen at level of right iliac brim. XR/XR lumbar spine 2-3V IMPRESSION: 1. Mild to moderate degenerative disc disease L5-S1. 2. No appreciable acute abnormality. 3. Possible left nephrolithiasis. 4. Suspect dislodgment of one of the fallopian tube clips. Electronically authenticated by: URSZULA ELIZONDO Date: 07/13/2023 13:37
--- NOTE | 2023-07-13 12:52 | ED_ITS ---
HPI HPI - Fall General Chief Complaint: Urogenital-Female Stated Complaint: FALL/BACK PAIN Time Seen by Provider: 07/13/23 12:47 Source: patient Mode of arrival: walk-in History of Present Illness HPI Narrative: 43-year-old female presents for pain to her left lower back. She was hiking 2 weeks ago and lost her balance and fell and landed on this area. She also has pressure with urination. No gross hematuria. She does not have upper back pain or right-sided back pain. The pain is moderate and she has noticed bruising and some swelling. Related Data Home Medications ?Medication ?Instructions ?Recorded ?Confirmed acetaminophen 500 mg tablet 1,000 mg PO Q6H PRN pain 05/08/23 05/08/23 (Tylenol Extra Strength) Previous Rx's ?Medication ?Instructions ?Recorded ibuprofen 800 mg tablet 800 mg PO Q8H PRN pain #20 tabs 04/17/23 nitrofurantoin 100 mg PO BID 7 days #14 caps 07/13/23 monohydrate/macrocrystals 100 mg capsule (Macrobid) Allergies Allergy/AdvReac Type Severity Reaction Status Date / Time No Known Drug Allergies Allergy Verified 05/02/23 10:09 Opioid HPI Opioid Management Most Recent Pain and Opioid Data: Last Pain Scale 4 07/13/23 12:51 Review of Systems ROS Narrative A ten point review of systems is negative except as noted above. [facility] Medical History (Updated 07/13/23 @ 13:49 by Timur Nicolas MD) Bucket-handle tear of medial meniscus of right knee as current injury ?S83.211A - Bucket-handle tear of medial meniscus, current injury, right knee, initial encounter (ICD-10) Depression ?F32.A - Depression, unspecified (ICD-10) Anxiety ?F41.9 - Anxiety disorder, unspecified (ICD-10) Electronic cigarette use ?Z78.9 - Other specified health status (ICD-10) Migraine ?G43.909 - Migraine, unspecified, not intractable, without status migrainosus (ICD-10) Medial meniscus tear ?S83.249A - Other tear of medial meniscus, current injury, unspecified knee, initial encounter (ICD-10) Surgical History (Updated 05/08/23 @ 12:32 by Ivon Rodriguez) H/O tubal ligation ?Z98.51 - Tubal ligation status (ICD-10) History of tonsillectomy and adenoidectomy ?Z90.89 - Acquired absence of other organs (ICD-10) History of dilation and curettage ?Z98.890 - Other specified postprocedural states (ICD-10) History of dilation and curettage ?Z98.890 - Other specified postprocedural states (ICD-10) Family History (Updated 05/02/23 @ 10:15 by Halie Hutchins NP) Other Family history of hypertension Family history of myocardial infarction Family history of stroke Social History (Updated 05/02/23 @ 10:11 by Halie Hutchins NP) Within the past year, how often did you have a drink containing alcohol: never Score interpretation: A score less than 3 is consistent with normal alcohol consumption. Smoking status: Current some day smoker Do you use any of these nicotine containing products: vaping products Non-prescribed substance use: denies use Previous occupational history: Factory Highest level of school completed/degree received: high school graduate Exam Narrative Exam Narrative: Nurses note and vital signs reviewed and patient is not hypoxic. General: The patient appears well and in no apparent distress. Patient is resting comfortably on cart, sitting up. Skin: Warm, dry, no pallor noted. There is no rash noted. Head: Normocephalic, atraumatic Eye: Normal conjunctiva, no drainage Ears, Nose, Mouth, and Throat: oral mucosa is moist. Nares patent. Cardiovascular: Regular Rate and Rhythm Respiratory: Patient is in no distress, no accessory muscle use, lungs are clear to auscultation, no wheezing, rales or rhonchi Back: There is bruising in the left lower back and some mild swelling consistent with hematoma GI: Soft and nontender Musculoskeletal: The patient has no evidence of calf tenderness, no pitting edema, symmetrical pulses noted bilaterally Neurological: A&O, normal speech Psychiatric: Cooperative Constitutional Vital Signs, click to edit/add: Last Vital Signs Temp 98.3 F 07/13/23 12:41 Pulse 99 H 07/13/23 12:41 Resp 16 07/13/23 12:41 BP 154/100 H 07/13/23 12:41 Pulse Ox 98 07/13/23 12:41 O2 Del Method Room Air 07/13/23 12:41 Course Vital Signs Vital signs: Vital Signs Temperature 98.3 F 07/13/23 12:41 Pulse Rate 99 H 07/13/23 12:41 Respiratory Rate 16 07/13/23 12:41 Blood Pressure 154/100 H 07/13/23 12:41 Pulse Oximetry 98 07/13/23 12:41 Oxygen Delivery Method Room Air 07/13/23 12:41 Temperature 98.3 F 07/13/23 12:41 Pulse Rate 99 H 07/13/23 12:41 Respiratory Rate 16 07/13/23 12:41 Blood Pressure 154/100 H 07/13/23 12:41 Pulse Oximetry 98 07/13/23 12:41 Oxygen Delivery Method Room Air 07/13/23 12:41 MDM - Fall MDM Narrative Medical decision making narrative: Urinary tract infection is identified and she is prescribed Macrobid. Her test is negative. X-ray findings were discussed with the patient including the dislodgment of the fallopian tube clip. She does not have a sales representative health insurance but referral was made. Treatment diagnosis and follow-up were discussed with the patient. Differential Diagnosis Differential diagnosis: Likely other (UTI, back contusion, lumbar fracture) Lab Data Attestation: I reviewed the patient's lab results. Labs: Lab Results 07/13/23 Range/Units 12:51 Urine Color Lt. yellow (YELLOW) Urine Clarity Sl cloudy (CLEAR) Urine pH 6.0 (5.0-9.0) Ur Specific [place] 1.025 (1.005-1.025) Urine Protein Trace (NEG/TRACE) mg/dL Urine Glucose (UA) Negative (NEGATIVE) mg/dL Urine Ketones Negative (NEGATIVE) mg/dL Urine Occult Blood Small A (NEGATIVE) Urine Nitrite Negative (NEGATIVE) Urine Bilirubin Negative (NEGATIVE) Urine Urobilinogen 0.2 (0.2-1.0) EU/dL Ur Leukocyte Esterase Small A (NEGATIVE) Urine RBC 5-10 A (0-2) #/HPF Urine WBC 20-50 A (NONE SEEN) #/HPF Ur Squamous Epith Cells Few A (NONE/RARE) #/LPF Urine Crystals None seen (None Seen) #/HPF Urine Bacteria Moderate A (NONE SEEN) #/HPF Urine Casts None seen (NONE SEEN) #/LPF Urine Mucus None seen (NONE SEEN) Urine HCG, Qual Negative (NEGATIVE) Imaging Data Lumbar x-ray: Radiologist's impression: ITS Impressions Lumbar Spine X-Ray 07/13/23 12:50 IMPRESSION: 1. Mild to moderate degenerative disc disease L5-S1. 2. No appreciable acute abnormality. 3. Possible left nephrolithiasis. 4. Suspect dislodgment of one of the fallopian tube clips. Electronically authenticated by: URSZULA ELIZONDO Date: 07/13/2023 13:37 Discharge Plan Discharge Stand Alone Forms: Portal Instructions Chief Complaint: Urogenital-Female Clinical Impression: Urinary tract infection, Lumbar contusion Patient Disposition: Home, Self-Care Time of Disposition Decision: 13:49 Condition: Good Mode of Transportation: Private Vehicle Prescriptions / Home Meds: New nitrofurantoin monohyd/m-cryst [Macrobid] 100 mg capsule 100 mg PO BID 7 Days Qty: 14 0RF Rx Instructions: must administer with a meal/food No Action acetaminophen [Tylenol Extra Strength] 500 mg tablet 1,000 mg PO Q6H PRN (Reason: pain) ibuprofen 800 mg tablet 800 mg PO Q8H PRN (Reason: pain) Qty: 20 0RF Print Language: Cape Verdean Instructions: Urinary Tract Infection in Women (ED), Contusion in Adults (ED) Referrals: Justyn De Souza DO [Physician] - 1 week DONALD PAGAN [Primary Care Provider] - 1 week
[2023-07-13 13:15] LABS: Bilirubin Urine NEGATIVE (NEGATIVE); Blood Urine SMALL (NEGATIVE); Clarity Urine SL CLOUDY (CLEAR); Color Urine LT. YELLOW (YELLOW); Glucose Urine UA NEGATIVE (NEGATIVE); Ketones Urine NEGATIVE (NEGATIVE); Leukocyte Esterase Urine SMALL (NEGATIVE); Nitrite Urine NEGATIVE (NEGATIVE); Protein Urine TRACE mg/dL (NEG/TRACE); Specific Gravity Urine 1.025 (1.005-1.025); Urobilinogen Urine 0.2 EU/dL (0.2-1.0)
[2023-07-13 13:19] LABS: HCG Qualitative Urine* NEGATIVE (NEGATIVE)
[2023-07-13 13:31] LABS: Bacteria Urine MODERATE #/HPF (NONE SEEN); Mucus Urine NONE SEEN (NONE SEEN)
[2023-07-13 13:32] LABS: Cast Seen? NONE SEEN #/LPF (NONE SEEN); Crystals Seen? None Seen #/HPF (None Seen); Squamous Epithelial Cell Urine FEW #/LPF (NONE/RARE); WBC Urine 20-50 #/HPF (NONE SEEN)
== END 2023-07-13 14:01 | disposition home or self-care (01) ==
PROVIDERS: Emergency Provider Emergency Medicine; PCP Nurse Practitioner
DX: N39.0 Urinary tract infection, site not specified (principal); S30.0XXA Contusion of lower back and pelvis, initial encounter; W19.XXXA Unspecified fall, initial encounter; F32.A Depression, unspecified; F41.9 Anxiety disorder, unspecified; Z98.51 Tubal ligation status; Z98.890 Other specified postprocedural states; F17.290 Nicotine dependence, other tobacco product, uncomplicated
CPT/HCPCS: 72100; 81001; 84703; 99284

== ENCOUNTER 2024-08-29 17:18 | Emergency (ER) | payer BC, OTHER, SELFPAY ==
[2024-08-29 17:20] VITALS: BP 157/102; PULSE 73; TEMP 36.5; O2SAT 98; BMI 39.9
--- NOTE | 2024-08-29 17:32 | XR_ITS ---
The [place] [address] Patient Name: ALEN TURNER MRN: [id number] date: 1980 Sex: F Assigned Patient Location: ED.MAIN Current Patient Location: ED.MAIN Accession/Order Number: [id number] Exam Date: 08/29/2024 18:30 Report Date: 08/29/2024 18:31 At the request of: KWABENA GONZALEZ MD Procedure: XR lumbar spine 2-3V 2 views lumbar spine COMPARISON: 07/13/2023 INDICATION: Atraumatic pain FINDINGS: Lumbar vertebral heights maintained. Iktw-tm-[id number] intervertebral space narrowing L5-S1. Sqqm-oe-wwiyzaai facet arthropathy L4-S1, greatest L5-S1. XR/XR lumbar spine 2-3V IMPRESSION: Degenerative changes notably lumbosacral junction. No acute fracture or malalignment. Impression dictated by: Yunior Henning M.D. 08/29/2024 6:31 PM Dictation Location: [place] [address] Electronically authenticated by: [id number] Y Date: 08/29/2024 18:31
--- NOTE | 2024-08-29 17:33 | ED_ITS ---
HPI HPI - General Adult General Chief complaint: Back Pain/Injury Stated complaint: BACK PAIN Time Seen by Provider: 08/29/24 17:19 Source: patient Mode of arrival: walk-in History of Present Illness HPI narrative: 44-year-old female presents for left lower back pain. She has a history of degenerative disc disease and over the past 3 days she has had increased pain. No weakness or numbness or dysuria or hematuria. She states her provider ordered an MRI but it has not been scheduled yet. The pain is moderate to severe and worse when she moves. Related Data Home Medications ?Medication ?Instructions ?Recorded ?Confirmed amlodipine 5 mg tablet 5 mg PO DAILY 08/29/2408/29 escitalopram oxalate 5 mg tablet 5 mg PO DAILY 5 08/29/24 meloxicam 15 mg tablet 15 mg PO DAILY 08/29/2408/05 Previous Rx's ?Medication ?Instructions ?Recorded acetaminophen 300 mg-codeine 30 mg 1 tab PO Q6H PRN pa in 5 days #20 08/29/24 tablet tabs ciprofloxacin HCl 250 mg tablet 250 mg PO BID #14 tabs 08/29/24 (Cipro) methocarbamol 500 mg tablet 500 mg PO Q8H PRN pain #20 tabs 08/29/24 Allergies Allergy/AdvReac Type Severity Reaction Status Date / Time No Known Drug Allergies Allergy Verified 05/02/23 10:09 Opioid HPI Opioid Management Most Recent Opioid Data: Last Pain Scale 4 07/13/23, 12:51 Review of Systems ROS Narrative A ten point review of systems is negative except as noted above. [facility] Medical History (Updated 08/29/24 @ 18:41 by Timur Nicolas MD) Bucket-handle tear of medial meniscus of right knee as current injury ?S83.211A - Bucket-handle tear of medial meniscus, current injury, right knee, initial encounter (ICD-10) Depression ?F32.A - Depression, unspecified (ICD-10) Anxiety ?F41.9 - Anxiety disorder, unspecified (ICD-10) Electronic cigarette use ?Z78.9 - Other specified health status (ICD-10) Migraine ?G43.909 - Migraine, unspecified, not intractable, without status migrainosus (ICD-10) Medial meniscus tear ?S83.249A - Other tear of medial meniscus, current injury, unspecified knee, initial encounter (ICD-10) Surgical History (Updated 05/08/23 @ 12:32 by Ivon Rodriguez) H/O tubal ligation ?Z98.51 - Tubal ligation status (ICD-10) History of tonsillectomy and adenoidectomy ?Z90.89 - Acquired absence of other organs (ICD-10) History of dilation and curettage ?Z98.890 - Other specified postprocedural states (ICD-10) History of dilation and curettage ?Z98.890 - Other specified postprocedural states (ICD-10) Family History (Updated 05/02/23 @ 10:15 by Halie Hutchins NP) Other Family history of hypertension Family history of myocardial infarction Family history of stroke Social History (Updated 05/02/23 @ 10:11 by Halie Hutchins NP) Within the past year, how often did you have a drink containing alcohol: never Score interpretation: A score less than 3 is consistent with normal alcohol consumption. Smoking status: Current some day smoker Do you use any of these nicotine containing products: vaping products Non-prescribed substance use: denies use Previous occupational history: Factory Highest level of school completed/degree received: high school graduate Little interest or pleasure in doing things: not at all Feeling down, depressed, or hopeless: not at all Exam Narrative Exam Narrative: Nurses note and vital signs reviewed and patient is not hypoxic. General: The patient appears well and in no apparent distress. Patient is resting comfortably on cart. Skin: Warm, dry, no pallor noted. There is no rash noted. Head: Normocephalic, atraumatic Eye: Normal conjunctiva, no drainage Ears, Nose, Mouth, and Throat: oral mucosa is moist. Nares patent. Cardiovascular: Regular Rate and Rhythm Respiratory: Patient is in no distress, no accessory muscle use, lungs are clear to auscultation, no wheezing, rales or rhonchi Back: No bruise or rash. Attention is given to the left lower back and there is no focal area of tenderness to palpation. No erythema. GI: Soft and nontender Musculoskeletal: The patient has no evidence of calf tenderness, no pitting edema, symmetrical pulses noted bilaterally Neurological: A&O, normal speech. Lower extremity strength intact and symmetric Psychiatric: Cooperative Constitutional Vital Signs, click to edit/add: Last Vital Signs Temp 97.7 F 08/29/24 17:20 Pulse 73 08/29/24 17:20 Resp 18 08/29/24 17:20 BP 157/102 H 08/29/24 17:20 Pulse Ox 98 08/29/24 17:20 O2 Del Method Room Air 08/29/24 17:20 Course Vital Signs Vital signs: Vital Signs Temperature 97.7 F 08/29/24 17:20 Pulse Rate 73 08/29/24 17:20 Respiratory Rate 18 08/29/24 17:20 Blood Pressure 157/102 H 08/29/24 17:20 Pulse Oximetry 98 08/29/24 17:20 Oxygen Delivery Method Room Air 08/29/24 17:20 Temperature 97.7 F 08/29/24 17:20 Pulse Rate 73 08/29/24 17:20 Respiratory Rate 18 08/29/24 17:20 Blood Pressure 157/102 H 08/29/24 17:20 Pulse Oximetry 98 08/29/24 17:20 Oxygen Delivery Method Room Air 08/29/24 17:20 Medical Decision Making MDM Narrative Medical decision making narrative: Lumbar films showed no acute findings. UTI is identified on her urinalysis. She is prescribed Cipro as well as Tylenol 3 and Robaxin. Treatment diagnosis and follow-up were discussed with the patient. Differential Diagnosis Differential Diagnosis: Degenerative disc disease, compression fracture, UTI Lab Data Lab results reviewed: Yes I reviewed the patient's lab results Labs: Lab Results 08/29/24 Range/Units 17:36 Urine Color Lt. yellow (YELLOW) Urine Clarity Clear (CLEAR) Urine pH 6.5 (5.0-9.0) Ur Specific [place] 1.020 (1.005-1.025) Urine Protein Negative (NEG/TRACE) mg/dL Urine Glucose (UA) Negative (NEGATIVE) mg/dL Urine Ketones Negative (NEGATIVE) mg/dL Urine Occult Blood Trace-i (NEGATIVE) Urine Nitrite Positive A (NEGATIVE) Urine Bilirubin Negative (NEGATIVE) Urine Urobilinogen 0.2 (0.2-1.0) EU/dL Ur Leukocyte Esterase Small A (NEGATIVE) Urine RBC 0-2 (0-2) #/HPF Urine WBC 5-10 A (NONE SEEN) #/HPF Ur Squamous Epith Cells Moderate A (NONE/RARE) #/LPF Urine Crystals None seen (None Seen) #/HPF Urine Bacteria Moderate A (NONE SEEN) #/HPF Urine Casts None seen (NONE SEEN) #/LPF Urine Mucus None seen (NONE SEEN) Ur Culture Indicated? [place] [place] Data Lumbar x-ray: Radiologist's impression: ITS Impressions Lumbar Spine X-Ray 08/29/24 17:32 IMPRESSION: Degenerative changes notably lumbosacral junction. No acute fracture or malalignment. Impression dictated by: Yunior Henning M.D. 08/29/2024 6:31 PM Dictation Location: [employer] Electronically authenticated by: [id number] Y Date: 08/29/2024 18:31 Discharge Plan Discharge Chief Complaint: Back Pain/Injury Clinical Impression: Low back pain, Urinary tract infection Patient Disposition: Home, Self-Care Time of Disposition Decision: 18:41 Condition: Good Mode of Transportation: Private Vehicle Prescriptions / Home Meds: New acetaminophen-codeine 300-30 mg tablet 1 tab PO Q6H PRN (Reason: pain) 5 Days Qty: 20 0RF ciprofloxacin HCl [Cipro] 250 mg tablet 250 mg PO BID Qty: 14 0RF methocarbamol 500 mg tablet 500 mg PO Q8H PRN (Reason: pain) Qty: 20 0RF No Action amlodipine 5 mg tablet 5 mg PO DAILY escitalopram oxalate 5 mg tablet 5 mg PO DAILY meloxicam 15 mg tablet 15 mg PO DAILY Print Language: [place]ese Instructions: Urinary Tract Infection in Women (ED), Acute Low Back Pain (ED) Referrals: DONALD PAGAN [Primary Care Provider, PROOF PRESS OPERATOR] - 1 week
[2024-08-29] MEDS: KETOROLAC TROMETHAMINE 60 MG/2 ML VIAL IM (18:07)
[2024-08-29] MEDS: ORPHENADRINE 60 MG/2 ML VIAL IM (18:07)
[2024-08-29 18:16] LABS: Bilirubin Urine NEGATIVE (NEGATIVE); Blood Urine TRACE-I (NEGATIVE); Clarity Urine CLEAR (CLEAR); Color Urine LT. YELLOW (YELLOW); Glucose Urine UA NEGATIVE (NEGATIVE); Ketones Urine NEGATIVE (NEGATIVE); Leukocyte Esterase Urine SMALL (NEGATIVE); Nitrite Urine POSITIVE (NEGATIVE); Protein Urine NEGATIVE (NEG/TRACE); Urobilinogen Urine 0.2 EU/dL (0.2-1.0); pH Urine 6.5 (5.0-9.0)
[2024-08-29 18:23] LABS: Bacteria Urine MODERATE #/HPF (NONE SEEN); Cast Seen? NONE SEEN #/LPF (NONE SEEN); Crystals Seen? None Seen #/HPF (None Seen); Mucus Urine NONE SEEN (NONE SEEN); RBC Urine 0-2 #/HPF (0-2); Squamous Epithelial Cell Urine MODERATE #/LPF (NONE/RARE); Urine Culture Indicated YES-FRMC
[2024-08-29 19:02] VITALS: BP 160/86
== END 2024-08-29 19:03 | disposition home or self-care (01) ==
PROVIDERS: Emergency Provider Emergency Medicine; PCP Nurse Practitioner
DX: N39.0 Urinary tract infection, site not specified (principal); M54.50 Low back pain, unspecified; Z98.51 Tubal ligation status; F17.290 Nicotine dependence, other tobacco product, uncomplicated
CPT/HCPCS: 72100; 81001; 87086; 87088; 87186; 96372; 99285; J1885; J2360

== ENCOUNTER 2024-09-16 08:40 | Outpatient (OUT) | payer BC, OTHER, SELFPAY ==
--- NOTE | 2024-09-16 08:42 | MR_ITS ---
The [address] [address] Patient Name: ALEN TURNER MRN: [id number] date: 1980 Sex: F Assigned Patient Location: MRI Current Patient Location: MRI Accession/Order Number: [id number] Exam Date: 09/16/2024 09:52 Report Date: 09/16/2024 10:06 At the request of: DONALD PAGAN Procedure: MR lumbar spine wo con MRI LUMBAR SPINE WITHOUT CONTRAST COMPARISON: Plain films 08/29/2024 CLINICAL DATA: Acute on chronic back pain worsening over the past 2 months. Radiculopathy. Multiecho imaging in the axial and sagittal plane was performed without contrast. There is minor retrolisthesis of L5 on S1. There are no acute compression fractures or marrow edema. There is a hemangioma L2. Degenerative endplate signal changes are seen at the lumbosacral junction. The conus medullaris terminates at the thoracolumbar junction . Is normal in caliber and signal. No paraspinal soft tissue abnormalities are seen. There is a left renal cyst. And T12-L1, there is no disc disease or stenosis. At L1-2 and L2-3, the discs are within normal limits for height and signal intensity. No significant disc bulge or herniation is seen. There is minor facet disease. No stenosis is identified. At L3-4 and L4-5, the discs are normal in height and signal intensity. There is minor annular disc bulging toward the neural foramen. There is also mild bilateral facet hypertrophy. There is no central stenosis. There is mild inferior foraminal encroachment at L3-4 on the left and at L4-5 bilaterally, however greater on the left. At the lumbosacral junction, there is loss of disc height and disc desiccation. Mild endplate spurring is seen. There is a broad-based central/right parasagittal disc protrusion measuring approximately 2 cm in width. There is also a small right parasagittal, caudal extruded fragment approximately 8 mm in size. Bilateral facet hypertrophy is seen, greater on the right. There is only minimal thecal sac effacement. There is impingement of the traversing right S1 nerve root. There is mild bilateral inferior foraminal encroachment. MR/MR lumbar spine wo con IMPRESSION: LOWER LUMBAR DISCOVERTEBRAL DEGENERATIVE CHANGES, GREATEST AT THE LUMBOSACRAL JUNCTION, DESCRIBED Impression dictated by: Leslie Ahn M.D. 09/16/2024 10:06 AM Dictation Location: [place] [address] Electronically authenticated by: [id number] Y Date: 09/16/2024 10:06
== END 2024-09-16 08:41 | disposition home or self-care (01) ==
LOC: MRI 08:40
PROVIDERS: PCP Nurse Practitioner; Visit Provider Nurse Practitioner
DX: M54.9 Dorsalgia, unspecified (principal); M51.369 Other intervertebral disc degeneration, lumbar region without mention of lumbar back pain or lower extremity pain
CPT/HCPCS: 72148

== ENCOUNTER 2024-09-26 14:53 | Emergency (ER) | payer BC, OTHER, SELFPAY ==
--- OUTSIDE RECORDS SUMMARY | 2021-10-19 10:00 | XMS_ITS | Continuity of Care Document ---
Author Organization [facility] Address [address] [place] [address] Phone Care Team Providers Care Hog Trader Name Role Phone Thomas Brody DDS Unavailable Unavail able Allergies, Adverse Reactions, Alerts Substance Reaction Status Criticality No Known Allergies Active No Inform ation Medications Medication Instructions Dosage Effective Dates (start - stop) Status Comments Advil 200 mg tablet take 1 tablet by ora l route every 6 hours as needed with food 200 MG - Active Procedures Procedure Date Extract; Erupted Th/exposted Rt 022 Extract; Erupted Th/exposted Rt 022 Intraoral-periapical 1st Film 2 Vubzibqyo-ilmcuwngjk-iqyp Additional July Bitewig-single Film Oral Hygiene Instruction Limited Oral Eval IMMUNIZATION ADMIN HEP A/HEP B VACC, ADULT IM IMMUNIZATION ADMIN HEP A/HEP B VACC, ADULT IM IMMUNIZATION ADMIN HEP A/HEP B VACC, ADULT IM TB INTRADERMAL TEST UDS Exempt Advance Directives Directive Yes / No Effective Date File Name No Information Encounters Encounter Description Practice Location Reason(s) For Visit Diagnoses Date Provider Providers Copied on Encounter [facility], [address] [place] [address], [id number], tel:[phone] Dental Clinic ext (chief complaint) No Information 2 Ronn Guzman. [address], [place], [id number], [place]. tel:[phone] [facility], [address], [place], [id number], [place] tel:[phone] Dental Clinic EMG (chief complaint) Encounter for screening for dental disorders 9202 2 Donnell TACHOIsis Lupillo. [address] [place], [address], [place]. tel:[phone] [facility], [address], [place], [id number], [place] tel:[phone] [facility] No Information 8 9 Hugo Merritt. [address], [place], [id number], [place]. tel:[phone] [facility], [address], [place], [id number], [place] tel:[phone] [facility] Encounter for screening for respiratory tuberculosis Jun-3 0-201 9 Visclouise Merritt. [address], [place], [id number], [place]. tel:[phone] [facility], [address], [place], [id number], [place] tel:[phone] [facility] Encounter for screening for respiratory tuberculosis Jun-2 3-201 9 Visclouise Merritt. [address], [place], [id number], [place]. tel:[phone] [facility], [address], [place], [id number], [place] tel:[phone] [facility] Encounter for screening for respiratory tuberculosis Apr-0 3-201 9 Visclouise Merritt. [address], [place], [id number], [place]. tel:[phone] [facility], [address], [place], [id number], [place] tel:[phone] [facility] Encounter for screening for respiratory tuberculosis 2-201 9 Hugo Merritt. [address] [place] [address], [id number], . tel:[phone] Family History Family Member Type Diagnosis Age At Onset No Information Immunizations Vaccine Date Status Comments Hep A and Hep B administered Source: New Immunization Record Hep A and Hep B administered Source: New Immunization Record Hep A and Hep B administered Source: New Immunization Record Payers Payer name Insurance type Covered libertarian ID Andie guzman(s) D Medicaid Wrap - [facility] [id number] Medicaid Wrap [facility] [id number] Medicaid Wrap [facility] [id number] Medicaid Wrap [facility] [id number] Social History Type Description Quantity Date Captured Comments Alcohol Use Details Unknown Caffeine Use Details Unknown Tobacco Use Status Current non-smoker Smoking Status Never smoker Sex Female Sexual Orientation Straight or heterosexual May Gender Identity Female Vital Signs Date / Time: Height Weight BMI Pulse Rate Blood Pressure Temperature Respiratory Rate Body Surface Area Head Circumference Head Circ. Percentile Wt./Jorge. Percentile BMI percentile Pulse Ox Inhaled Ox 1:57 PM 96 /min 144/93 mm[Hg] 98.80 F Chief Complaint And Reason For Visit From encounter dated '10/19/2021 14:00'. ext (chief complaint). Description: ext Reason For Referral Reason For Referral No Information Plan Of Treatment Date Type Action Status Goal Influenza vaccine. Due on Au g due Goal PRAPARE ASSESSMENT. Due on A due Goal Depression screening. Due on due Goal Lipid panel. Due on 022 due Goal RLP. Due on due Goal Tdap. Due on due History Of Present Illness Encounter Date Complaint History Of Prese nt Illness ext ext EMG Functional Status Date Functional Assessmen t No Information Instructions Date Instruction Additional Infor mation No Information Assessments Type Assessment Date No Information Patient Care Teams Name Effective Dates (start - stop) Status Members No Information
[2024-09-26 14:54] VITALS: BP 116/70; PULSE 100; O2SAT 100; BMI 39.2
--- NOTE | 2024-09-26 15:32 | CT_ITS ---
The [address] [address] Patient Name: ALEN TURNER MRN: [id number] date: 1980 Sex: F Assigned Patient Location: ER Current Patient Location: [facility] Accession/Order Number: [id number] Exam Date: 09/26/2024 15:43 Report Date: 09/26/2024 15:55 At the request of: EMERALD GAINES Procedure: CT facial bones wo con MAXILLOFACIAL CT WITHOUT CONTRAST: CLINICAL HISTORY: facial lacerations and contusion COMPARISON: None TECHNIQUE: Spiral axial unenhanced images were obtained through the facial bones. Coronal and sagittal reconstructions were also reviewed. This CT exam was performed using one or more following dose reduction techniques: Automated exposure control, adjustment of the mA and/or kV according to patient size, or use of iterative reconstruction technique. FINDINGS: Right orbital floor blowout fracture containing orbital fat. Depression of the roof floor noted. Slight downward deviation of the right inferior rectus muscle. Inferior rectus muscle appears rounded in configuration, correlate with possible entrapment. Globes are grossly intact. There is increased attenuation retroconal fat/intraconal fat right orbit noted. No high density fluid or loculated fluid to suggest retrobulbar hematoma. There is however slight straightening of the right optic nerve sheath complex when compared to the contralateral side which may suggest slight tethering. No tenting of the posterior wall of the globe identified. Right nasal bone fracture. Leftward nasal septal deviation with spur formation. Aorta is otherwise intact. [Plates intact. Remainder of the maxillary pederson appear intact. Mandible is intact without TMJ subluxation. Dental disease noted. Right forehead contusion soft tissue swelling. CT/CT facial bones wo con IMPRESSION: Right orbital floor fracture with congested/contused appearance right intraconal fat. No definite loculated high retrobulbar hyperdensity to convincingly suggest retroconal hematoma Slight tethered appearance of the right optic nerve sheath complex on comparison to contralateral side without evidence of tented appearance of the posterior globe. Right maxillary sinus air hemorrhage level. Right nasal bone fracture. Impression dictated by: Yunior Henning M.D. 09/26/2024 3:55 PM Dictation Location: [place] [address] Electronically authenticated by: [id number] Y Date: 09/26/2024 15:55
--- NOTE | 2024-09-26 15:32 | CT_ITS ---
The [address] [address] Patient Name: ALEN TURNER MRN: [id number] date: 1980 Sex: F Assigned Patient Location: ER Current Patient Location: ED.MAIN Accession/Order Number: [id number] Exam Date: 09/26/2024 15:41 Report Date: 09/26/2024 15:59 At the request of: EMERALD GAINES Procedure: CT head/brain wo con CT BRAIN WITHOUT CONTRAST: CLINICAL HISTORY: head injury COMPARISON: 03/15/2019 CT TECHNIQUE: Contiguous axial unenhanced images were obtained through the brain. This CT exam was performed using one or more following dose reduction techniques: Automated exposure control, adjustment of the mA and/or kV according to patient size, or use of iterative reconstruction technique. FINDINGS: There is no evidence of midline shift, intra or extra-axial fluid collection, hemorrhage or CT evidence of acute large vascular distribution stroke. Visualized intraorbital contents appear unremarkable. Right maxillary sinus air-fluid level. The surrounding soft tissues are normal. CT/CT head/brain wo con IMPRESSION: NO ACUTE INTRACRANIAL ABNORMALITY. RIGHT MAXILLARY SINUS AIR-FLUID LEVEL, PLEASE SEE SEPARATELY DICTATED CT FACIAL BONES Impression dictated by: Yunior Henning M.D. 09/26/2024 3:59 PM Dictation Location: [place] [address] Electronically authenticated by: [id number] Y Date: 09/26/2024 15:59
--- OUTSIDE RECORDS SUMMARY | 2024-09-26 15:37 | XMS_ITS | Clinical Summary ---
Author Organization [facility] Address [address], [address] [place] [address] Care Team Providers Care Director [employer] Name Role Phone Unavailable Primary Care Provider Unavailabl e Social History Tobacco Use Types Packs/Day Years Used Date Smoking Tobacco: Never Assessed Comments Unknown Sex and Gender Information Value Date Recorded Sex Assigned at Not on file Legal Sex Female 10:49 PM EDT Gender Identity Not on file Sexual Orientation Not on file Plan of Treatment Health Maintenance Due Date Last Done Comments DTaP/Tdap/Td vaccine (1 - Tdap) 1998 COVID-19 Vaccine (2023-2 5 season) 2023 Flu vaccine (#1) 10/04/2024 Polio vaccine Aged Out No longer elig ible based on patient's age to complete this topic Insurance [address] [place] [address] [employer]
--- OUTSIDE RECORDS SUMMARY | 2024-09-26 15:37 | XMS_ITS | Clinical Summary ---
Author Organization [facility] Address [address] [place] [address] Care Team Providers Care Cloth Seconds Sorter Name Role Phone Unavailable Primary Care Provider Unavailabl e Allergies No known active allergies Medications No known medications Social History Tobacco Use Types Packs/Day Years Used Date Smoking Tobacco: Never Assessed Comments Unknown Sex and Gender Information Value Date Recorded Sex Assigned at Not on file Legal Sex Female 10:38 AM EST Gender Identity Not on file Sexual Orientation Not on file Last Filed Vital Signs Vital Sign Reading Time Taken Comments Blood Pressure 120/80 04/10/2024 11:24 AM EST Pulse 91 04/10/2024 11:24 AM EST Temperature 36.4 C (97.6 F) 04/10/2024 11:24 AM EST Respiratory Rate - - Oxygen Saturation 98% 04/10/2024 11:24 AM EST Inhaled Oxygen Concentration - - Weight 105 kg (232 lb) 04/10/2024 11:24 AM EST Height - - Body Mass Index - - Plan of Treatment Not on file
--- OUTSIDE RECORDS SUMMARY | 2024-09-26 15:38 | XMS_ITS | Patient Health Record ---
Author Organization [facility] Address [address] [place] [address] Support Name Relationship Address Phone ALEN TURNER Guarantor Unknown Allergies No Known Allergies Reason For Referral No Information Medications Medication SIG (Take, Route, Fr equency, Duration) Notes Start Date End Date Status ibuprofen Active aspirin 325 mg 1 tab(s) orally once a day for 21 days 05/01/2023 Active Social History Tobacco Use: Social History Observation Description Date Details (start date - stop date) Current Smoker NA - NA Smoking History Question Answer Notes Smoking Status Current Smoker Alcohol Screening Question Answer Notes Did you have a drink containging alcohol in the last year? No Points 0 Interpretation Negative Problems Problem Type SNOMED Code ICD Code Onset Dates Problem Status W/U Status Risk Notes Problem [id number] Other tear of medial meniscus, current injury, right knee, subsequent encounter (S83.241D) Active confirmed Problem Acute tear of medial meniscus of right knee (disorder) ([id number]) Tear of medial meniscus of right knee, current, unspecified tear type, initial encounter (S83.241A) Active confirmed Problem Tear of lateral meniscus of right knee, current, unspecified tear type, initial encounter (S83.281A) Active confirmed Problem [id number] Bucket-handle tear of medial meniscus of right knee as current injury, initial encounter (S83.211A) Active confirmed Problem [id number] Tear of lateral meniscus of right knee, current, unspecified tear type, subsequent encounter (S83.281D) Active confirmed Plan Of Treatment No Information Insurance Providers Payer Name Payer Address Payer Phone Subscriber Number Group Number Insured Name Patient Relationship to Insured Coverage Start Date Coverage End Date [facility] [address] [place] [address] [phone] [id number] ALEN TURNER Self - patient is the insured Medical (General) History Surgical History Surgery Date(Month/Year) Arthroscopic right knee with partial med ial and lateral meniscectomy 05/08/2023
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
[2024-09-26] MEDS: ACETAMINOPHEN 500 MG TABLET 1000 MG PO (16:18)
--- NOTE | 2024-09-26 16:27 | PC.NURSE ---
facial injuries, right eye, forehead and nose
[2024-09-26 16:48] LABS: Hematocrit 41.9 % (36.0-48.0); Hemoglobin 13.6 g/dL (12.0-16.0); Immature Granulocytes Abs Auto 0.16 10^3/uL (0.00-0.03); Immature Granulocytes Pct Auto 0.9 % (0.0-0.5); Lymphocytes Absolute Auto 1.5 10^3/uL (1.2-3.8); Mean Corpuscular HGB Conc 32.5 g/dL (29.9-35.2); Mean Corpuscular Hemoglobin 24.9 pg (26.7-34.0); Mean Corpuscular Volume 76.6 fL (81.0-99.0); Platelet Count 436 10^3/uL (150-450); Red Blood Count 5.47 10^6/uL (4.20-5.40); White Blood Count 17.8 10^3/uL (4.0-11.0)
[2024-09-26 17:11] LABS: INR 1.04; Prothrombin Time 11.0 sec (9.0-11.6)
[2024-09-26 17:22] LABS: Alanine Aminotransferase 20 U/L (14-59); Albumin Globulin Ratio 0.9; Albumin Level 3.5 g/dL (3.4-5.0); Alkaline Phosphatase 73 U/L (46-116); Anion Gap 14.7; Aspartate Amino Transferase 13 U/L (15-37); Blood Urea Nitrogen 21.0 mg/dL (7.0-18.0); Calcium 9.5 mg/dL (8.5-10.1); Carbon Dioxide 27.1 mmol/L (21.0-32.0); Chloride 102 mmol/L (98-107); Estimated GFR (African America >60 (>=60 mL/min/1.73m^2); Estimated GFR (Non-African Ame >60 (>=60 mL/min/1.73m^2); Globulin 4.1 g/dL; Glucose 114 mg/dL (74-106); Potassium 4.8 mmol/L (3.5-5.1); Sodium 139 mmol/L (136-145); Total Protein 7.6 g/dL (6.4-8.2)
[2024-09-26 17:24] LABS: Partial Thromboplastin Time 27.1 sec (22.3-36.2)
[2024-09-26 18:30] VITALS: BP 134/79; PULSE 91; TEMP 36.9; O2SAT 97
== END 2024-09-26 18:30 | disposition short-term general hospital (02) ==
PROVIDERS: Physician Assistant; Emergency Provider Emergency Medicine; PCP Nurse Practitioner
DX: S09.8XXA Other specified injuries of head, initial encounter (principal); S02.31XA Fracture of orbital floor, right side, initial encounter for closed fracture; S02.2XXA Fracture of nasal bones, initial encounter for closed fracture; S02.401A Maxillary fracture, unspecified side, initial encounter for closed fracture; Y09 Assault by unspecified means; S01.81XA Laceration without foreign body of other part of head, initial encounter
CPT/HCPCS: 12013; 36415; 70450; 70486; 80053; 84703; 85025; 85610; 85730; 99285

== ENCOUNTER 2024-12-20 14:52 | Outpatient (RCR) | payer BC, SELFPAY | END 2025-02-18 11:09 | disposition home or self-care (01) | LOC: PT 14:52 | PROVIDERS: PCP Nurse Practitioner; Visit Provider Physical Medicine & Rehabilitation | DX: M46.1 Sacroiliitis, not elsewhere classified (principal) | CPT/HCPCS: 97014; 97110; 97112; 97161 ==